=== PATIENT | female | born 1950 | race African-American/Black ===

== ENCOUNTER 2018-07-01 17:34 | Observation (INO) | payer OTHER ==
[2018-07-01 17:51] VITALS: TEMP 99; BMI 32.5
--- NOTE | 2018-07-01 18:13 | PDOC ---
Attending Attestation - HPI HPI: The patient is 68 year old female with a past medical history of GERD, diabetes , hypertension, and hyperlipidemia who presents to the emergency department for evaluation of a 1 day history of nausea, headache, and decreased appetite. The patient reports a 3 day history of intermittent chills and constipation, but notes she is still able to pass flatus. She also reports intermittent episodes of right sided chest pain which is reminiscent to her acid reflux pain which she states has been going on for 10 years. The patient denies dyspnea, diarrhea, and emesis. Documentation prepared by Reggie Long, acting as medical billing manager for Nicolás Pizano MD. - Physicial Exam PE: wnwd 68 y/o female in no acute distress head ncat Heart RRR. No gallops, murmurs, or rubs. lungs clear to auscultation bilaterally abd soft,nontender <Reggie Long - Last Filed: 07/01/18 19:41> - Resident Resident Name: Clinton Alex - ED Attending Attestation I have performed the following: I have examined & evaluated the patient, The case was reviewed & discussed with the resident, I agree w/resident's findings & plan, Exceptions are as noted - Medical Decision Making 07/01/18 19:53 Patient is a 68-year-old female with multiple comorbidities who presents with persistent nausea, generalized weakness and malaise associated with intermittent mild headache and right-sided chest pain. In the ER, patient is afebrile, hypertensive on initial evaluation. Chest x-ray reveals no evidence of infiltrate or effusion. EKG reveals inverted T waves in 1, aVL, V4 through V6 (V4 through V6 T-wave abnormalities are new when compared to an EKG from 2015.) Differential diagnoses includes ACS versus esophagitis versus GERD versus gastritis versus pancreatitis versus viral syndrome. Will administer aspirin, H2 blockers, transdermal nitroglycerin; we'll judiciously hydrate. Will obtain serial EKGs. Will reassess. <Nicolás Pizano - Last Filed: 07/01/18 21:54> Heart Score/ECG Review - ECG Impressions Comment:: EKG was reviewed by Dr. Pizano at 19:32. Impression: Normal sinus rhythm. Possible left atrial enlargement. T wave abnormality, consider lateral ischemia. Abnormal ECG. Vent. rate: [address] interval: 126 ms QRS duration: 86 ms QT/QTc: 414/414 ms PRT axes: 62 37 121 <Reggie Long - Last Filed: 07/01/18 19:41> - History History: Slightly suspicious - Electrocardiogram EKG: Non specific repolarization disturbance - Age Age: >/= 65 - Risk Factors Risk Factors Heart Score: Yes Hx Hypercholesterolemia, Yes Hx Hypertension, Yes Hx Diabetes Based on the list above the patient has:: >/=3 risk factors or Hx atherosclerotic disease - Troponin Troponin: </= normal limit - Score Heart Score - Total: 5 <Nicolás Pizano - Last Filed: 07/01/18 21:54>
[2018-07-01] MEDS ORDERED: ONDANSETRON *ODT* 4 MG TABLET SL ONE (18:17)
--- NOTE | 2018-07-01 18:17 | PDOC ---
History of Present Illness - General Chief Complaint: Nausea Stated Complaint: NAUSEA Time Seen by Provider: 07/01/18 18:07 History Source: Patient Exam Limitations: No Limitations - History of Present Illness Initial Comments: 07/01/18 18:11 68 yo female pmh of HTN, HLD, IDDM, GERD, hysterectomy and cholycystectomy presents to the ED for 1 day of progressive nausea and poor appetite and 3 days of constipation (patient admits to passing gas today) and chills. Pt admits to right sided non exertional CP that feels like past GERD flare ups she has had. Pt denies sick contacts, recent travel or eating new foods. Denies abdominal pain in any quadrant, SOB, changes in urinary habits, back pain. Past History - Past Medical History Allergies/Adverse Reactions: Allergies Allergy/AdvReac Type Severity Reaction Status Date / Time No Known Allergies Allergy Verified 07/01/18 17:51 Home Medications: Ambulatory Orders Losartan Potassium 100 mg PO DAILY 06/13/15 Amlodipine Besylate [Norvasc -] 5 mg PO DAILY 07/01/18 Aspirin [Aspirin EC] 81 mg PO DAILY 07/01/18 Famotidine [Pepcid] 40 mg PO DAILY 07/01/18 Repaglinide [Prandin -] 1 mg PO TID 07/01/18 Simethicone [Gas Relief] 125 mg PO QID 07/01/18 COPD: No Diabetes: Yes HTN: Yes - Surgical History Cholecystectomy: Yes - Immunization History Immunization Up to Date: Yes - Suicide/Smoking/Psychosocial Hx Smoking History: Never smoked Have you smoked in the past 12 months: No Information on smoking cessation initiated: No Hx Alcohol Use: No Drug/Substance Use Hx: No Substance Use Type: None Review of Systems - Review of Systems Constitutional: Yes: Chills. No: Fever Respiratory: No: Shortness of Breath Cardiac (ROS): No: Chest Pain ABD/GI: Yes: Constipated, Nausea. No: Diarrhea, Vomiting : No: Burning, Dysuria, Frequency, Flank Pain Musculoskeletal: No: Back Pain *Physical Exam - Vital Signs Last Vital Signs Temp Pulse Resp BP Pulse Ox 99.0 F 64 16 186/94 H 99 07/01/18 17:48 07/01/18 17:48 07/01/18 17:48 07/01/18 17:48 07/01/18 17:48 - Physical Exam General Appearance: Yes: Nourished, Appropriately Dressed, Apparent Distress ( supine holding abdomen stating she feels as though she will vomit) HEENT: positive: EOMI Respiratory/Chest: positive: Lungs Clear, Normal Breath Sounds Cardiovascular: positive: Regular Rhythm, Regular Rate, S1, S2. negative: Edema , JVD, Murmur Vascular Pulses: Dorsalis-Pedis (R): 4+, Doralis-Pedis (L): 4+ Gastrointestinal/Abdominal: positive: Normal Bowel Sounds, Flat, Soft. negative : Pulsatile Mass, Distended, Guarding, Rebound, Tenderness Musculoskeletal: positive: Normal Inspection. negative: CVA Tenderness Extremity: positive: Normal Capillary Refill Integumentary: positive: Normal Color, Dry, Warm Neurologic: positive: Fully Oriented, Alert, Normal Mood/Affect, Normal Response Moderate Sedation - Procedure Monitoring Vital Signs: Procedure Monitoring Vital Signs Temperature 99.0 F 07/01/18 17:48 Pulse Rate 64 07/01/18 17:48 Respiratory Rate 16 07/01/18 17:48 Blood Pressure 186/94 H 07/01/18 17:48 O2 Sat by Pulse Oximetry (%) 99 07/01/18 17:48 ED Treatment Course - LABORATORY CBC & Chemistry Diagram: 07/01/18 19:25 07/01/18 19:25 - RADIOLOGY Radiology Studies Ordered: Category Date Time Status CHEST X-RAY PORTABLE* [RAD] Stat Radiology 07/01/18 18:08 Ordered Medical Decision Making - Medical Decision Making 07/01/18 20:14 68 yo female pmh IDDM, HTN, HLD and GERD presents to the ED for 1 day of nausea without vomiting and 3 days of constipation and chills. Rectal temp 99.2 BP elevated, pt states she took BP meds today DDX includes but is not limited to: ACS, UTI, kidney stone, diverticulitis, SBO Pt receiving 500ml NS and Pending labs, ekg, imaging sign out to Dr. Marmolejo
[2018-07-01] MEDS ORDERED: ONDANSETRON *ODT* 4 MG TABLET ONE (19:20)
[2018-07-01] MEDS ORDERED: ASPIRIN 325 MG TABLET PO ONE (19:37)
[2018-07-01] MEDS ORDERED: NITROGLYCERIN 2% OINTMENT - 1GM PACKET TD ONE ×2 (19:37→20:11)
--- NOTE | 2018-07-01 19:37 | PDOC ---
*Physical Exam - Vital Signs Last Vital Signs Temp Pulse Resp BP Pulse Ox 99.0 F 64 16 186/94 H 99 07/01/18 17:48 07/01/18 17:48 07/01/18 17:48 07/01/18 17:48 07/01/18 17:48 Heart Score/ECG Review - History History: Slightly suspicious - Electrocardiogram EKG: Non specific repolarization disturbance - Age Age: >/= 65 - Risk Factors Risk Factors Heart Score: Yes Hx Hypercholesterolemia, Yes Hx Hypertension, Yes Hx Diabetes, Yes Positive family hx of cardiac disease Based on the list above the patient has:: >/=3 risk factors or Hx atherosclerotic disease - Troponin Troponin: </= normal limit - Score Heart Score - Total: 5 - ECG Intrepretation Rhythm: Regular Rhythm - [place]: Normal - P and [place] Atrial Enlargement: Left - ST and T Non Specific ST-T Wave changes: Yes Comment:: inverted T waves in 1, AvL, v4-v6 - ECG Impressions Comment:: flipped T waves in multiple leads which were not present in [address] elevation in v1. ED Treatment Course - LABORATORY CBC & Chemistry Diagram: 07/01/18 19:25 07/01/18 19:25 Medical Decision Making - Medical Decision Making Patient received as sign out from the day team. I placed a 22 gauge IV in the left forearm and sent labs. 1st EKG showed flipped T 2waves in1, AvL, v4-v6 which were not present in 2015 EKG Repeat EKG 20 minutes later showed no acute changes. Repeat EKG 30 minutes later shows no acute changes. Given patient has a HEART score of 5 will admit for further cardiac workup. *DC/Admit/Observation/Transfer Diagnosis at time of Disposition: Chest pain, EKG abnormalities - Discharge Dispostion Decision to Admit order: Yes - Referrals - Patient Instructions - Post Discharge Activity Procedures - Additional Procedures Additional Procedures: other (22 Gauge IV placed in left forearm)
[2018-07-01] MEDS ORDERED: FAMOTIDINE 20 MG/50 ML IVPB 20 MG/50 ML MG IVPB ONE ×2 (19:38→20:11)
[2018-07-01 19:39] LABS: BASO % 0.7 % (0-2.0); EOS % 1.3 % (0-4.5); HEMATOCRIT 40.3 % (32.4-45.2); HEMOGLOBIN 13.9 GM/dL (10.7-15.3); LYMPH % 21.4 % (8-40); MCH 28.8 pg (25.7-33.7); MCHC 34.6 g/dl (32.0-36.0); MEAN CELL VOLUME 83.3 fl (80-96); MEAN PLT VOLUME 9.9 fl (7.5-11.1); MONO % 5.7 % (3.8-10.2); NEUT % 70.9 % (42.8-82.8); PLATELET COUNT 232 K/MM3 (134-434); RBC 4.84 M/mm3 (3.60-5.2); RDW 15.9 % (11.6-15.6); WHITE BLOOD COUNT 6.2 K/mm3 (4.0-10.0)
[2018-07-01] MEDS ORDERED: ASPIRIN 81 MG CHEWABLE TABLETS ONE (20:10)
[2018-07-01 20:32] LABS: ALBUMIN 3.7 g/dl (3.4-5.0); ALK PHOS 119 U/L (45-117); ANION GAP 6 MMOL/L (8-16); BILIRUBIN,TOTAL 0.5 mg/dL (0.2-1); BLOOD UREA NITROGEN 15 mg/dL (7-18); CHLORIDE 107 mmol/L (98-107); CO2 27 mmol/L (21-32); CREATININE 1.1 mg/dL (0.55-1.3); GLUCOSE,RANDOM 173 mg/dL (74-106); LIPASE 116 U/L (73-393); POTASSIUM 3.7 mmol/L (3.5-5.1); SGOT/AST 24 U/L (15-37); SGPT/ALT 27 U/L (13-61); SODIUM 140 mmol/L (136-145); TOT PROT 7.9 g/dl (6.4-8.2)
[2018-07-01 20:35] LABS: URINE APPEARANCE CLEAR; URINE BILIRUBIN NEGATIVE (<2.0 mg/dL); URINE COLOR LTYELLOW; URINE GLUCOSE (UA) 1+ (NEGATIVE); URINE KETONE NEGATIVE (NEGATIVE); URINE LEUK ESTERASE NEGATIVE (NEGATIVE); URINE NITRITE NEGATIVE (NEGATIVE); URINE PROTEIN 2+ (NEGATIVE); URINE UROBILINOGEN NEGATIVE mg/dL (0.2-1.0)
[2018-07-01 20:38] LABS: EPI CELLS RARE /HPF (FEW); URINE BACTERIA RARE /hpf (NONE SEEN); URINE HYALINE CAST 1 /lpf; URINE MUCUS RARE
--- NOTE | 2018-07-01 23:11 | PN ---
Teaching Attending Note Name of Resident: Shimon Garcia ATTENDING PHYSICIAN STATEMENT I saw and evaluated the patient. I reviewed the resident's note and discussed the case with the resident. I agree with the resident's findings and plan as documented. CC: R-sided/substernal CP SUBJECTIVE: Seen and examined; please refer to the resident note for further historical information. Briefly, this is a 68 y/o female presenting with CP. She has multiple risk factors and does have a history of CAD though we do not have any prior cath reports, etc. She is hemodynamically stable and afebrile. The pain has been on and off for years. It is R-sided/substernal and sharp in nature; mild association with some foods. She estimated her stents being 7 years ago. She had an initial negative set of enzymes; cardiomegaly noted. EKG shows inverted T-waves in V3,4,5 that were not there on the prior study from 2014. She is hypertensive to the 190s. She is chest pain free at this juncture. Placing on telemetry on observation. PMH: GERD, DM, HTN, HLD, CAD (states she had prior stents, hasn't seen CV in >5 years) PSH reviewed; hysterectomy and cholecystectomy Socially she is nonsmoker, nondrinker FH asked and noncontributory Medication list reviewed OBJECTIVE: VS, labs, imaging reviewed NAD, AAOx3, resting in bed RRR s1/2 no mgr Lungs CTAB w/ sym exp NC AT EOMI PERRLA CN2-12 wnl, no fnd Labs show transaminitis that is stable from earlier this month, troponin negative, CBC unremarkable, BMP unremrkable aside from hyperglycemis to 170s CXR unremarkable but enlarged heart EKG with new T-wave inversions in V4-V6 which were not on old EKG from remote time ago ASSESSMENT AND PLAN: Mrs. Flores presents with Chest Pain found to be hypertensive to 190s. 1) Chest Pain -High risk, especially given the history of CAD even though the presentation could be construed as somewhat atypical. Furthermore, the patient's hypertension could be contributing to the sensation of chest pain. Still, need to r/o ACS. -Tele, trend troponins, stress test in the AM and 2D echo -TSH, Lipid, A1c. -Consider CV consult. Obtain old records. Control HTN as per issue #2 2) Hypertensive Urgency -Continue Losartan 100; increase amlodipine to 10. Though for CAD, adding coreg 3.125 BID which will have some effect on BP. PRN hydralazine. If uncontrolled on this regimine consider addition of a third agent. Monitor on telemetry. No evidence of end organ damage 3) History of CAD -Obtain old records; h/o remote stent -ASA 81 PO QD. Continue ARB. Adding BB. She states she had muscle pain with statins; check lipids and see what old drugs she reacted on. Once her degree of HLD is determined we can consider initiating here vs. OP followup 4) GERD -Given the association of the CP with eating could indicate GERD (she is s/p cholecystectomy) -DC H2 bryanna, start protonix 40 PO QD 5) Cardiomegaly -Echo pending; euvolemic now. Careful fluid management. At the very least is at risk for CHF given prior CAD and hypertension 6) DM -SSI; check A1c and verify home meds 7) HLD -Discussed in #3 Full Code
[2018-07-01] MEDS ORDERED: LABETALOL HCL 100 MG TABLET (FP) PO ONE (23:21)
[2018-07-01] MEDS ORDERED: hydrALAZINE HCL 20 MG/ML VIAL IVPUSH ONE (23:45)
--- NOTE | 2018-07-01 23:46 | HP ---
CHIEF COMPLAINT: R sided chest pain HISTORY OF PRESENT ILLNESS: 68 year old female with a hx of GERD, DM, HTN, HLD, previous stents 7 years ago presents for 1 day of R sided chest pain she states began this morning. Reports the pain on the R side and substernal, rates it at an 8/10 and only radiates to the right. States that milk, spices, and anything else that she eats exacerbates the pain. Does not report any pain on deep inspiration or palpation of the area. States that she has had this pain for 20 years on and off, for which she was diagnosed with GERD in the past and started on famotidine. She has had coronary artery disease (patient is a poor historian on this aspect) and reports she had stents put in 7 years ago but does not remember who the director web is and does not recall any further history about her condition. 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 ER course was notable for: (1) EKG new T wave inversions in leads V4-V6 (2) Trop negative (3) Recent Travel: denies PAST MEDICAL HISTORY: GERD, DM, HTN, HLD PAST SURGICAL HISTORY: stents put in, cholecystectomy, hysterectomy Social History: Smoking: denies Alcohol: denies Drugs: denies Family History: DM and HTN in mother Allergies No Known Allergies Allergy (Verified 07/01/18 17:51) HOME MEDICATIONS: Home Medications Medication Instructions Recorded Losartan Potassium 100 mg PO DAILY 06/13/15 Amlodipine Besylate [Norvasc -] 5 mg PO DAILY 07/01/18 Aspirin [Aspirin EC] 81 mg PO DAILY 07/01/18 Famotidine [Pepcid] 40 mg PO DAILY 07/01/18 Repaglinide [Prandin -] 1 mg PO TID 07/01/18 Simethicone [Gas Relief] 125 mg PO QID 07/01/18 REVIEW OF SYSTEMS CONSTITUTIONAL: Absent: fever, chills, diaphoresis, generalized weakness, malaise, loss of appetite, weight change HEENT: Absent: rhinorrhea, nasal congestion, throat pain, throat swelling, difficulty swallowing, mouth swelling, ear pain, eye pain, visual changes CARDIOVASCULAR: Absent: chest pain, syncope, palpitations, irregular heart rate, lightheadedness , peripheral edema RESPIRATORY: Absent: cough, shortness of breath, dyspnea with exertion, orthopnea, wheezing, stridor, hemoptysis GASTROINTESTINAL: Absent: abdominal pain, abdominal distension, nausea, vomiting, diarrhea, constipation, melena, hematochezia GENITOURINARY: Absent: dysuria, frequency, urgency, hesitancy, hematuria, flank pain, genital pain MUSCULOSKELETAL: Absent: myalgia, arthralgia, joint swelling, back pain, neck pain SKIN: Absent: rash, itching, pallor HEMATOLOGIC/IMMUNOLOGIC: Absent: easy bleeding, easy bruising, lymphadenopathy, frequent infections ENDOCRINE: Absent: unexplained weight gain, unexplained weight loss, heat intolerance, cold intolerance NEUROLOGIC: Absent: headache, focal weakness or paresthesias, dizziness, unsteady gait, seizure, mental status changes, bladder or bowel incontinence PSYCHIATRIC: Absent: anxiety, depression, suicidal or homicidal ideation, hallucinations. PHYSICAL EXAMINATION Vital Signs - 24 hr 07/01/18 17:48 Temperature 99.0 F Pulse Rate 64 Respiratory 16 Rate Blood Pressure 186/94 H O2 Sat by Pulse 99 Oximetry (%) GENERAL: A&Ox3, no acute distress EYES: PERRLA, EOMI ENT: Moist mucus membranes NECK: No JVD LUNGS: CTA, no wheezes HEART: RRR, no murmurs ABDOMEN: Soft, nontender, BS present MUSCULOSKELETAL: No CVA Tenderness EXTREMITIES: 2+ pulses, no edema. NEUROLOGICAL: Cranial nerves II-XII intact. Laboratory Results - last 24 hr 07/01/18 07/01/18 07/01/18 19:25 19:25 20:25 WBC 6.2 RBC 4.84 Hgb 13.9 Hct 40.3 MCV 83.3 MCH 28.8 MCHC 34.6 RDW 15.9 H Plt Count 232 MPV 9.9 Absolute Neuts (auto) 4.4 Neutrophils % 70.9 Lymphocytes % 21.4 Monocytes % 5.7 Eosinophils % 1.3 Basophils % 0.7 Nucleated RBC % 0 Sodium 140 Potassium 3.7 Chloride 107 Carbon Dioxide 27 Anion Gap 6 L BUN 15 Creatinine 1.1 Creat Clearance w eGFR 49.10 Random Glucose 173 H Calcium 9.0 Total Bilirubin 0.5 AST 24 ALT 27 Alkaline Phosphatase 119 H Creatine Kinase 336 H Creatine Kinase Index 0.9 CK-MB (CK-2) 3.2 Troponin I < 0.02 Total Protein 7.9 Albumin 3.7 Lipase 116 Urine Color Ltyellow Urine Appearance Clear Urine pH 7.0 Ur Specific [place] 1.013 Urine Protein 2+ H Urine Glucose (UA) 1+ H Urine Ketones Negative Urine Blood Negative Urine Nitrite Negative Urine Bilirubin Negative Urine Urobilinogen Negative Ur Leukocyte Esterase Negative Urine WBC (Auto) 1 Urine RBC (Auto) 1 Ur Epithelial Cells Rare Urine Bacteria Rare Hyaline Casts 1 Urine Mucus Rare ASSESSMENT/PLAN: 68 year old female with a hx of GERD, DM, HTN, HLD, previous stents 7 years ago presents for 1 day of R sided chest pain #R sided chest pain: likely 2/2 GERD due to exacerbation with food, but with EKG changes and HEART score ~6, will admit to r/o cardiac pathology -obs telemetry -troponins were negative initially, will repeat now -EKG showed new T-wave inversions in leads V4-V6 -ordered echocardiogram -ordered lexiscan stress for the AM, NPO after midnight for stress test -cardiac monitoring -ASA 325 given in ED -continue home ASA 81 -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, will hold now -pt hypertensive - will treat -likely GERD related, will switch famotidine to protonix 40mg -consider cardiology consultation in AM #Hypertensive Urgency: BP was 191/116 in ED -increase amlodipine to 10mg in the AM -continue losartan 100mg daily -hydralazine 10mg once now, repeat BP in 1 hour #Diabetes Mellitus: BG was 173 on BMP -continue prandin -BGM ACHS -sliding scale as ordered -A1C in AM #FEN -fluids with LR at 83cc/hr overnight while NPO for stress -NPO for stress -replete lytes as necessary in AM #Prophylaxis -lovenox prophylaxis #Disposition -admit tele obs Visit type - Emergency Visit Emergency Visit: Yes Care time: The patient presented to the Emergency Department on the above date and was hospitalized for further evaluation of their emergent condition. - New Patient This patient is new to me today: Yes Date on this admission: 07/02/18 - Critical Care Critical Care patient: No
[2018-07-02] MEDS ORDERED: LACTATED RINGERS SOLUTION 1,000 ML/1,000 ML INFUS.BAG IV SCH (00:15)
[2018-07-02] MEDS ORDERED: hydrALAZINE HCL 20 MG/ML VIAL ONE (00:27)
[2018-07-02 05:52] LABS: HEMATOCRIT 39.9 % (32.4-45.2); HEMOGLOBIN 12.9 GM/dL (10.7-15.3); MCH 27.1 pg (25.7-33.7); MCHC 32.4 g/dl (32.0-36.0); MEAN CELL VOLUME 83.6 fl (80-96); MEAN PLT VOLUME 9.8 fl (7.5-11.1); PLATELET COUNT 213 K/MM3 (134-434); RBC 4.77 M/mm3 (3.60-5.2); RDW 15.8 % (11.6-15.6); WHITE BLOOD COUNT 5.5 K/mm3 (4.0-10.0)
[2018-07-02 06:36] LABS: ANION GAP 9 MMOL/L (8-16); BLOOD UREA NITROGEN 15 mg/dL (7-18); CALCIUM 8.9 mg/dL (8.5-10.1); CHLORIDE 105 mmol/L (98-107); CO2 25 mmol/L (21-32); CREATININE 1.2 mg/dL (0.55-1.3); GLUCOSE,RANDOM 145 mg/dL (74-106); MAGNESIUM 1.9 mg/dL (1.8-2.4); PHOSPHOROUS 2.6 mg/dL (2.5-4.9); POTASSIUM 3.5 mmol/L (3.5-5.1); SODIUM 139 mmol/L (136-145)
[2018-07-02] MEDS ORDERED: INSULIN SLIDING SCALE (NOVOLOG) 1 VIAL SQ SCH (07:00)
[2018-07-02] MEDS ORDERED: amLODIPine BESYLATE 5 MG TABLET (FP) ONE (07:49)
[2018-07-02] MEDS ORDERED: REPAGLINIDE 1 MG TABLET PO SCH (08:00)
[2018-07-02] MEDS ORDERED: INSULIN (NOVOLOG) ASPART 100 UNITS/ML 10ML VIAL ONE (08:18)
[2018-07-02] MEDS ORDERED: amLODIPine BESYLATE 10 MG TABLET (FP) PO SCH (10:00)
[2018-07-02] MEDS ORDERED: amLODIPine BESYLATE 5 MG TABLET (FP) PO SCH (10:00)
[2018-07-02] MEDS ORDERED: ENOXAPARIN NA (PORCINE) 40 MG/0.4 ML DISP.SYRIN SQ SCH (10:00)
[2018-07-02] MEDS ORDERED: PATIENT'S OWN MEDICATION (NON-FORMULARY) (Losartan Potassium [Losartan Potassium] 100 MG) PO SCH (10:00)
[2018-07-02] MEDS ORDERED: CARVEDILOL 3.125 MG TABLET (FP) PO SCH (10:00)
[2018-07-02] MEDS ORDERED: PANTOPRAZOLE 40 MG TABLET (FP) PO SCH (10:00)
[2018-07-02] MEDS ORDERED: LOSARTAN POTASSIUM 50 MG TABLET (FP) PO SCH (10:00)
[2018-07-02] MEDS ORDERED: RANITIDINE HCL 150 MG TABLET (FP) PO SCH (10:00)
[2018-07-02] MEDS ORDERED: ASPIRIN COATED 81 MG TABLET.EC PO SCH (10:00)
[2018-07-02] MEDS ORDERED: REGADENOSON 0.4 MG/5 ML PRE-FILLED SYRINGE IVPUSH ONE ×2 (11:00→12:00)
[2018-07-02] MEDS ORDERED: MAGNESIUM SULF 50% (8.12 MEQ/2 ML-1 GM VIAL) IVPB ONE (11:15)
--- NOTE | 2018-07-02 12:23 | ECHO ---
Version: 1 Name: SHEA MARCUM Exam: Adult Echocardiogram Study Date: 07/02/2018, 9:20 AM Age: 68 Years MMode/2D Measurements & Calculations IVSd: 1.46 cm LVIDs: 1.72 cm LVIDd: 2.9 cm LVPWd: 1.14 cm Ao root diam: 2.7 cm LA dimension: 3.4 cm Doppler Measurements & Calculations MV E max loy: 65.5 cm/sec Med E/e': 15.4 MV A max loy: 112.5 cm/sec Med Peak E' Loy: 4.2 cm/sec MV E/A: 0.58 Lat E/e': 15.1 Lat Peak E' Loy: 4.4 cm/sec Procedure A two-dimensional transthoracic echocardiogram with color flow and Doppler was performed. The study was technically difficult with many images being suboptimal in quality. Left Ventricle There is moderate concentric left ventricular hypertrophy. The left ventricle is not well visualized . The left ventricular ejection fraction is normal. E/A reversal consistent with but not diagnostic of poo r LV compliance. Regional wall motion abnormalities cannot be excluded due to limited visualization. Right Ventricle The right ventricle is not well visualized. Atria Normal left and right atrial size and function. Mitral Valve There is mild mitral valve thickening. There is no mitral valve stenosis. There is trace to mild christopher ral regurgitation. Tricuspid Valve The tricuspid valve is not well visualized. There is no tricuspid stenosis. There was insufficient T R detected to calculate RV systolic pressure. Aortic Valve The aortic valve is not well visualized. There is moderate aortic valve thickening. No hemodynamical ly significant valvular aortic stenosis. No aortic regurgitation is present. Pulmonic Valve The pulmonic valve is not well visualized. Great Vessels The aortic root is normal size. Pericardium/Pleura There is no pericardial effusion. Summary Statements There is moderate concentric left ventricular hypertrophy. The left ventricular ejection fraction is normal. The study was technically difficult with many images being suboptimal in quality. The left ventricle is not well visualized. Regional wall motion abnormalities cannot be excluded due to limited visualization. The aortic valve is not well visualized. There is moderate aortic valve thickening. E/A reversal consistent with but not diagnostic of poor LV compliance There is trace to mild mitral regurgitation. There was insufficient TR detected to calculate RV systolic pressure. MD Bill Dozier 07/02/2018, 12:22 PM Ordering Physician: Shimon Garcia Referring Physician: Nicolás Pizano Performed By: Hafsa Keyes
[2018-07-02] MEDS ORDERED: AMINOPHYLLINE 250 MG/10 ML VIAL ONE ×2 (12:35→12:36)
[2018-07-02] MEDS ORDERED: AMINOPHYLLINE 250 MG/10 ML VIAL IVPUSH ONE (13:00)
--- NOTE | 2018-07-02 14:29 | CON.CARD ---
Consult Consult Specialty:: Cardiology Referred by:: Hospitalist Reason for Consultation:: chest pain - History of Present Illness Chief Complaint: chest pain History of Present Illness: 68 year old woman pmh HTN, HLD, DMII, CAD prior stents unknown details, GERD, admitted with R sided chest pain. Pt seen and examined in er in nad. s/p echo and nuclear stress test. states she is feeling better since admission. states she has not had routine fup as outpatient, was previously seeing Dr. Jaylen Jo but he is no longer in practice. she has had a visiting MD for the past 3 years at home. states her pain feels like her GERD. denies sob, palpitations, pnd, orthopnea, LE edema. - History Source History Provided By: Patient, Medical Record Limitations to Obtaining History: No Limitations - Past Medical History Cardio/Vascular: Yes: CAD, HTN, Hyperlipdemia Gastrointestinal: Yes: GERD - Alcohol/Substance Use Hx Alcohol Use: No - Smoking History Smoking history: Never smoked Have you smoked in the past 12 months: No - Social History Usual Living Arrangement: With Child ADL: Family Assistance History of Recent Travel: No Home Medications - Allergies Allergies/Adverse Reactions: Allergies Allergy/AdvReac Type Severity Reaction Status Date / Time No Known Allergies Allergy Verified 07/01/18 17:51 - Home Medications Home Medications: Ambulatory Orders Losartan Potassium 100 mg PO DAILY 06/13/15 Amlodipine Besylate [Norvasc -] 5 mg PO DAILY 07/01/18 Aspirin [Aspirin EC] 81 mg PO DAILY 07/01/18 Famotidine [Pepcid] 40 mg PO DAILY 07/01/18 Repaglinide [Prandin -] 1 mg PO TID 07/01/18 Simethicone [Gas Relief] 125 mg PO QID 07/01/18 Family Disease History - Family Disease History Family History: Denies Review of Systems - Review of Systems Constitutional: denies: No Symptoms, Chills, Diaphoresis, Fever, Lethargy, Loss of Appetite, Malaise, Night Sweats, Unintentional Wgt. Loss, Weakness, Other Eyes: denies: No Symptoms, Blind Spots, Blurred Vision, Double Vision, Eye Pain , Floaters, Photophobia, Recent Change in Vision, Other HENT: denies: No Symptoms, Difficult Swallowing, Ear Discharge, Ear Pain, Epistaxis, Gingival Bleeding, Hearing Loss, Mouth Swelling, Nasal Congestion, Ocular Prosthesis, Throat Pain, Toothache, Ringing in Ears, Other Neck: denies: No Symptoms, Decreased ROM, Lumps, Pain on Movement, Stiffness, Swollen Glands, Tenderness, Other Cardiovascular: reports: Chest Pain. denies: No Symptoms, Edema, Palpitations, Shortness of Breath, Other Respiratory: denies: No Symptoms, Cough, Exercise Intolerance, Hemoptysis, Orthopnea, PND, Snoring, SOB, SOB on Exertion, Wheezing, Other Gastrointestinal: reports: Dysphagia. denies: No Symptoms, Abdominal Pain, Bloating, Constipation, Diarrhea, Indigestion, Melena, Nausea, Rectal Bleeding, Vomiting, Vomiting Blood, Other Genitourinary: denies: No Symptoms, Burning, Discharge, Dysuria, Flank Pain, Frequency, Hematuria, Incontinence, Lesions, Menses, Pain, Testicular Mass, Testicular Pain, Testicular Swelling, Urgency, Vaginal Bleeding, Other Breasts: denies: No Symptoms Reported, See HPI, Breast Implants, Discharge from Nipple, Lumps, Pain, Skin Changes, Other Musculoskeletal: denies: No Symptoms, Back Pain, Crepitus, Decreased ROM, Extremity Pain, Joint Pain, Joint Swelling, Muscle Pain, Muscle Cramps, Muscle Weakness, Other Integumentary: denies: No Symptoms, Blister, Bruising, Change in Color, Eczema, Erythema, Incision, Lesions, Lump, Pallor, Pruritis, Rash, Wound, Other Neurological: denies: No Symptoms, Change in LOC, Change in Speech, Confusion, Dizziness, Headache, Incoordination, Numbness, Parasthesia, Pre-Existing Deficit , Seizure, Syncope, Tremors, Unsteady Gait, Weakness, Other Hematology/Lymphatic: denies: No Symptoms, Easily Bruised, Excessive Bleeding, Swollen Glands, Other Psychiatric: denies: No Symptoms, Altered Sleep Pattern, Anxiety, Depression, Hallucinations, Panic, Paranoia, Suicidal, Other - Risk Factors Known Risk Factors: Yes: Hypercholesterolemia, Hypertension Vital Signs: Vital Signs Temperature 99.0 F 07/01/18 17:48 Pulse Rate 101 H 07/02/18 07:21 Respiratory Rate 18 07/02/18 07:21 Blood Pressure 137/80 07/02/18 07:21 O2 Sat by Pulse Oximetry (%) 96 07/02/18 07:21 Constitutional: Yes: No Distress, Calm Eyes: Yes: Conjunctiva Clear, EOM Intact, PERRL HENT: Yes: Atraumatic, Normocephalic Neck: Yes: Supple, Trachea Midline Respiratory: Yes: Regular, CTA Bilaterally. No: Rales, Rhonchi, Wheezes Gastrointestinal: Yes: Normal Bowel Sounds, Soft. No: Distention, Tenderness Cardiovascular: Yes: Regular Rate and Rhythm. No: Bradycardia, Tachycardia, Pulse Irregular, Gallop, Rub, Varicosities JVD: No Carotid Bruit: No PMI: Non-Displaced Heart Sounds: Yes: S1, S2. No: Split S2, S3, S4, Clicks, Gallop, Rub, Bruit Murmur: No: Systolic Murmur, Diastolic Murmur Musculoskeletal: Yes: WNL Extremities: Yes: WNL Edema: No Peripheral Pulses WNL: Yes Peripheral Pulses: 2+ Left Doralis Pedis, 2+ Right Dorsalis Pedis Integumentary: Yes: WNL Neurological: Yes: Alert, Oriented Psychiatric: Yes: Alert, Oriented - Other Data Labs, Other Data: CBC, BMP 07/02/18 05:25 07/02/18 05:25 Troponin, BNP 07/01/18 07/02/18 07/02/18 19:25 05:25 05:25 Troponin I < 0.02 < 0.02 Cancelled Troponin, BNP 07/01/18 07/02/18 07/02/18 19:25 05:25 05:25 Troponin I < 0.02 < 0.02 Cancelled T inversion Echo: Report Reviewed Imaging - Results Chest X-ray: Report Reviewed, Image Reviewed EKG: Report Reviewed, Image Reviewed Other: Report Reviewed, Image Reviewed Assessment/Plan 68 year old woman pmh HTN, HLD, DMII, CAD prior stents unknown details, GERD, admitted with R sided chest pain. Pt seen and examined in er in nad. s/p echo and nuclear stress test. states she is feeling better since admission. states she has not had routine fup as outpatient, was previously seeing Dr. Jaylen Jo but he is no longer in practice. she has had a visiting MD for the past 3 years at home. states her pain feels like her GERD. denies sob, palpitations, pnd, orthopnea, LE edema. chest pain-atypical, unlikely ACS -pain unlikely cardiac in origin -troponin wnl -echo today 07/02/18 showed normal LVEF, mod lVH, mild valvular abnl -nuclear stress test pending from today -if no sig ischemia on nuclear stress test pt would be acceptable for discharge from cardiac standpoint with outpatient fup HTN-severely uncontrolled on admission -now adequately controlled -cont home meds and adjust as needed.
--- NOTE | 2018-07-02 16:48 | EKG ---
Test Reason : Blood Pressure : / mmHG Vent. Rate : 080 BPM Atrial Rate : 080 BPM P-R Int : 120 ms QRS Dur : 084 ms QT Int : 386 ms P-R-T Axes : 071 041 123 degrees QTc Int : 445 ms POOR DATA QUALITY, INTERPRETATION MAY BE ADVERSELY AFFECTED NORMAL SINUS RHYTHM POSSIBLE LEFT ATRIAL ENLARGEMENT T WAVE ABNORMALITY, CONSIDER LATERAL ISCHEMIA ABNORMAL ECG WHEN COMPARED WITH ECG OF 01-JUL-2018 20:37, NONSPECIFIC T WAVE ABNORMALITY, WORSE IN INFERIOR LEADS Confirmed by ANJALI PAULSON MD ([id number]) on 07/02/2018 4:47:21 PM Referred By: Confirmed By:ANJALI PAULSON MD
--- NOTE | 2018-07-02 16:52 | EKG ---
Test Reason : Blood Pressure : / mmHG Vent. Rate : 061 BPM Atrial Rate : 061 BPM P-R Int : 126 ms QRS Dur : 084 ms QT Int : 418 ms P-R-T Axes : 061 033 127 degrees QTc Int : 420 ms NORMAL SINUS RHYTHM T WAVE ABNORMALITY, CONSIDER LATERAL ISCHEMIA ABNORMAL ECG WHEN COMPARED WITH ECG OF 01-JUL-2018 19:29, NO SIGNIFICANT CHANGE WAS FOUND Confirmed by ANJALI PAULSON MD ([id number]) on 07/02/2018 4:51:43 PM Referred By: Confirmed By:ANJALI PAULSON MD
--- NOTE | 2018-07-02 16:52 | EKG ---
Test Reason : Blood Pressure : / mmHG Vent. Rate : 060 BPM Atrial Rate : 060 BPM P-R Int : 126 ms QRS Dur : 086 ms QT Int : 414 ms P-R-T Axes : 062 037 121 degrees QTc Int : 414 ms NORMAL SINUS RHYTHM POSSIBLE LEFT ATRIAL ENLARGEMENT T WAVE ABNORMALITY, CONSIDER LATERAL ISCHEMIA ABNORMAL ECG WHEN COMPARED WITH ECG OF 13-JUN-2015 20:41, T WAVE INVERSION MORE EVIDENT IN LATERAL LEADS Confirmed by LORENE HOLBROOK, ANJALI ([id number]) on 07/02/2018 4:51:58 PM Referred By: Confirmed By:ANJALI PAULSON MD
--- NOTE | 2018-07-02 17:16 | DS ---
Physical Exam: SUBJECTIVE: Patient seen and examined at bedside this morning. Patient reports improvement of chest pain. She denies headache, dizziness, fever, chills, nausea , vomiting, SOB, palpitations, abdominal pain, diarrhea, constipation, urinary symptoms. OBJECTIVE: Vital Signs Period Temp Pulse Resp BP Sys/Gómez Pulse Ox Last 24 Hr 99.0 F 64-101 16-18 137-186/80-94 96-99 PHYSICAL EXAM GENERAL: The patient is awake, alert, and fully oriented, in no acute distress. HEAD: Normal with no signs of trauma. EYES: PERRLA, EOMI, sclera anicteric, conjunctiva clear. ENT: Ears normal, nares patent, oropharynx clear without exudates, moist mucous membranes. NECK: Trachea midline, full range of motion, supple. LUNGS: Breath sounds equal, clear to auscultation bilaterally. HEART: Regular rate and rhythm, S1, S2 without murmur, rub or gallop. ABDOMEN: Soft, nontender, nondistended, normoactive bowel sounds. EXTREMITIES: 2+ pulses, warm, well-perfused, no edema. NEUROLOGICAL: Cranial nerves II through XII grossly intact. Normal speech, gait not observed. PSYCH: Normal mood, normal affect. SKIN: Warm, dry, normal turgor, no rashes or lesions noted. LABS Laboratory Results - last 24 hr 07/01/18 07/01/18 07/01/18 19:25 19:25 20:25 WBC 6.2 RBC 4.84 Hgb 13.9 Hct 40.3 MCV 83.3 MCH 28.8 MCHC 34.6 RDW 15.9 H Plt Count 232 MPV 9.9 Absolute Neuts (auto) 4.4 Neutrophils % 70.9 Lymphocytes % 21.4 Monocytes % 5.7 Eosinophils % 1.3 Basophils % 0.7 Nucleated RBC % 0 Sodium 140 Potassium 3.7 Chloride 107 Carbon Dioxide 27 Anion Gap 6 L BUN 15 Creatinine 1.1 Creat Clearance w eGFR 49.10 POC Glucometer Random Glucose 173 H Hemoglobin A1c % Calcium 9.0 Phosphorus Magnesium Total Bilirubin 0.5 AST 24 ALT 27 Alkaline Phosphatase 119 H Creatine Kinase 336 H Creatine Kinase Index 0.9 CK-MB (CK-2) 3.2 Troponin I < 0.02 Total Protein 7.9 Albumin 3.7 Lipase 116 TSH Urine Color Ltyellow Urine Appearance Clear Urine pH 7.0 Ur Specific [place] 1.013 Urine Protein 2+ H Urine Glucose (UA) 1+ H Urine Ketones Negative Urine Blood Negative Urine Nitrite Negative Urine Bilirubin Negative Urine Urobilinogen Negative Ur Leukocyte Esterase Negative Urine WBC (Auto) 1 Urine RBC (Auto) 1 Ur Epithelial Cells Rare Urine Bacteria Rare Hyaline Casts 1 Urine Mucus Rare 07/02/18 07/02/18 07/02/18 05:25 05:25 05:25 WBC 5.5 RBC 4.77 Hgb 12.9 Hct 39.9 MCV 83.6 MCH 27.1 MCHC 32.4 RDW 15.8 H Plt Count 213 MPV 9.8 Absolute Neuts (auto) Neutrophils % Lymphocytes % Monocytes % Eosinophils % Basophils % Nucleated RBC % Sodium 139 Potassium 3.5 Chloride 105 Carbon Dioxide 25 Anion Gap 9 BUN 15 Creatinine 1.2 Creat Clearance w eGFR 44.41 POC Glucometer Random Glucose 145 H Hemoglobin A1c % 8.4 H Calcium 8.9 Phosphorus 2.6 Magnesium 1.9 Total Bilirubin AST ALT Alkaline Phosphatase Creatine Kinase 290 H Creatine Kinase Index 1.0 CK-MB (CK-2) 3.0 Troponin I < 0.02 Total Protein Albumin Lipase TSH 0.64 Urine Color Urine Appearance Urine pH Ur Specific [place] Urine Protein Urine Glucose (UA) Urine Ketones Urine Blood Urine Nitrite Urine Bilirubin Urine Urobilinogen Ur Leukocyte Esterase Urine WBC (Auto) Urine RBC (Auto) Ur Epithelial Cells Urine Bacteria Hyaline Casts Urine Mucus 07/02/18 07/02/18 05:25 06:56 WBC RBC Hgb Hct MCV MCH MCHC RDW Plt Count MPV Absolute Neuts (auto) Neutrophils % Lymphocytes % Monocytes % Eosinophils % Basophils % Nucleated RBC % Sodium Potassium Chloride Carbon Dioxide Anion Gap BUN Creatinine Creat Clearance w eGFR POC Glucometer [phone] Random Glucose Hemoglobin A1c % Calcium Phosphorus Magnesium Total Bilirubin AST ALT Alkaline Phosphatase Creatine Kinase Cancelled Creatine Kinase Index CK-MB (CK-2) Troponin I Cancelled Total Protein Albumin Lipase TSH Urine Color Urine Appearance Urine pH Ur Specific [place] Urine Protein Urine Glucose (UA) Urine Ketones Urine Blood Urine Nitrite Urine Bilirubin Urine Urobilinogen Ur Leukocyte Esterase Urine WBC (Auto) Urine RBC (Auto) Ur Epithelial Cells Urine Bacteria Hyaline Casts Urine Mucus HOSPITAL COURSE: Date of Admission:07/01/18 Date of Discharge: 07/02/18 Patient is a 68 year old female with a hx of GERD, DM, HTN, HLD, previous stents 7 years ago presents for 1 day of R sided chest pain. Patient was noted to have T wave inversion on her EKG, new as compared to her EKG done in 2015. Troponins were negative twice. Patient was given Pepcid and ASA 325mg at the ED. Patient was also noted to have elevated blood pressure of 191/116. Amlodipine was increased to 10 mg and patient was given hydralazine 10mg once. BP since then remain controlled and patient was started on her home medications. Echo and Stress test were also done which were negative of any urgent concerns. Cardiology consulted and cleared patient for discharge with instructions to follow-up with them. Minutes to complete discharge: 40 Discharge Summary Reason For Visit: ABNORMAL ELECTROCARDIOGRAPHY,CHEST PAIN Current Active Problems Chest pain (Acute) EKG abnormalities (Acute) Condition: Improved - Instructions Diet, Activity, Other Instructions: You were admitted because you had chest pain. Ultrasound of the heart and stress test were done and were negative for any concerns. You were started on 2 new medications for your blood pressure. Please take them as prescribed. 1. Amlodipine 10mg daily. 2. Coreg 3.125mg twice a day. Please continue taking your other home medications as prescribed. Follow-up with the engineering illustrator (Dr. Mariscal) within 1 week. Call the office to schedule an appointment. Please follow-up with your primary care doctor within 1 week. If you do not have one, please call the medical clinic at [facility] to schedule an appointment with Dr. Trinidad. (Saturday 8am-12pm) Call 911 or go to the ED if with any worsening chest pain, shortness of breath, palpitations, fever, chills, nausea, vomiting, abdominal pain or any new concerns noted. Referrals: Adarsh Mariscal MD [Staff Physician] - 1 Week Disposition: HOME - Home Medications Comprehensive Discharge Medication List: Ambulatory Orders Losartan Potassium 100 mg PO DAILY 06/13/15 Aspirin [Aspirin EC] 81 mg PO DAILY 07/01/18 Famotidine [Pepcid] 40 mg PO DAILY 07/01/18 Repaglinide [Prandin -] 1 mg PO TID 07/01/18 Simethicone [Gas Relief] 125 mg PO QID 07/01/18 Amlodipine Besylate [Norvasc -] 10 mg PO DAILY #30 tablet 07/02/18 Carvedilol [Coreg -] 3.125 mg PO BID #60 tablet 07/02/18 This patient is new to me today: Yes Date on this admission: 07/02/18 Emergency Visit: Yes ED Registration Date: 07/01/18 Care time: The patient presented to the Emergency Department on the above date and was hospitalized for further evaluation of their emergent condition. Critical Care patient: No - Discharge Referral Referred to [facility] Med P.C.: No
[2018-07-02 18:05] VITALS: BP 152/84
[2018-07-02 18:57] VITALS: PULSE 98
--- NOTE | 2018-07-02 19:04 | PN ---
Teaching Attending Note Name of Resident: Arabella Belcher ATTENDING PHYSICIAN STATEMENT I saw and evaluated the patient. I reviewed the resident's note and discussed the case with the resident. I agree with the resident's findings and plan as documented. SUBJECTIVE: Patient is feeling better with no acute distress. OBJECTIVE: Vital Signs Temperature 99.0 F 07/01/18 17:48 Pulse Rate 98 H 07/02/18 18:40 Respiratory Rate 18 07/02/18 18:40 Blood Pressure 152/84 07/02/18 18:04 O2 Sat by Pulse Oximetry (%) 99 07/02/18 18:04 GENERAL: The patient is awake, alert, and fully oriented, in no acute distress. HEAD: Normal with no signs of trauma. EYES: PERRLA, EOMI, sclera anicteric, conjunctiva clear. ENT: Ears normal, nares patent, oropharynx clear without exudates, moist mucous membranes. NECK: Trachea midline, full range of motion, supple. LUNGS: Breath sounds equal, clear to auscultation bilaterally. HEART: Regular rate and rhythm, S1, S2 without murmur, rub or gallop. ABDOMEN: Soft, nontender, nondistended, normoactive bowel sounds. EXTREMITIES: 2+ pulses, warm, well-perfused, no edema. NEUROLOGICAL: Cranial nerves II through XII grossly intact. Normal speech, gait not observed. PSYCH: Normal mood, normal affect. SKIN: Warm, dry, normal turgor, no rashes or lesions noted. CBCD WBC 5.5 K/mm3 (4.0-10.0) 07/02/18 05:25 RBC 4.77 M/mm3 (3.60-5.2) 07/02/18 05:25 Hgb 12.9 GM/dL (10.7-15.3) 07/02/18 05:25 Hct 39.9 % (32.4-45.2) 07/02/18 05:25 MCV 83.6 fl (80-96) 07/02/18 05:25 MCHC 32.4 g/dl (32.0-36.0) 07/02/18 05:25 RDW 15.8 % (11.6-15.6) H 07/02/18 05:25 Plt Count 213 K/MM3 (134-434) 07/02/18 05:25 MPV 9.8 fl (7.5-11.1) 07/02/18 05:25 CMP Sodium 139 mmol/L (136-145) 07/02/18 05:25 Potassium 3.5 mmol/L (3.5-5.1) 07/02/18 05:25 Chloride 105 mmol/L (98-107) 07/02/18 05:25 Carbon Dioxide 25 mmol/L (21-32) 07/02/18 05:25 Anion Gap 9 MMOL/L (8-16) 07/02/18 05:25 BUN 15 mg/dL (7-18) 07/02/18 05:25 Creatinine 1.2 mg/dL (0.55-1.3) 07/02/18 05:25 Creat Clearance w eGFR 44.41 (>60) 07/02/18 05:25 Random Glucose 145 mg/dL (74-106) H 07/02/18 05:25 Calcium 8.9 mg/dL (8.5-10.1) 07/02/18 05:25 Total Bilirubin 0.5 mg/dL (0.2-1) 07/01/18 19:25 AST 24 U/L (15-37) 07/01/18 19:25 ALT 27 U/L (13-61) 07/01/18 19:25 Alkaline Phosphatase 119 U/L (45-117) H 07/01/18 19:25 Total Protein 7.9 g/dl (6.4-8.2) 07/01/18 19:25 Albumin 3.7 g/dl (3.4-5.0) 07/01/18 19:25 CARDIAC ENZYMES Creatine Kinase 290 IU/L (26-192) H 07/02/18 05:25 Troponin I < 0.02 ng/ml (0.00-0.05) 07/02/18 05:25 Current Medications Generic Name Dose Route Start Last Admin Trade Name Freq PRN Reason Stop Dose Admin Amlodipine Besylate 10 mg 07/02/18 10:00 07/02/18 09:00 Norvasc - PO 10 mg DAILY XI Administration Aspirin 81 mg 07/02/18 10:00 07/02/18 17:45 Ecotrin - PO 81 mg DAILY XI Administration Carvedilol 3.125 mg 07/02/18 10:00 07/02/18 17:45 Coreg - PO 3.125 mg BID XI Administration Enoxaparin Sodium 40 mg 07/02/18 10:00 Lovenox - SQ DAILY COUNT INCLUDES THE [facility] Insulin Aspart 1 vial 07/02/18 07:00 07/02/18 06:58 Novolog Vial Sliding Scale - SQ Not Given ACHS COUNT INCLUDES THE [facility] Protocol Losartan Potassium 100 mg 07/02/18 10:00 07/02/18 09:00 Cozaar - PO 100 mg DAILY COUNT INCLUDES THE [facility] Administration Pantoprazole Sodium 40 mg 07/02/18 10:00 07/02/18 09:00 Protonix - PO 40 mg DAILY COUNT INCLUDES THE [facility] Administration Repaglinide 1 mg 07/02/18 08:00 Prandin - PO TIDCM COUNT INCLUDES THE [facility] Home Medications Medication Instructions Recorded Losartan Potassium 100 mg PO DAILY 06/13/15 Aspirin [Aspirin EC] 81 mg PO DAILY 07/01/18 Famotidine [Pepcid] 40 mg PO DAILY 07/01/18 Repaglinide [Prandin -] 1 mg PO TID 07/01/18 Simethicone [Gas Relief] 125 mg PO QID 07/01/18 Amlodipine Besylate [Norvasc -] 10 mg PO DAILY #30 tablet 07/02/18 Carvedilol [Coreg -] 3.125 mg PO BID #60 tablet 07/02/18 Chest X-ray: Report Reviewed, Image Reviewed EKG: Report Reviewed, Image Reviewed Other: Report Reviewed, Image Reviewed ASSESSMENT AND PLAN: Patient is a 68 year old woman pmh HTN, HLD, DMII, CAD prior stents unknown details, GERD, admitted with R sided chest pain. # Acute chest pain-troponin is within nl, echo today 07/02/18 showed normal LVEF , mod lVH, mild valvular abnl -nuclear stress test: evidence of small area of mildly intense myocardial ischemia of the inferior lateral wall on stress nuclear images. EJF 61% with moderate LVH, and mild hypokinesis of small area of the inferior lateral wall. # HTN -severely uncontrolled on admission, will discharge the patient on Coreg and Norvasc and follow with cardio within a week for follow up and further care. discharge patient home. with follow up with cardio and PMD. Daughter who is a nurse at bedside. 35min
== END 2018-07-02 18:56 | disposition home or self-care (01) ==
LOC: JER 17:34 → JERBED 22:21
PROVIDERS: ADMIT Internal Medicine; ATTEND Internal Medicine
PROC: 3E033GC Introduction of Other Therapeutic Substance into Peripheral Vein, Percutaneous Approach (ICD-10-PCS; principal; 2018-07-01)
DX: R07.89 Other chest pain (principal); R94.31 Abnormal electrocardiogram [ECG] [EKG]; I16.0 Hypertensive urgency; I25.10 Atherosclerotic heart disease of native coronary artery without angina pectoris; I51.7 Cardiomegaly; E78.5 Hyperlipidemia, unspecified; E11.9 Type 2 diabetes mellitus without complications; K21.9 Gastro-esophageal reflux disease without esophagitis; Z95.5 Presence of coronary angioplasty implant and graft; Z79.82 Long term (current) use of aspirin; Z90.710 Acquired absence of both cervix and uterus; Z90.49 Acquired absence of other specified parts of digestive tract
CPT/HCPCS: 36415; 71045-TC-FY; 78452-TC; 80048; 80053; 81003; 81015; 82550; 82553; 82962; 83036; 83690; 83735; 84100; 84443; 84484; 85025; 85027; 87086; 93005; 93010; 93017; 93306-TC; 96365; 96375; 99285-25; A9502; G0378; J2785; Q0162

== ENCOUNTER 2018-08-14 19:36 | Observation (INO) | payer OTHER ==
--- NOTE | 2018-08-14 19:47 | PDOC ---
History of Present Illness <TammyLindy phan - Last Filed: 08/15/18 01:59> - History of Present Illness Initial Comments: The pt is a 68F w/ a history of HTN, HLD, T2DM, GERD, hysterectomy and cholecystectomy who presents for evaluation of generalized weakness and lightheadedness while visiting her at [facility], [place]. She was worried that she was either hypotensive or hypoglycemic but her sugar earlier was 160s and her BP from [facility] was 100s/60s. She also describes a generalized, gradual onset HOUGH since her episode of lightheadedness, that is not the worst of her life. She denies recent fevers, illness, chest pain, trouble breathing, abdominal pain , N/V/C/D, or changes in sensation/strength 08/14/18 19:46 <Lance Schroeder - Last Filed: 08/15/18 06:13> - General Stated Complaint: WEAKNESS AND DIZZINESS NIH Stroke Scale - Last Known Well Date/Time & Onset Date Last Known Well: 08/14/18 Time Last Known Well: 18:30 - Initial Evaluation Level of consciousness: Alert Ask patient the month and their age: Answers both correctly Ask patient to open & close eyes; make fist and let go: Obeys both correctly Best gaze (horizontal eye movement): Normal Visual field testing: No visual field loss Facial paresis (Show teeth/raise eyebrows/close eyes tight): Normal symmetrical movement Motor Function: Left Arm: Normal Motor Function: Right Arm: Normal (extends arm 90 (or 45) degrees for 10 seconds without drift Motor Function: Left Leg: Normal (extends leg 30 degrees for 5 seconds without drift) Motor Function: Right Leg: Normal (extends leg 30 degrees for 5 seconds without drift) Limb Ataxia: No ataxia Sensory(Use pinprick test arms,legs,trunk,face/side to side): Normal Best language (Describe picture, name items, read sentences): No Aphasia Dysarthria (read several words): Normal articulation Extinction and Inattention: No abnormality - Total Score NIH Stroke Scale Score: 0 <Lance Schroeder - Last Filed: 08/15/18 06:13> tPA Exclusion checklist 3-4.5h - Time Elapsed Date last known well: 08/14/18 Time last known well: 18:30 Elaspsed time: Day(s) and 11 Hour(s) and 36 Minutes - Thrombolytic Therapy Candidate Is patient eligible for thrombolytic therapy: No - Exclusion Criteria 3-4.5 hr SBP greater than 185 or DBP greater than 110mmHg despite tx: No Recent IC/spinal surgery,head trauma or stroke<3mos.: No Hx IC hemorrhage, IC neoplasm, AV malformation or aneurysm: No Active internal bleeding: No Blding diathesis(low plt ct, inc PTT,INR>1.7 or use of NOAC): No Symptoms suggest subarachnoid hemorrhage: No CT demonstrates multilobar infarct(>1/3 cerebral hemiphere): No Arterial puncture at noncompressible site in previous 7 days: No Blood glucose concentration less than 50mg/dL (2.7mmol/L): No - Relative Exclusion Criteria 3-4.5 hr Life expectancy <1 yr or severe co-morbid illness: No : No Patient/family refused: No Rapid improvement: No Stroke severity too mild: No Recent acute SD (w/in previous 3 months): No Seizure at onset with postictal residual neuro impairments: No Major surgery or serious trauma w/in previous 14 days: No Recent GI or hemorrhage (w/in previous 21 days): No - Add'l Relative Exclusion 3-4.5 hr Age > 80: No Hx of both diabetes AND prior ischemic stroke: No Taking an oral anticoagulant regardless of INR: No NIHSS >25: No - Ineligibility reason(s) Reasons No tPA given: See reason(s) noted above (No focal deficits; Neuro intact ) <Lance Schroeder - Last Filed: 08/15/18 06:13> Past History <Lindy Hauser - Last Filed: 08/15/18 01:59> - Past Medical History COPD: No Diabetes: Yes HTN: Yes Hypercholesterolemia: Yes - Surgical History Cholecystectomy: Yes - Immunization History Immunization Up to Date: Yes - Suicide/Smoking/Psychosocial Hx Smoking History: Never smoked Have you smoked in the past 12 months: No Hx Alcohol Use: No Drug/Substance Use Hx: No Substance Use Type: None <Lance Schroeder - Last Filed: 08/15/18 06:13> - Past Medical History Allergies/Adverse Reactions: Allergies Allergy/AdvReac Type Severity Reaction Status Date / Time No Known Allergies Allergy Verified 08/14/18 19:58 Home Medications: Ambulatory Orders Losartan Potassium 100 mg PO DAILY 06/13/15 Aspirin [Aspirin EC] 81 mg PO DAILY 07/01/18 Famotidine [Pepcid] 40 mg PO DAILY 07/01/18 Repaglinide [Prandin -] 1 mg PO TID 07/01/18 Simethicone [Gas Relief] 125 mg PO QID 07/01/18 Amlodipine Besylate [Norvasc -] 10 mg PO DAILY #30 tablet 07/02/18 Carvedilol [Coreg -] 3.125 mg PO BID #60 tablet 07/02/18 Chlorthalidone 25 mg PO QID 08/15/18 Metoprolol Tartrate 08/15/18 Metoprolol Tartrate 25 mg PO QID 08/15/18 Nortriptyline HCl [Pamelor -] 10 mg PO BID 08/15/18 Oxybutynin Chloride 5 mg PO BID 08/15/18 Pantoprazole Sodium [Protonix] 40 mg PO QID 08/15/18 Pregabalin [Lyrica -] 50 mg PO TID 08/15/18 Review of Systems - Review of Systems Able to Perform ROS?: Yes Comments:: GENERAL/CONSTITUTIONAL: No fever or chills HEAD, EYES, EARS, NOSE AND THROAT: No change in vision. No ear pain or discharge. No sore throat CARDIOVASCULAR: No chest pain or shortness of breath RESPIRATORY: Denies cough, hemoptysis GASTROINTESTINAL: No nausea, vomiting, diarrhea or constipation GENITOURINARY: No dysuria, frequency, or change in urination MUSCULOSKELETAL: No joint or muscle swelling or pain. No neck or back pain SKIN: No rash NEUROLOGIC: No vertigo, loss of consciousness, or change in strength/sensation ENDOCRINE: No increased thirst. No abnormal weight change HEMATOLOGIC/LYMPHATIC: No anemia, easy bleeding, or history of blood clots ALLERGIC/IMMUNOLOGIC: No hives or skin allergy 08/14/18 19:46 Is the patient limited Icelandic proficient: No <Lance Schroeder - Last Filed: 08/15/18 06:13> *Physical Exam - Vital Signs Last Vital Signs Temp Pulse Resp BP Pulse Ox 97.0 F L 67 18 132/72 97 08/14/18 19:58 08/14/18 19:58 08/14/18 19:58 08/14/18 22:18 08/14/18 19:58 <Lindy Hauser - Last Filed: 08/15/18 01:59> - Vital Signs Vital Signs Temp Pulse Resp BP Pulse Ox 97.0 F L 67 18 153/77 97 08/14/18 19:58 08/14/18 19:58 08/14/18 19:58 08/14/18 19:58 08/14/18 19:58 08/14/18 20:03 - Physical Exam Comments: GENERAL: Awake, alert, and fully oriented, in no acute distress HEAD: No signs of trauma, normocephalic, atraumatic EYES: PERRLA, EOMI, sclera anicteric, conjunctiva clear ENT: Hearing grossly normal, nares patent, oropharynx clear without exudates. Moist mucosa LUNGS: No distress, speaks full sentences, clear to auscultation bilaterally HEART: Regular rate and rhythm, normal S1 and S2, no murmurs appreciated, peripheral pulses normal and equal bilaterally ABDOMEN: Soft, nontender, normoactive bowel sounds. No guarding, no rebound EXTREMITIES : Normal inspection, Normal range of motion, no edema. No clubbing or cyanosis NEUROLOGICAL: Cranial nerves II through XII grossly intact. Normal speech, no focal sensorimotor deficits SKIN: Warm, Dry 08/14/18 19:46 <Lance Schroeder - Last Filed: 08/15/18 06:13> Moderate Sedation - Procedure Monitoring Vital Signs: Procedure Monitoring Vital Signs Temperature 97.0 F L 08/14/18 19:58 Pulse Rate 67 08/14/18 19:58 Respiratory Rate 18 08/14/18 19:58 Blood Pressure 132/72 08/14/18 22:18 O2 Sat by Pulse Oximetry (%) 97 08/14/18 19:58 <Lindy Hauser - Last Filed: 08/15/18 01:59> ED Treatment Course - LABORATORY CBC & Chemistry Diagram: 08/14/18 20:40 08/14/18 20:40 - ADDITIONAL ORDERS Additional order review: Laboratory Results 08/14/18 08/14/18 20:40 16:40 Sodium 138 Potassium 4.3 Chloride 105 Carbon Dioxide 29 Anion Gap 4 L BUN 36 H Creatinine 1.8 H Creat Clearance w eGFR 27.82 Random Glucose 221 H Calcium 9.0 Total Bilirubin 0.2 AST 25 ALT 27 Alkaline Phosphatase 123 H Creatine Kinase 272 H Creatine Kinase Index 0.7 CK-MB (CK-2) 2.0 Troponin I < 0.02 Total Protein 7.3 Albumin 3.4 Urine Color Straw Urine Appearance Clear Urine pH 8.0 Ur Specific [place] 1.010 Urine Protein Negative Urine Glucose (UA) 1+ H Urine Ketones Negative Urine Blood Negative Urine Nitrite Negative Urine Bilirubin Negative Urine Urobilinogen Negative Ur Leukocyte Esterase Negative 08/14/18 20:40 RBC 4.33 MCV 85.2 MCHC 34.9 RDW 16.1 H MPV 9.7 - Medications Given in the ED: ED Medications Discontinued Medications Generic Name Dose Route Start Last Admin Trade Name Freq PRN Reason Stop Dose Admin Acetaminophen 975 mg 08/14/18 20:05 08/14/18 20:38 Tylenol - PO 08/14/18 20:06 975 mg ONCE ONE Administration Sodium Chloride 1,000 ml 08/14/18 22:18 08/14/18 22:19 Normal Saline - IV 08/14/18 22:19 1,000 ml ONCE ONE Administration <Lindy Hauser - Last Filed: 08/15/18 01:59> - LABORATORY CBC & Chemistry Diagram: 08/14/18 20:40 08/14/18 20:40 <Lance Schroeder - Last Filed: 08/15/18 06:13> Medical Decision Making - Medical Decision Making The pt is a 68F w/ a history of HTN, T2DM, HLD, cholecystectomy, and RILEY who presents for evaluation of generalized weakness/lightheadedness ED Course CMP, CBC, Cardiac enzymes, UA CXR ECG 08/14/18 20:04 The patient reports that her symptoms are improving. She does not feel lightheaded at this time. 08/14/18 20:21 No leukocytosis No anemia 08/14/18 21:00 Lytes wnl MATTHEW: Cr 1.8, baseline 1.2 LFTs wnl CXR w/o acute pathology 08/14/18 21:29 Patient now endorsing vision black out earlier but continues to deny fall or LOC. Patient initially denied vision changes or blurry vision. -Head CT ordered 08/14/18 23:33 CT Head w/o acute pathology Patient admitted to [facility] obs <Lance Schroeder - Last Filed: 08/15/18 06:13> *DC/Admit/Observation/Transfer - Discharge Dispostion Decision to Admit order: Yes <Lindy Hauser - Last Filed: 08/15/18 01:59> - Discharge Dispostion Decision to Admit order: Yes <Lance Schroeder - Last Filed: 08/15/18 06:13> Diagnosis at time of Disposition: Lightheaded, MATTHEW (acute kidney injury), Orthostatic hypotension - Discharge Dispostion Condition at time of disposition: Fair
--- NOTE | 2018-08-14 19:52 | PDOC ---
Attending Attestation - HPI HPI: 08/14/18 20:24 The patient is a 68 year old female with a PMH of HTN, HLD, T2DM, GERD, hysterectomy, and cholecystectomy who presents to the ER complaining of lightheadedness today. Patient states she was visiting her at [facility] when she began to experience the lightheadedness. Patient states her blood glucose was in the 160s and her blood pressure was 100s/60s in [facility]. She was recently prescribed hydrochlorothiazide. Patient is also complaining of a diffuse headache here in the ED. Patient's blood pressure in the ER is 153/77. Patient denies palpitations, chest pain, shortness of breath, fever, chills, nausea, vomiting, diaphoresis, urinary symptoms, diarrhea, or constipation. Allergies: NKA Past surgical history: hysterectomy, cholecystectomy. Social history: No reported alcohol, drug or cigarette use. - Physicial Exam PE: 08/14/18 21:22 ADULT PHYSICAL EXAM Constitutional: Awake, alert, oriented. No acute distress. Cardiovascular: Regular rate. Regular rhythm. S1, S2 regular. Distal pulses are 2+ and symmetric. Pulmonary/Chest: No evidence of respiratory distress. Clear to auscultation bilaterally No wheezing, rales or rhonchi. Abdominal: Soft and non-distended. There is no tenderness. No rebound, guarding or rigidity. No organomegaly. No palpable masses. Good bowel sounds. Musculoskeletal: No edema. No cyanosis. No clubbing. Full range of motion in all extremities. No calf tenderness. Radial/pedal pulses are intact and 2+ bilaterally Skin: Skin is warm and dry. No petechiae. No purpura. Neurological: Alert and oriented to person, place, and time. Cranial nerves II -XII are grossly intact. Normal speech. Strength is grossly symmetric. No sensory deficits. Psychiatric: Good eye contact. Normal interaction, affect and behavior. - Medical Decision Making 08/15/18 01:47 Imaging: Head CT Findings: 1. Minimal atrophy with small vessel periventricular ischemic changes. 2. Negative for intracranial bleed, mass or mass effect. Reported by: Dr. Navarro <Kimberli Nunez - Last Filed: 08/15/18 01:47> - Resident Resident Name: Lance Schroeder - ED Attending Attestation I have performed the following: I have examined & evaluated the patient, The case was reviewed & discussed with the resident, I agree w/resident's findings & plan, Exceptions are as noted - Medical Decision Making 08/14/18 19:52 I, Dr. Lindy Hauser, DO, attest that this document has been prepared under my direction and personally reviewed by me in its entirety. I further attest, that it accurately reflects all work, treatment, procedures and medical decision -making performed by me. 08/14/18 22:15 a/p: 68yo female with an episode of weakness and lightheaded earlier today -bp was 100 systolic during the episode -recently started on HCTZ -will send labs, ekg, cxr -will monior and ivf hydrate -will check orthostatics -states feeling better upon arrival in ED 08/14/18 22:18 pt orthostatic on exam mildly elevated bun/cr - will hydrate, repeat orthostatics and chem -will continue to monitor and reassess 08/14/18 23:37 daughter calls and said her mother lost vision for a few seconds at [place] -pt initially denied this complaint to us upon initial evaluation denied blurred vision or change in vision or loss of vision will obtain head ct neuro intact no focal findings upon arrival of on re-eval 08/15/18 01:[address] Anna who accepts pt to service <Lindy Hauser - Last Filed: 08/15/18 01:59> Heart Score/ECG Review - ECG Intrepretation Comment:: 08/14/18 22:16 sinus gunnar at 52, nl axis, nl interval, t wave inversions v5-6, I/avl - unchanged from prior <Lindy Hauser - Last Filed: 08/15/18 01:59>
[2018-08-14] MEDS ORDERED: ACETAMINOPHEN 325 MG TABLET (FP) PO ONE (20:05)
[2018-08-14 20:28] VITALS: BMI 27.4
[2018-08-14] MEDS ORDERED: ACETAMINOPHEN 325 MG TABLET (FP) ONE (20:43)
[2018-08-14 20:58] LABS: HEMATOCRIT 36.9 % (32.4-45.2); HEMOGLOBIN 12.9 GM/dL (10.7-15.3); MCH 29.7 pg (25.7-33.7); MCHC 34.9 g/dl (32.0-36.0); MEAN CELL VOLUME 85.2 fl (80-96); MEAN PLT VOLUME 9.7 fl (7.5-11.1); PLATELET COUNT 210 K/MM3 (134-434); RBC 4.33 M/mm3 (3.60-5.2); RDW 16.1 % (11.6-15.6); WHITE BLOOD COUNT 5.6 K/mm3 (4.0-10.0)
[2018-08-14 21:25] LABS: ALBUMIN 3.4 g/dl (3.4-5.0); ALK PHOS 123 U/L (45-117); ANION GAP 4 MMOL/L (8-16); BILIRUBIN,TOTAL 0.2 mg/dL (0.2-1); BLOOD UREA NITROGEN 36 mg/dL (7-18); CHLORIDE 105 mmol/L (98-107); CO2 29 mmol/L (21-32); CREATININE 1.8 mg/dL (0.55-1.3); GLUCOSE,RANDOM 221 mg/dL (74-106); POTASSIUM 4.3 mmol/L (3.5-5.1); SGOT/AST 25 U/L (15-37); SGPT/ALT 27 U/L (13-61); SODIUM 138 mmol/L (136-145); TOT PROT 7.3 g/dl (6.4-8.2)
[2018-08-14] MEDS ORDERED: SODIUM CHLORIDE 0.9% 500 ML INFUS.BAG IV ONE (22:18)
[2018-08-14 22:26] LABS: URINE APPEARANCE CLEAR; URINE BILIRUBIN NEGATIVE (<2.0 mg/dL); URINE COLOR STRAW; URINE GLUCOSE (UA) 1+ (NEGATIVE); URINE KETONE NEGATIVE (NEGATIVE); URINE LEUK ESTERASE NEGATIVE (NEGATIVE); URINE NITRITE NEGATIVE (NEGATIVE); URINE PROTEIN NEGATIVE (NEGATIVE); URINE UROBILINOGEN NEGATIVE mg/dL (0.2-1.0)
[2018-08-15] MEDS: SODIUM CHLORIDE 1,000 ML IV SCH (03:33)
--- NOTE | 2018-08-15 03:33 | HP ---
CHIEF COMPLAINT: weakness/hypotension PCP: HISTORY OF PRESENT ILLNESS: 68 y/o female with PMH of HTN, CAD, DM, GERD, who was sent in from [facility] , while she was seeing her when she had an episode of dizziness and her vision went black for about 10 minutes. She states that she was feeding her lunch when she all of the sudden had to sit down, felt dizzy and then her vision went black for about 10 minutes. This has never happened to her- she thought her blood sugar might have been low. She had her husbands nurse take her BP and it was 100/43 which is very low for her- she usually runs quite high. She felt that she thought she would have passed out if she wasn't sitting down. Of note, she was started on Chlorthalidone last weekend by Dr. Mariscal. She denies any recent travel or illnesses; no chest pain or trouble breathing. ER course was notable for: (1) BP on arrival was 153/77; negative orthostatics (2)Cr 1.8; elevated from baseline (3)head CT negative Recent Travel: denies PAST MEDICAL HISTORY: see above PAST SURGICAL HISTORY: hysterectomy; cholecystectomy Social History: Smoking:denies Alcohol:denies Drugs: denies Family History: Allergies No Known Allergies Allergy (Verified 08/14/18 19:58) HOME MEDICATIONS: Home Medications Medication Instructions Recorded Losartan Potassium 100 mg PO DAILY 06/13/15 Aspirin [Aspirin EC] 81 mg PO DAILY 07/01/18 Famotidine [Pepcid] 40 mg PO DAILY 07/01/18 Repaglinide [Prandin -] 1 mg PO TID 07/01/18 Simethicone [Gas Relief] 125 mg PO QID 07/01/18 Amlodipine Besylate [Norvasc -] 10 mg PO DAILY #30 tablet 07/02/18 Carvedilol [Coreg -] 3.125 mg PO BID #60 tablet 07/02/18 REVIEW OF SYSTEMS CONSTITUTIONAL: Absent: fever, chills, diaphoresis, generalized weakness, malaise, loss of appetite, weight change HEENT: Absent: rhinorrhea, nasal congestion, throat pain, throat swelling, difficulty swallowing, mouth swelling, ear pain, eye pain, visual changes CARDIOVASCULAR: Absent: chest pain, syncope, palpitations, irregular heart rate, lightheadedness , peripheral edema RESPIRATORY: Absent: cough, shortness of breath, dyspnea with exertion, orthopnea, wheezing, stridor, hemoptysis GASTROINTESTINAL: Absent: abdominal pain, abdominal distension, nausea, vomiting, diarrhea, constipation, melena, hematochezia GENITOURINARY: Absent: dysuria, frequency, urgency, hesitancy, hematuria, flank pain, genital pain MUSCULOSKELETAL: Absent: myalgia, arthralgia, joint swelling, back pain, neck pain SKIN: Absent: rash, itching, pallor HEMATOLOGIC/IMMUNOLOGIC: Absent: easy bleeding, easy bruising, lymphadenopathy, frequent infections ENDOCRINE: Absent: unexplained weight gain, unexplained weight loss, heat intolerance, cold intolerance NEUROLOGIC: Present: dizziness Absent: headache, focal weakness or paresthesias, unsteady gait, seizure, mental status changes, bladder or bowel incontinence PSYCHIATRIC: Absent: anxiety, depression, suicidal or homicidal ideation, hallucinations. PHYSICAL EXAMINATION Vital Signs - 24 hr 08/14/18 08/14/18 08/14/18 19:36 19:58 22:18 Temperature 97.0 F L Pulse Rate 67 67 Respiratory 18 18 Rate Blood Pressure 153/77 Blood Pressure 106/58 L [Left side Standing] Blood Pressure 132/72 [Left side Supine] O2 Sat by Pulse 97 97 Oximetry (%) GENERAL: Awake, alert, and fully oriented, in no acute distress. EYES: EOMI; PEERLA; no scleral icterus NECK: no JVD; no lymphadenopathy LUNGS: CTA B/L; no rales, rhonchi or wheezing HEART: Regular rate and rhythm, normal S1 and S2 without murmur, rub or gallop. ABDOMEN: Soft, nontender, not distended, normoactive bowel sounds, no guarding, no rebound, no masses. No hepatomegaly or splenomegaly. MUSCULOSKELETAL: Normal range of motion at all joints. No bony deformities or tenderness. No CVA tenderness. EXTREMITIES: warm; well-perfused; no clubbing./cyanosis or edema NEUROLOGICAL: Cranial nerves II-XII intact. Normal speech. Normal gait. strength 5/5 B/L in upper and lower extremities; sensation/temperature intact B/ L PSYCHIATRIC: Cooperative. Good eye contact. Appropriate mood and affect. SKIN: Warm, dry, normal turgor, no rashes or lesions noted, normal capillary refill. Laboratory Results - last 24 hr 08/14/18 08/14/18 08/14/18 16:40 20:40 20:40 WBC 5.6 RBC 4.33 Hgb 12.9 Hct 36.9 MCV 85.2 MCH 29.7 MCHC 34.9 RDW 16.1 H Plt Count 210 MPV 9.7 Sodium 138 Potassium 4.3 Chloride 105 Carbon Dioxide 29 Anion Gap 4 L BUN 36 H Creatinine 1.8 H Creat Clearance w eGFR 27.82 Random Glucose 221 H Calcium 9.0 Total Bilirubin 0.2 AST 25 ALT 27 Alkaline Phosphatase 123 H Creatine Kinase 272 H Creatine Kinase Index 0.7 CK-MB (CK-2) 2.0 Troponin I < 0.02 Total Protein 7.3 Albumin 3.4 Urine Color Straw Urine Appearance Clear Urine pH 8.0 Ur Specific [place] 1.010 Urine Protein Negative Urine Glucose (UA) 1+ H Urine Ketones Negative Urine Blood Negative Urine Nitrite Negative Urine Bilirubin Negative Urine Urobilinogen Negative Ur Leukocyte Esterase Negative ASSESSMENT/PLAN: 68 y/o female with PMH of HTN, GERD, DM who presents after having a near- syncopal episode while visiting her at his [facility], found to have a BP of 100/43. 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 mariscal in AM #DM -ISS -BGMS ACHS F/E/N NS @75mls/hr monitor electrolytes diabetic diet Visit type - Emergency Visit Emergency Visit: Yes ED Registration Date: 08/15/18 Care time: The patient presented to the Emergency Department on the above date and was hospitalized for further evaluation of their emergent condition. - New Patient This patient is new to me today: Yes Date on this admission: 08/15/18 - Critical Care Critical Care patient: No
--- NOTE | 2018-08-15 04:41 | PN ---
Teaching Attending Note Name of Resident: Tami Rudolph ATTENDING PHYSICIAN STATEMENT I saw and evaluated the patient. I reviewed the resident's note and discussed the case with the resident. I agree with the resident's findings and plan as documented. SUBJECTIVE: Seen and examined; please see resident note for further historical details. Briefly, this is a 68 y/o female with a PMH as documented who presents to the ER with a CC of syncope. She had an episode when visiting her at his facility that consisted of dizziness and a "blackout" for several minutes. Unclear LOC. Her fsg was wnl and her BP was slightly lower than it normally is (100s, she states she normally runs higher). She was recently started on chlorthalidone. She follows with Dr. Mariscal. Negative OS VS in the ER per our assessment but am told was positive on presentation (she got 1L fluid in between). MATTHEW seen in the ER with Cr 1.8. 10 sys ROS done and negative aside from HPI PMH reviewed; PSH reviewed; Social hx and family hx reviewed Medication reconciliation pending OBJECTIVE: VS, labs, and imaging available NAD, AAO, resting comfortably in bed. RRR s1/2 no mgr Lungs CTAB, w/ sym exp NT ND +BS CN2-12 wnl, no fnd Normal mood, blunted affect EKG reviewed Images reviewed; awaiting final read Prior echo reviewed from 06/2018 Stress test 06/2018 reviewed ASSESSMENT AND PLAN: Patient presents with syncope and is found to have an MATTHEW; recently started chlorthaladone 1) Syncope -Etiology likely 2/2 orthostatic hypotension. -Recheck OS VS in the AM; holding BP meds for now as they were both nephrotoxic. Consulting her CV for med adjustments as she was just started on the chlorthaladone. Reviewed old echo. Further testing per cardiology. Appreciate expert opinion. 2) MATTHEW -Likely due to diuretic use; history endorses prerenal. Hydrating overnight. Monitor BMP and UOP. -Hydrating empirically and holding nephrotoxic meds. If worsens obtain further urine studies, JENNIFER, and consult nephrology 3) HTN -Holding meds; restart when clinically appropriate. 4) DM -SSI; hold PO meds 5) GERD -Continue home medications
[2018-08-15] MEDS: HEPARIN NA (PORCINE) 5,000 UNITS/ML 1ML VIAL SQ SCH ×3 (06:09→22:29)
[2018-08-15 07:01] LABS: BASO % 0.4 % (0-2.0); EOS % 3.4 % (0-4.5); HEMATOCRIT 35.4 % (32.4-45.2); HEMOGLOBIN 12.2 GM/dL (10.7-15.3); LYMPH % 33.6 % (8-40); MCH 28.9 pg (25.7-33.7); MCHC 34.3 g/dl (32.0-36.0); MEAN CELL VOLUME 84.3 fl (80-96); MEAN PLT VOLUME 9.9 fl (7.5-11.1); MONO % 7.2 % (3.8-10.2); NEUT % 55.4 % (42.8-82.8); PLATELET COUNT 195 K/MM3 (134-434); RDW 16.2 % (11.6-15.6); WHITE BLOOD COUNT 4.9 K/mm3 (4.0-10.0)
[2018-08-15 07:41] LABS: ALK PHOS 112 U/L (45-117); ANION GAP 5 MMOL/L (8-16); BILIRUBIN,TOTAL 0.4 mg/dL (0.2-1); BLOOD UREA NITROGEN 27 mg/dL (7-18); CHLORIDE 108 mmol/L (98-107); CO2 27 mmol/L (21-32); CREATININE 1.4 mg/dL (0.55-1.3); GLUCOSE,RANDOM 153 mg/dL (74-106); MAGNESIUM 2.8 mg/dL (1.8-2.4); PHOSPHOROUS 2.6 mg/dL (2.5-4.9); POTASSIUM 3.8 mmol/L (3.5-5.1); SGOT/AST 22 U/L (15-37); SGPT/ALT 25 U/L (13-61); SODIUM 140 mmol/L (136-145); TOT PROT 6.7 g/dl (6.4-8.2)
[2018-08-15] MEDS: INSULIN SLIDING SCALE (NOVOLOG) 1 VIAL SQ SCH ×4 (07:47→22:30)
[2018-08-15] MEDS ORDERED: ASPIRIN COATED 81 MG TABLET.EC PO SCH (10:00)
[2018-08-15] MEDS ORDERED: METOPROLOL TARTRATE 25 MG TABLET (FP) PO SCH (10:00)
[2018-08-15] MEDS ORDERED: PT OWN MED DRAWER 7, Y5N ONE (10:28)
[2018-08-15] MEDS: amLODIPine BESYLATE 10 MG TABLET (FP) PO SCH (10:29)
[2018-08-15] MEDS: metoPROLOL SUCCINATE 25 MG TAB.SR.24H (FP) PO SCH (10:29)
[2018-08-15] MEDS: OXYBUTYNIN CHLORIDE 5 MG TABLET PO SCH ×2 (10:30→22:29)
[2018-08-15] MEDS: PANTOPRAZOLE 40 MG TABLET (FP) PO SCH (10:31)
--- NOTE | 2018-08-15 13:06 | PN ---
Teaching Attending Note Name of Resident: Shimon Garcia ATTENDING PHYSICIAN STATEMENT I saw and evaluated the patient. I reviewed the resident's note and discussed the case with the resident. I agree with the resident's findings and plan as documented. SUBJECTIVE: seen at 10 am in ER No fever or chills . No abd pain,No HOUGH , or PC . No SOB . She reports no LOC but felt as if everything was becoming black after she stood x 15 min feeding her . BP at time of event was 93/50 and sugar 222. she denies any sx at this time. She reports starting chlorothalidone a week ago and frequent urination. she reports no other change in meds. OBJECTIVE: NAD. Dry MM. No JVD. round equal pupils, reactive to light. No JVD. no facial droop CV: RRR, 2/6 SM at R upper sternal boarder with not radiation to carotids. Lungs: CTAB Abd: soft, NT, Nd , NL BS Ext : no edema , no erythema. ASSESSMENT AND PLAN: 68 y/o lady with h/o HTN, DM, GERD, CAD, s/p stenting who presented with near syncopal episode. 1- Near syncope: likely due to orthostatic hypotension in setting of MATTHEW, recent diuretic use, dry MM and skin. vasovagal is less likely. No suspicion for stroke, or hypoglycemia, ACS, or other etiologies. - IVF - hold chlorthalidone - tele 2- HTN: cont BB , CCB, and norvasc. hol dlosartan for MATTHEW and chlorthalidone. probably will not resume diuretics at dc 3- MATTHEW: due to volume depletion - IVF - hold losartan 4- dispo: possibly dc tomorrow depending on condition and labs
[2018-08-15] MEDS ORDERED: INSULIN (NOVOLOG) ASPART 100 UNITS/ML 10ML VIAL ONE (13:10)
--- NOTE | 2018-08-15 13:21 | EKG ---
Test Reason : Blood Pressure : / mmHG Vent. Rate : 052 BPM Atrial Rate : 052 BPM P-R Int : 134 ms QRS Dur : 092 ms QT Int : 450 ms P-R-T Axes : 066 025 110 degrees QTc Int : 418 ms SINUS BRADYCARDIA ABNORMAL ECG WHEN COMPARED WITH ECG OF 02-JUL-2018 08:09, VENT. RATE HAS DECREASED BY 28 BPM NONSPECIFIC T WAVE ABNORMALITY, IMPROVED IN INFERIOR LEADS Confirmed by DENISE HOLBROOK, IVELISSE ([id number]) on 08/15/2018 1:20:32 PM Referred By: Confirmed By:IVELISSE WALKER MD
--- NOTE | 2018-08-15 13:33 | CON.CARD ---
Consult Consult Specialty:: cardiology Referred by:: Shoshana Reason for Consultation:: Near syncope - History of Present Illness Chief Complaint: Dizziness History of Present Illness: The patient is a 68-year-old female, we've a history of diabetes, hypertension, hyperlipidemia, coronary artery disease, status post multiple prior stents, chronic kidney disease, normal left ventricular ejection fraction 06/24, now presenting with near syncope. The patient was found to be dehydrated and orthostatic. She improved with intravenous fluids. Renal function improved. She is currently comfortable and symptom free. The x-ray showed mild pulmonary congestion. The patient is breathing normally. Denies chest pains. No palpitations. - History Source History Provided By: Patient, Family Member, Medical Record Limitations to Obtaining History: Language Barrier - Past Medical History Cardio/Vascular: Yes: CAD, HTN, Hyperlipdemia Gastrointestinal: Yes: GERD - Alcohol/Substance Use Hx Alcohol Use: No - Smoking History Smoking history: Never smoked Have you smoked in the past 12 months: No - Social History Usual Living Arrangement: With Child ADL: Family Assistance History of Recent Travel: No Home Medications - Allergies Allergies/Adverse Reactions: Allergies Allergy/AdvReac Type Severity Reaction Status Date / Time No Known Allergies Allergy Verified 08/14/18 19:58 - Home Medications Home Medications: Ambulatory Orders Losartan Potassium 100 mg PO DAILY 06/13/15 Simethicone [Gas Relief] 125 mg PO QID 07/01/18 Amlodipine Besylate [Norvasc -] 10 mg PO DAILY #30 tablet 07/02/18 Carvedilol [Coreg -] 3.125 mg PO BID #60 tablet 07/02/18 Aspirin [Aspirin EC] 81 mg PO DAILY 08/15/18 Chlorthalidone 25 mg PO DAILY 08/15/18 Insulin NPH Human Isophane [Humulin N] 21 units SQ DAILY 08/15/18 Metoprolol Succinate 25 mg PO DAILY 08/15/18 Oxybutynin Chloride 5 mg PO BID 08/15/18 Pantoprazole Sodium [Protonix] 40 mg PO DAILY 08/15/18 Pregabalin [Lyrica -] 50 mg PO TID 08/15/18 Review of Systems - Review of Systems Constitutional: reports: No Symptoms Eyes: reports: No Symptoms HENT: reports: No Symptoms Neck: reports: No Symptoms Cardiovascular: reports: No Symptoms Respiratory: reports: No Symptoms Gastrointestinal: reports: No Symptoms Genitourinary: reports: No Symptoms Breasts: reports: No Symptoms Reported Musculoskeletal: reports: No Symptoms Integumentary: reports: No Symptoms Neurological: reports: No Symptoms Endocrine: reports: No Symptoms Hematology/Lymphatic: reports: No Symptoms Psychiatric: reports: No Symptoms Vital Signs: Vital Signs Temperature 97.5 F L 08/15/18 11:36 Pulse Rate 61 08/15/18 12:13 Respiratory Rate 17 08/15/18 12:13 Blood Pressure 159/79 08/15/18 12:13 O2 Sat by Pulse Oximetry (%) 99 08/15/18 12:13 Constitutional: Yes: Well Nourished, No Distress, Calm Eyes: Yes: WNL, Conjunctiva Clear, EOM Intact HENT: Yes: WNL, Atraumatic, Normocephalic Neck: Yes: WNL, Supple, Trachea Midline Respiratory: Yes: WNL, Regular, CTA Bilaterally Gastrointestinal: Yes: WNL, Normal Bowel Sounds, Soft Renal/: Yes: WNL, Anuria, Bladder Distention Cardiovascular: Yes: WNL, Regular Rate and Rhythm JVD: No Carotid Bruit: No PMI: Non-Displaced Heart Sounds: Yes: S1, S2 Murmur: Yes: Systolic Murmur, Grade 2 Musculoskeletal: Yes: WNL Extremities: Yes: WNL Edema: No Peripheral Pulses WNL: Yes Integumentary: Yes: WNL Neurological: Yes: WNL, Alert, Oriented ...Motor Strength: WNL - Other Data Labs, Other Data: CBC, BMP 08/15/18 05:30 08/15/18 05:30 Troponin, BNP 08/14/18 08/15/18 20:40 05:30 Troponin I < 0.02 < 0.02 Troponin, BNP 08/14/18 08/15/18 20:40 05:30 Troponin I < 0.02 < 0.02 Assessment/Plan The patient is a 68-year-old female, we've a history of diabetes, hypertension, hyperlipidemia, coronary artery disease, status post multiple prior stents, chronic kidney disease, normal left ventricular ejection fraction 06/24, now presenting with near syncope. The patient was found to be dehydrated and orthostatic. She improved with intravenous fluids. Renal function improved. She is currently comfortable and symptom free. The x-ray showed mild pulmonary congestion. The patient is breathing normally. Denies chest pains. No palpitations. There is no evidence of ischemia nor acute coronary syndrome. There is mild pulmonary congestion. The patient is breathing comfortably and reports no chest pains. The ECG showed sinus rhythm, left ventricular hypertrophy with repolarization of the mattress. There is no need for further cardiac workup at this point. Please arrange for an outpatient follow-up with . Please do not hesitate to call us PRN.
--- NOTE | 2018-08-15 14:03 | PN ---
Physical Exam: SUBJECTIVE: Patient seen and examined at bedside this morning. Patient is a 68 year old female with past medical history of HTN, CAD, DM, GERD , presented with dizziness, with her vision suddenly going black for a few minutes. She was at [facility] visiting her when she suddenly felt dizzy and blacked out. Her BP was taken by the nurse which was noted to be 100/43. Of note, patient was started on Chlorthalidone a week ago. This morning, patient is lying down comfortably. Denies any fever, chills, headache, dizziness, changes in vision, nausea, vomiting, chest pain, SOB, abdominal pain, diarrhea, urinary symptoms. OBJECTIVE: Vital Signs Period Temp Pulse Resp BP Sys/Gómez Pulse Ox Last 24 Hr 97.0 F-98.2 F 61-80 16-18 106-179/58-79 97-99 GENERAL: The patient is awake, alert, and fully oriented, in no acute distress. EYES: PERRLA, EOMI, sclera anicteric, conjunctiva clear. ENT: Ears normal, oropharynx clear without exudates, dry mucous membranes. NECK: Trachea midline, full range of motion, supple. LUNGS: Breath sounds equal, clear to auscultation bilaterally. HEART: Regular rate and rhythm, S1, S2 without murmur, rub or gallop. ABDOMEN: Soft, nontender, nondistended, normoactive bowel sounds. EXTREMITIES: 2+ pulses, warm, well-perfused, no edema. NEUROLOGICAL: AAOx3, Cranial nerves II through XII grossly intact. Motor strength 5/5, sensation intact. Normal speech, gait not observed. PSYCH: Normal mood, normal affect. SKIN: Warm, dry, normal turgor, no rashes or lesions noted Laboratory Results - last 24 hr 08/14/18 08/14/18 08/14/18 16:40 20:40 20:40 WBC 5.6 RBC 4.33 Hgb 12.9 Hct 36.9 MCV 85.2 MCH 29.7 MCHC 34.9 RDW 16.1 H Plt Count 210 MPV 9.7 Absolute Neuts (auto) Neutrophils % Lymphocytes % Monocytes % Eosinophils % Basophils % Nucleated RBC % Sodium 138 Potassium 4.3 Chloride 105 Carbon Dioxide 29 Anion Gap 4 L BUN 36 H Creatinine 1.8 H Creat Clearance w eGFR 27.82 POC Glucometer Random Glucose 221 H Calcium 9.0 Phosphorus Magnesium Total Bilirubin 0.2 AST 25 ALT 27 Alkaline Phosphatase 123 H Creatine Kinase 272 H Creatine Kinase Index 0.7 CK-MB (CK-2) 2.0 Troponin I < 0.02 Total Protein 7.3 Albumin 3.4 Urine Color Straw Urine Appearance Clear Urine pH 8.0 Ur Specific [place] 1.010 Urine Protein Negative Urine Glucose (UA) 1+ H Urine Ketones Negative Urine Blood Negative Urine Nitrite Negative Urine Bilirubin Negative Urine Urobilinogen Negative Ur Leukocyte Esterase Negative 08/15/18 08/15/18 08/15/18 05:30 05:30 07:34 WBC 4.9 RBC 4.20 Hgb 12.2 Hct 35.4 MCV 84.3 MCH 28.9 MCHC 34.3 RDW 16.2 H Plt Count 195 MPV 9.9 Absolute Neuts (auto) 2.7 Neutrophils % 55.4 D Lymphocytes % 33.6 D Monocytes % 7.2 Eosinophils % 3.4 D Basophils % 0.4 Nucleated RBC % 0 Sodium 140 Potassium 3.8 Chloride 108 H Carbon Dioxide 27 Anion Gap 5 L BUN 27 H Creatinine 1.4 H Creat Clearance w eGFR 37.18 POC Glucometer 157 Random Glucose 153 H Calcium 9.0 Phosphorus 2.6 Magnesium 2.8 H Total Bilirubin 0.4 AST 22 ALT 25 Alkaline Phosphatase 112 Creatine Kinase 215 H Creatine Kinase Index 0.7 CK-MB (CK-2) 1.6 Troponin I < 0.02 Total Protein 6.7 Albumin 3.0 L Urine Color Urine Appearance Urine pH Ur Specific [place] Urine Protein Urine Glucose (UA) Urine Ketones Urine Blood Urine Nitrite Urine Bilirubin Urine Urobilinogen Ur Leukocyte Esterase 08/15/18 11:23 WBC RBC Hgb Hct MCV MCH MCHC RDW Plt Count MPV Absolute Neuts (auto) Neutrophils % Lymphocytes % Monocytes % Eosinophils % Basophils % Nucleated RBC % Sodium Potassium Chloride Carbon Dioxide Anion Gap BUN Creatinine Creat Clearance w eGFR POC Glucometer 253 Random Glucose Calcium Phosphorus Magnesium Total Bilirubin AST ALT Alkaline Phosphatase Creatine Kinase Creatine Kinase Index CK-MB (CK-2) Troponin I Total Protein Albumin Urine Color Urine Appearance Urine pH Ur Specific [place] Urine Protein Urine Glucose (UA) Urine Ketones Urine Blood Urine Nitrite Urine Bilirubin Urine Urobilinogen Ur Leukocyte Esterase Active Medications Generic Name Dose Route Start Last Admin Trade Name Freq PRN Reason Stop Dose Admin Amlodipine Besylate 10 mg 08/15/18 10:00 08/15/18 10:29 Norvasc - PO 10 mg DAILY XI Administration Aspirin 81 mg 08/16/18 10:00 Ecotrin - PO DAILY XI Heparin Sodium (Porcine) 5,000 unit 08/15/18 06:00 08/15/18 06:09 Heparin - SQ 5,000 unit TID XI Administration Sodium Chloride 1,000 mls @ 75 mls/hr 08/15/18 03:30 08/15/18 03:33 Normal Saline - IV 75 mls/hr ASDIR XI Administration Insulin Aspart 1 vial 08/15/18 07:00 08/15/18 11:27 Novolog Vial Sliding Scale - SQ 6 unit ACHS XI Administration Protocol Metoprolol Succinate 25 mg 08/15/18 10:00 08/15/18 10:29 Toprol Xl - PO 25 mg DAILY XI Administration Oxybutynin Chloride 5 mg 08/15/18 10:00 08/15/18 10:30 Ditropan - PO 5 mg BID XI Administration Pantoprazole Sodium 40 mg 08/15/18 10:00 08/15/18 10:31 Protonix - PO 40 mg DAILY XI Administration Pregabalin 50 mg 08/15/18 14:00 Lyrica - PO TID XI Ranitidine HCl 300 mg 08/15/18 22:00 Zantac - PO HS [facility] ASSESSMENT/PLAN: Patient is a 68 year old female with past medical history of HTN, CAD, DM, GERD , presented with dizziness, with her vision suddenly going black for a few minutes. #Near Syncope likely 2/2 dehydration, recent diuretic use -Head CT - no acute intracranial pathology -Echo (07/02/18) - small area of mildly intense myocardial ischemia of the inferior lateral wall on stress nuclear image. -Hold chlorthalidone -Tele monitoring -Cardiology (Dr. Dela Cruz) consulted. Recommendations appreciated. -No need for further cardiac work-up -Follow up with Dr. Mariscal as outpatient. #MATTHEW -likely pre-renal 2/2 dehydration, diuretic use -Hold Losartan and Chlorthalidone -IV hydration #Hypertension -Continue Metoprolol 25mg daily -Amlodipine 10mg daily -Hold Losartan and chlorthalidone #DM -Insulin sliding scale -BGM ACHS #FEN -Iv NS @75cc/hr -Electrolytes wnl, routine bmp monitoring -Diabetic diet #Prophylaxis -Heparin 5000 units tid #Disposition -full code -tele obs Visit type - Emergency Visit Emergency Visit: Yes ED Registration Date: 08/15/18 Care time: The patient presented to the Emergency Department on the above date and was hospitalized for further evaluation of their emergent condition. - New Patient This patient is new to me today: No - Critical Care Critical Care patient: No
[2018-08-15] MEDS ORDERED: PREGABALIN 50 MG CAPSULE ONE (14:08)
[2018-08-15] MEDS ORDERED: HEPARIN NA (PORCINE) 5,000 UNITS/ML 1ML VIAL ONE (14:09)
[2018-08-15] MEDS: PREGABALIN 50 MG CAPSULE PO SCH ×2 (14:09→22:30)
[2018-08-15] MEDS ORDERED: RANITIDINE HCL 150 MG TABLET (FP) PO SCH (22:00)
[2018-08-16] MEDS: SODIUM CHLORIDE 1,000 ML IV SCH (04:08)
--- NOTE | 2018-08-16 04:18 | PN ---
Physical Exam: SUBJECTIVE: Patient seen and examined OBJECTIVE: Vital Signs Period Temp Pulse Resp BP Sys/Gómez Pulse Ox Last 24 Hr 97.5 F-98.2 F 55-80 16-20 127-179/60-79 95-99 GENERAL: The patient is awake, alert, and fully oriented, in no acute distress. EYES: PERRLA, EOMI, sclera anicteric, conjunctiva clear. ENT: Ears normal, oropharynx clear without exudates, dry mucous membranes. NECK: Trachea midline, full range of motion, supple. LUNGS: Breath sounds equal, clear to auscultation bilaterally. HEART: Regular rate and rhythm, S1, S2 without murmur, rub or gallop. ABDOMEN: Soft, nontender, nondistended, normoactive bowel sounds. EXTREMITIES: 2+ pulses, warm, well-perfused, no edema. NEUROLOGICAL: AAOx3, Cranial nerves II through XII grossly intact. Motor strength 5/5, sensation intact. Normal speech, gait not observed. PSYCH: Normal mood, normal affect. SKIN: Warm, dry, normal turgor, no rashes or lesions noted Laboratory Results - last 24 hr 08/15/18 08/15/18 08/15/18 05:30 05:30 07:34 WBC 4.9 RBC 4.20 Hgb 12.2 Hct 35.4 MCV 84.3 MCH 28.9 MCHC 34.3 RDW 16.2 H Plt Count 195 MPV 9.9 Absolute Neuts (auto) 2.7 Neutrophils % 55.4 D Lymphocytes % 33.6 D Monocytes % 7.2 Eosinophils % 3.4 D Basophils % 0.4 Nucleated RBC % 0 Sodium 140 Potassium 3.8 Chloride 108 H Carbon Dioxide 27 Anion Gap 5 L BUN 27 H Creatinine 1.4 H Creat Clearance w eGFR 37.18 POC Glucometer 157 Random Glucose 153 H Calcium 9.0 Phosphorus 2.6 Magnesium 2.8 H Total Bilirubin 0.4 AST 22 ALT 25 Alkaline Phosphatase 112 Creatine Kinase 215 H Creatine Kinase Index 0.7 CK-MB (CK-2) 1.6 Troponin I < 0.02 Total Protein 6.7 Albumin 3.0 L 08/15/18 08/15/18 08/15/18 11:23 16:12 22:28 WBC RBC Hgb Hct MCV MCH MCHC RDW Plt Count MPV Absolute Neuts (auto) Neutrophils % Lymphocytes % Monocytes % Eosinophils % Basophils % Nucleated RBC % Sodium Potassium Chloride Carbon Dioxide Anion Gap BUN Creatinine Creat Clearance w eGFR POC Glucometer 253 166 183 Random Glucose Calcium Phosphorus Magnesium Total Bilirubin AST ALT Alkaline Phosphatase Creatine Kinase Creatine Kinase Index CK-MB (CK-2) Troponin I Total Protein Albumin Active Medications Generic Name Dose Route Start Last Admin Trade Name Rohanq PRN Reason Stop Dose Admin Amlodipine Besylate 10 mg 08/15/18 10:00 08/15/18 10:29 Norvasc - PO 10 mg DAILY XI Administration Aspirin 81 mg 08/16/18 10:00 Ecotrin - PO DAILY XI Heparin Sodium (Porcine) 5,000 unit 08/15/18 06:00 08/15/18 22:29 Heparin - SQ 5,000 unit TID XI Administration Sodium Chloride 1,000 mls @ 75 mls/hr 08/15/18 03:30 08/16/18 04:08 Normal Saline - IV Not Given ASDIR XI Insulin Aspart 1 vial 08/15/18 07:00 08/15/18 22:30 Novolog Vial Sliding Scale - SQ 2 unit ACHS XI Administration Protocol Metoprolol Succinate 25 mg 08/15/18 10:00 08/15/18 10:29 Toprol Xl - PO 25 mg DAILY XI Administration Oxybutynin Chloride 5 mg 08/15/18 10:00 08/15/18 22:29 Ditropan - PO 5 mg BID XI Administration Pantoprazole Sodium 40 mg 08/15/18 10:00 08/15/18 10:31 Protonix - PO 40 mg DAILY XI Administration Pregabalin 50 mg 08/15/18 14:00 08/15/18 22:30 Lyrica - PO 50 mg TID XI Administration Ranitidine HCl 300 mg 08/15/18 22:00 08/15/18 22:29 Zantac - PO 300 mg HS XI Administration ASSESSMENT/PLAN: Patient is a 68 year old female with past medical history of HTN, CAD, DM, GERD , presented with dizziness, with her vision suddenly going black for a few minutes. #Near Syncope likely 2/2 dehydration, recent diuretic use -Head CT - no acute intracranial pathology -Echo (07/02/18) - small area of mildly intense myocardial ischemia of the inferior lateral wall on stress nuclear image. -Hold chlorthalidone -Tele monitoring -Cardiology (Dr. Dela Cruz) consulted. Recommendations appreciated. -No need for further cardiac work-up -Follow up with Dr. Mariscal as outpatient. #MATTHEW -likely pre-renal 2/2 dehydration, diuretic use -Hold Losartan and Chlorthalidone -IV hydration #Hypertension -Continue Metoprolol 25mg daily -Amlodipine 10mg daily -Hold Losartan and chlorthalidone #DM -Insulin sliding scale -BGM ACHS #FEN -Iv NS @75cc/hr -Electrolytes wnl, routine bmp monitoring -Diabetic diet #Prophylaxis -Heparin 5000 units tid #Disposition -full code -tele obs
[2018-08-16] MEDS: PREGABALIN 50 MG CAPSULE PO SCH ×2 (05:54→14:02)
[2018-08-16] MEDS: HEPARIN NA (PORCINE) 5,000 UNITS/ML 1ML VIAL SQ SCH ×2 (05:54→14:02)
[2018-08-16] MEDS: INSULIN SLIDING SCALE (NOVOLOG) 1 VIAL SQ SCH ×2 (06:18→12:24)
[2018-08-16] MEDS ORDERED: DOCUSATE SODIUM 100 MG CAPSULE (FP) PO ONE (08:32)
[2018-08-16 09:04] LABS: ANION GAP 8 MMOL/L (8-16); BLOOD UREA NITROGEN 18 mg/dL (7-18); CALCIUM 9.3 mg/dL (8.5-10.1); CHLORIDE 108 mmol/L (98-107); CO2 25 mmol/L (21-32); CREATININE 1.2 mg/dL (0.55-1.3); GLUCOSE,RANDOM 155 mg/dL (74-106); MAGNESIUM 2.1 mg/dL (1.8-2.4); PHOSPHOROUS 2.7 mg/dL (2.5-4.9); POTASSIUM 3.9 mmol/L (3.5-5.1); SODIUM 141 mmol/L (136-145)
[2018-08-16] MEDS: metoPROLOL SUCCINATE 25 MG TAB.SR.24H (FP) PO SCH (09:29)
[2018-08-16] MEDS: amLODIPine BESYLATE 10 MG TABLET (FP) PO SCH (09:29)
[2018-08-16] MEDS: PANTOPRAZOLE 40 MG TABLET (FP) PO SCH (09:30)
[2018-08-16] MEDS: OXYBUTYNIN CHLORIDE 5 MG TABLET PO SCH (09:30)
[2018-08-16] MEDS ORDERED: ACETAMINOPHEN 325 MG TABLET (FP) PO PRN (09:32)
[2018-08-16] MEDS ORDERED: POLYETHYLENE GLYCOL 3350 119 GM BTL PO SCH (10:00)
[2018-08-16] MEDS ORDERED: ASPIRIN COATED 81 MG TABLET.EC PO SCH (10:00)
--- NOTE | 2018-08-16 11:21 | PN ---
Teaching Attending Note Name of Resident: David Bhardwaj ATTENDING PHYSICIAN STATEMENT I saw and evaluated the patient. I reviewed the resident's note and discussed the case with the resident. I agree with the resident's findings and plan as documented. SUBJECTIVE: No fever or chills. No abd pain. No HOUGH , no light headedness. OBJECTIVE: NAD. MMM CV: RRR, 2/6 SM at R upper sternal boarder with not radiation to carotids. Lungs: CTAB Abd: soft, NT, Nd , NL BS Ext : no edema , no erythema. ASSESSMENT AND PLAN: 68 y/o lady with h/o HTN, DM, GERD, CAD, s/p stenting who presented with near syncopal episode. 1- Near syncope: likely due to orthostatic hypotension. did not recur after hydration will dc IVF will not resume chlorthalidone at dc 2- HTN: cont BB, CCB, and norvasc. resume losartan not diuretics 3- MATTHEW: due to volume depletion resolved 4- dispo: DC home today. did well with PT. has 2 aids at home. she declined VNS.
--- NOTE | 2018-08-16 11:55 | DS ---
Physical Exam: SUBJECTIVE: Patient seen and examined at bed side, no acute events over night , was siting in the bed this AM having breakfast , deneis any dizziness, lightheadedness, N/V/D?/C , walk well with PT will be Dc home . pt reports that she is having aid at home and no need for visiting nurse. OBJECTIVE: Vital Signs Period Temp Pulse Resp BP Sys/Gómez Pulse Ox Last 24 Hr 97.5 F-98.2 F 55-80 17-20 127-159/60-79 95-99 PHYSICAL EXAM GENERAL: AAOx3 in AND HEAD: NC/AT EYES: PERRL, extraocular movements intact, ENT: Ears normal, nares patent, oropharynx clear without exudates, moist mucous membranes. NECK: Trachea midline, full range of motion, supple. LUNGS: Breath sounds equal, clear to auscultation bilaterally, no wheezes, no crackles, no accessory muscle use. HEART: Regular rate and rhythm, S1, S2 2/6 systolic murmur RUSB ,no rub or gallop. ABDOMEN: Soft, nontender, nondistended, normoactive bowel sounds, no guarding, no rebound, vertical surgical scar in mid lower abdomen NEUROLOGICAL: Cranial nerves II through XII grossly intact.normal gait PSYCH: Normal mood, normal affect. SKIN: Warm, dry, normal turgor, LABS Laboratory Results - last 24 hr 08/15/18 08/15/18 08/16/18 16:12 22:28 05:53 Sodium Potassium Chloride Carbon Dioxide Anion Gap BUN Creatinine Creat Clearance w eGFR POC Glucometer 166 183 149 Random Glucose Calcium Phosphorus Magnesium 08/16/18 06:45 Sodium 141 Potassium 3.9 Chloride 108 H Carbon Dioxide 25 Anion Gap 8 BUN 18 Creatinine 1.2 Creat Clearance w eGFR 44.41 POC Glucometer Random Glucose 155 H Calcium 9.3 Phosphorus 2.7 Magnesium 2.1 CBC, BMP 08/15/18 05:30 08/16/18 06:45 HOSPITAL COURSE: Date of Admission:08/15/18 Date of Discharge: 08/16/18 is a 68 y/o lady with h/o HTN, DM, GERD, CAD, s/p stenting who presented with near syncopal episode. likely due to orthostatic hypotension. treated with IV fluids and we dc chlorthalidone , pt improved and he did not have any other episode after hydration.Head Ct scan negative for acute pathology. for HTN she can resume cont metoprolol succinate 25 mg po daily , CCB, and norvasc 10 mg po daily. resume losartan and dc diuretics. pt has mild MATTHEW likely due to volum depletion as improved with hydration pt will be discharged home with miralx and senna as well as needed for constipation. she can resume al other home meds. Minutes to complete discharge: 45 Discharge Summary Reason For Visit: ACUTE KIDNEY INJURY LIGHTHEADEDNESS ORTHOSTATIC HY Current Active Problems Coronary artery disease (Chronic) HTN (hypertension) (Chronic) IDDM (insulin dependent diabetes mellitus) (Chronic) Condition: Improved - Instructions Diet, Activity, Other Instructions: Your visit You were admitted to the hospital because you got weak and almost passed out. Your blood pressure was noted to be low before you came to the ED. CAT scan of the head was negative of any concerns. Medications Here is a list of your blood pressure medications. Please take them as prescribed: 1. Amlodipine 10mg daily 2. Metoprolol ER 25 mg daily. 3. Losartan 100mg daily. 4- coreg 3.25 twice a day Please STOP taking the following medications. 1. Chlorthalidone 25mg daily. Continue your other home medications. Please keep your self hydrated and avoid any diuretic medicine Please take your time when you get out of bed to avoid any dizziness or light headedness. Please use senna or miralax as need to help you have daily bowel movement. increase vegetable portion and walk 30 min daily to help moving your bowel. Follow-up -Please follow-up with the railroad signal technician (Dr. Mariscal) within 1 week. -Follow-up with your primary care doctor within 1 week. Please call the chief medical technologist clinic at [phone] at [facility] to schedule an appointment with Dr. Samra Stein. Additional info -Call 911 or go to the ED if with any worsening fever,chills, chest pain, shortness of breath, headache, dizziness, light headedness, nausea, vomiting, abdominal pain, diarrhea or any new concerns noted. Referrals: [facility] [Provider Group] - 1 Week Adarsh Mariscal MD [Staff Physician] - 1 Week Disposition: HOME - Home Medications Comprehensive Discharge Medication List: Ambulatory Orders Losartan Potassium 100 mg PO DAILY 06/13/15 Simethicone [Gas Relief] 125 mg PO QID 07/01/18 Amlodipine Besylate [Norvasc -] 10 mg PO DAILY #30 tablet 07/02/18 Carvedilol [Coreg -] 3.125 mg PO BID #60 tablet 07/02/18 Aspirin [Aspirin EC] 81 mg PO DAILY 08/15/18 Insulin NPH Human Isophane [Humulin N] 21 units SQ DAILY 08/15/18 Metoprolol Succinate 25 mg PO DAILY 08/15/18 Oxybutynin Chloride 5 mg PO BID 08/15/18 Pantoprazole Sodium [Protonix] 40 mg PO DAILY 08/15/18 Pregabalin [Lyrica -] 50 mg PO TID 08/15/18 Acetaminophen [Tylenol .Regular Strength -] 325 mg PO Q6H PRN tablet 08/16/18 Polyethylene Glycol 3350 [Miralax (For Daily Use) -] 17 gm PO DAILY PRN #1 bottle 08/16/18 Sennosides/Docusate Sodium [Pericolace -] 2 tablet PO HS #30 tablet 08/16/18 This patient is new to me today: Yes Date on this admission: 08/16/18 Emergency Visit: Yes ED Registration Date: 08/15/18 Care time: The patient presented to the Emergency Department on the above date and was hospitalized for further evaluation of their emergent condition. Critical Care patient: No - Discharge Referral Referred to [facility] No
[2018-08-16] MEDS ORDERED: PT OWN MED DRAWER 7, Y5N ONE (12:01)
[2018-08-16 15:00] VITALS: BP 148/69; PULSE 65; TEMP 97.4
[2018-08-16] MEDS ORDERED: SENNOSIDES/DOCUSATE COMBO (SENNA PLUS) TABLET (UD) PO SCH (22:00)
== END 2018-08-16 15:20 | disposition home health service (06) ==
LOC: JER 19:36 → JERBED 08-15 02:00 → J4S 08-15 15:27
PROVIDERS: ADMIT Internal Medicine; ATTEND Internal Medicine
PROC: 3E0337Z Introduction of Electrolytic and Water Balance Substance into Peripheral Vein, Percutaneous Approach (ICD-10-PCS; principal; 2018-08-15)
PROC: 3E013VG Introduction of Insulin into Subcutaneous Tissue, Percutaneous Approach (ICD-10-PCS; 2018-08-15)
PROC: 3E013GC Introduction of Other Therapeutic Substance into Subcutaneous Tissue, Percutaneous Approach (ICD-10-PCS; 2018-08-15)
DX: R55 Syncope and collapse (principal); R42 Dizziness and giddiness; E11.22 Type 2 diabetes mellitus with diabetic chronic kidney disease; I12.9 Hypertensive chronic kidney disease with stage 1 through stage 4 chronic kidney disease, or unspecified chronic kidney disease; N18.9 Chronic kidney disease, unspecified; N17.9 Acute kidney failure, unspecified; I95.1 Orthostatic hypotension; E11.9 Type 2 diabetes mellitus without complications; E78.5 Hyperlipidemia, unspecified; K21.9 Gastro-esophageal reflux disease without esophagitis; I25.10 Atherosclerotic heart disease of native coronary artery without angina pectoris; E86.0 Dehydration; Z79.4 Long term (current) use of insulin; Z95.5 Presence of coronary angioplasty implant and graft; Z79.82 Long term (current) use of aspirin; Z90.49 Acquired absence of other specified parts of digestive tract; Z90.710 Acquired absence of both cervix and uterus
CPT/HCPCS: 36415; 70450-TC; 71045-TC-FY; 80048; 80053; 81003; 82550; 82553; 82962; 83735; 84100; 84484; 85025; 85027; 93005; 93010; 93880-TC; 96372; 97116-GP; 97161-GP; 99285-25; G0378; J1644; J7030

== ENCOUNTER 2019-02-26 20:12 | Inpatient (IN) | payer OTHER ==
--- NOTE | 2019-02-26 20:24 | PDOC ---
Rapid Medical Evaluation Chief Complaint: Lightheaded Time Seen by Provider: 02/26/19 20:18 Medical Evaluation: Allergies Allergy/AdvReac Type Severity Reaction Status Date / Time No Known Allergies Allergy Verified 08/14/18 19:58 02/26/19 20:23 Pt c/o: dizziness with n/v since this afternoon, no head injury, hx htn and diabetes, denies change in meds Pt on brief exam: bp 190/100, actively heaving in triage pt ordered for: labs, iv zofran, head ct, ekg, urine Pt to proceed to the ED Discharge Disposition - Diagnosis Dizziness - Referrals - Patient Instructions - Post Discharge Activity
[2019-02-26] MEDS ORDERED: ONDANSETRON 4 MG/2 ML VIAL IVPUSH ONE (20:26)
--- NOTE | 2019-02-26 20:58 | PDOC ---
History of Present Illness - General Chief Complaint: Lightheaded Stated Complaint: DIZZINESS/NAUSEA Time Seen by Provider: 02/26/19 20:18 - History of Present Illness Initial Comments: The pt is a 69F w/ a history of HTN, DM, GERD, CAD, s/p stenting who presents for evaluation of 3 hours of burning epigastric pain, NBNB vomiting x2, and generalized weakness. She states that her epigastric pain is the same as he typical GERD pain. She denies new foods/exposures. Denies fevers/chills, vision changes, trouble breathing, diarrhea, blood in her stool, changes in sensation, falls, or dizziness. She reports going to an urgent care yesterday and has been taking Macrobid for 1 day. Reports taking her morning insulin but not her PM dose today. 02/26/19 20:59 Past History - Past Medical History Allergies/Adverse Reactions: Allergies Allergy/AdvReac Type Severity Reaction Status Date / Time No Known Allergies Allergy Verified 02/26/19 20:23 Home Medications: Ambulatory Orders Losartan Potassium 100 mg PO DAILY 06/13/15 Simethicone [Gas Relief] 125 mg PO QID 07/01/18 Amlodipine Besylate [Norvasc -] 10 mg PO DAILY #30 tablet 07/02/18 Carvedilol [Coreg -] 3.125 mg PO BID #60 tablet 07/02/18 Aspirin [Aspirin EC] 81 mg PO DAILY 08/15/18 Insulin NPH Human Isophane [Humulin N] 21 units SQ DAILY 08/15/18 Metoprolol Succinate 25 mg PO DAILY 08/15/18 Oxybutynin Chloride 5 mg PO BID 08/15/18 Pantoprazole Sodium [Protonix] 40 mg PO DAILY 08/15/18 Pregabalin [Lyrica -] 50 mg PO TID 08/15/18 Acetaminophen [Tylenol .Regular Strength -] 325 mg PO Q6H PRN tablet 08/16/18 Polyethylene Glycol 3350 [Miralax (For Daily Use) -] 17 gm PO DAILY PRN #1 bottle 08/16/18 Sennosides/Docusate Sodium [Pericolace -] 2 tablet PO HS #30 tablet 08/16/18 Anemia: No Cardiac Disorders: Yes (CAD) COPD: No CHF: No Diabetes: Yes GI Disorders: Yes (reflux) HTN: Yes Hypercholesterolemia: Yes - Surgical History Cholecystectomy: Yes - Immunization History Td Vaccination: No TDAP Vaccination: No Immunization Up to Date: No - Suicide/Smoking/Psychosocial Hx Smoking History: Never smoked Have you smoked in the past 12 months: No Information on smoking cessation initiated: No Hx Alcohol Use: No Drug/Substance Use Hx: No Substance Use Type: None Hx Substance Use Treatment: No Review of Systems - Review of Systems Able to Perform ROS?: Yes Comments:: GENERAL/CONSTITUTIONAL: +generalized weakness; No fever or chills HEAD, EYES, EARS, NOSE AND THROAT: No change in vision. No change in hearing. No sore throat CARDIOVASCULAR: No chest pain or shortness of breath RESPIRATORY: Denies cough, hemoptysis GASTROINTESTINAL: +N and NBNB vomiting, No diarrhea or constipation GENITOURINARY: +frequency, urgency MUSCULOSKELETAL: No joint or muscle swelling or pain. No neck or back pain SKIN: No rash NEUROLOGIC: No headache, vertigo, loss of consciousness, or change in strength/ sensation ENDOCRINE: No increased thirst. No abnormal weight change HEMATOLOGIC/LYMPHATIC: No anemia, easy bleeding, or history of blood clots ALLERGIC/IMMUNOLOGIC: No hives or skin allergy 02/26/19 20:58 Is the patient limited Citizen Of [place] proficient: No *Physical Exam - Vital Signs Last Vital Signs Temp Pulse Resp BP Pulse Ox 97.5 F L 73 18 149/100 100 02/26/19 20:20 02/26/19 20:20 02/26/19 20:20 02/26/19 20:20 02/26/19 20:20 - Physical Exam Comments: GENERAL: Awake, alert, and oriented to person/place/time, in no acute distress HEAD: No signs of trauma, normocephalic, atraumatic EYES: PERRLA, EOMI, sclera anicteric, conjunctiva clear ENT: Hearing grossly normal, nares patent, oropharynx clear without exudates. Moist mucosa LUNGS: No distress, speaks in full sentences, clear to auscultation bilaterally HEART: Regular rate and rhythm, normal S1 and S2, no murmurs appreciated, peripheral pulses normal and equal bilaterally ABDOMEN: Soft, mild epigastric TTP w/o rebound or guarding, normoactive bowel sounds EXTREMITIES: Normal inspection, Normal range of motion, no edema. No clubbing or cyanosis NEUROLOGICAL: Cranial nerves II through XII grossly intact. Normal speech, normal gait, no focal sensorimotor deficits SKIN: Warm, Dry 02/26/19 20:58 ED Treatment Course - LABORATORY CBC & Chemistry Diagram: 02/26/19 20:48 02/26/19 20:48 Medical Decision Making - Medical Decision Making The pt is a 69F w/ a history of HTN, DM, CAD s/p stent, GERD who presents for evaluation of epigastric abd pain w/ associated nausea and NBNB emesis x2. On day 2 of Macrobid for UTI Ddx: GERD, gastritis, consider ACS, med intolerance, metabolic dysfunction, UTI , not likely but consider pancreatitis ED Course Labs sent from triage ECG IVF Zofran, Pepcid, Maalox, Viscous lidocaine, ofirmev 02/26/19 21:27 No leukocytosis No anemia Lytes unremarkable Cr 1.4, at baseline Trop I neg CK 252, at baseline, receiving 02/26/19 21:56 ECG w/ NSR; HR 65; QTc 413; Non specific T-wave changes, no evidence of STEMI 02/26/19 22:04 Pt reports nausea and dizziness improved. HOUGH improved but not resolved, continuing to receive ofirmev and IVF Will add lipase 02/26/19 22:08 Orthostatics, unable to tolerate standing to complete exam as she felt as though she would pass out Layin/90 HR 80s Sittin/80 HR 80s Will give additional liter of IVF, pt admitted for similar symptoms before Plan for tele obs for near syncope and evaluation by cardiology CT head pending 02/26/19 23:41 CT head pending 02/27/19 00:47 CT head w/o acute pathology 02/27/19 02:01 *DC/Admit/Observation/Transfer Diagnosis at time of Disposition: Epigastric pain, Orthostatic dizziness Nausea and vomiting Qualifiers: Vomiting type: unspecified Vomiting Intractability: non-intractable Qualified Code(s): R11.2 - Nausea with vomiting, unspecified HTN (hypertension) Qualifiers: Hypertension type: unspecified Qualified Code(s): I10 - Essential (primary) hypertension - Discharge Dispostion Condition at time of disposition: Good Decision to Admit order: Yes - Referrals - Patient Instructions - Post Discharge Activity
[2019-02-26] MEDS ORDERED: SODIUM CHLORIDE 0.9% 500 ML INFUS.BAG IV ONE ×2 (21:11→23:48)
[2019-02-26] MEDS ORDERED: MAG HYDROX/AL HYDROX/SIMETH 30 ML UNIT-DOSE CUP PO ONE (21:11)
[2019-02-26] MEDS ORDERED: FAMOTIDINE 20 MG/50 ML IVPB 20 MG/50 ML MG IVPB ONE ×2 (21:11→21:17)
[2019-02-26] MEDS ORDERED: LIDOCAINE VISCOUS 2% ORAL/TOP 20 ML UNIT-DOSE CUP MM ONE (21:11)
[2019-02-26 21:17] LABS: BASO % 0.5 % (0-2.0); HEMATOCRIT 38.7 % (32.4-45.2); LYMPH % 45.6 % (8-40); MCH 28.2 pg (25.7-33.7); MCHC 33.6 g/dl (32.0-36.0); MEAN CELL VOLUME 83.9 fl (80-96); MEAN PLT VOLUME 10.2 fl (7.5-11.1); NEUT % 41.9 % (42.8-82.8); PLATELET COUNT 212 K/MM3 (134-434); RBC 4.61 M/mm3 (3.60-5.2); RDW 15.7 % (11.6-15.6); WHITE BLOOD COUNT 4.3 K/mm3 (4.0-10.0)
[2019-02-26] MEDS ORDERED: LIDOCAINE VISCOUS 2% ORAL/TOP 20 ML UNIT-DOSE CUP ONE (21:17)
[2019-02-26] MEDS ORDERED: ONDANSETRON 4 MG/2 ML VIAL ONE (21:17)
[2019-02-26] MEDS ORDERED: MAG HYDROX/AL HYDROX/SIMETH 30 ML UNIT-DOSE CUP ONE (21:17)
[2019-02-26 21:26] LABS: EPI CELLS 2.9 /HPF (0-5/HPF); HYALINE CASTS 0 /lpf (0-8); PH,URINE >= 9.0 (5.0-8.0); URINE APPEARANCE CLEAR; URINE BACTERIA 82.6 /hpf (NEGATIVE); URINE BILIRUBIN NEGATIVE (NEGATIVE); URINE COLOR YELLOW; URINE GLUCOSE (UA) NEGATIVE (NEGATIVE); URINE KETONE NEGATIVE (NEGATIVE); URINE LEUK ESTERASE NEGATIVE (NEGATIVE); URINE NITRITE NEGATIVE (NEGATIVE); URINE PROTEIN 1+ (NEGATIVE); URINE RBC 1 /hpf (0-4); URINE UROBILINOGEN 0.2 mg/dL (0.2-1.0); URINE WBC 0 /hpf (0-5)
[2019-02-26] MEDS ORDERED: ACETAMINOPHEN 1000 MG/100 ML VIAL (NON FORMULARY) IVPB ONE (21:28)
[2019-02-26] MEDS ORDERED: ACETAMINOPHEN INJECTION 100 ML IVPB ONE (21:33)
[2019-02-26 21:40] LABS: ALBUMIN 3.5 g/dl (3.4-5.0); ALK PHOS 108 U/L (45-117); ANION GAP 9 MMOL/L (8-16); BILIRUBIN,TOTAL 0.4 mg/dL (0.2-1); BLOOD UREA NITROGEN 24.5 mg/dL (7-18); CALCIUM 9.9 mg/dL (8.5-10.1); CHLORIDE 108 mmol/L (98-107); CO2 25 mmol/L (21-32); CREATININE 1.4 mg/dL (0.55-1.3); GLUCOSE,RANDOM 99 mg/dL (74-106); MAGNESIUM 2.3 mg/dL (1.8-2.4); POTASSIUM 3.7 mmol/L (3.5-5.1); SGOT/AST 22 U/L (15-37); SGPT/ALT 27 U/L (13-61); SODIUM 142 mmol/L (136-145); TOT PROT 7.8 g/dl (6.4-8.2)
--- NOTE | 2019-02-26 21:47 | PDOC ---
Documentation entered by Lola Zuluaga SCRIBE, acting as scribe for Davidson Benz MD. Davidson Benz MD: This documentation has been prepared by the Margareth barnes Xhesika, SCRIBE, under my direction and personally reviewed by me in its entirety. I confirm that the documentation accurately reflects all work, treatment, procedures, and medical decision making performed by me. Attending Attestation - Resident Resident Name: Lance Schroeder - HPI HPI: 02/26/19 21:15 The patient is a 69 year old female with a PMH of HTN, HLD, T2DM, GERD, and CAD s/p 1 stent who presents to the ED with 3hrs of epigastric pain associated with 2 episodes of nbnb vomiting, weakness and lightheadedness. Patient states she was seen at Urgent Care yesterday for frequency and dysuria and was given Macrobid (took first dose today). Patient states this feels like her previous symptoms when she has elevated blood sugar or GERD. Patient states she did not take her insulin today because she did not have dinner and wasn't hungry. The patient denies chest pain, shortness of breath, headache. Denies fever, chills, cough, nausea,, diarrhea and constipation. Denies dysuria, frequency, urgency and hematuria. Allergies: NKDA Past surgical history: hysterectomy, cholecystectomy. Social history: No reported alcohol, drug or cigarette use. - Physicial Exam PE: 02/27/19 05:50 Agree with exam as documented by resident - Medical Decision Making 02/27/19 05:50 Epigastric px a/w n/v lightheadedness, consider gastritis, less likely acs f/u labs, ekg, cxr symptomatic tx dispo per clinical course Pt no longer nauseous, pain resolved Still endorsing lightheadedness Asked for bedpan because she became too lightheaded to walk when she tried to go to bathroom Not-room spinning or associated with sharp movements or position f/u ct brain ct no acute pathology admit
[2019-02-26 22:31] LABS: LIPASE 142 U/L (73-393)
[2019-02-27] MEDS ORDERED: SODIUM CHLORIDE 1,000 ML IV STA ×2 (00:50→01:36)
--- NOTE | 2019-02-27 00:58 | HP ---
CHIEF COMPLAINT: dizziness PCP: HISTORY OF PRESENT ILLNESS: Patient is a 69 year old female with PMH of HTN, IDDM, CAD (s/p stenting), Gerd who presents with 1 day of dizziness. Pt also complains of associated nausea, chills, and 2 episodes of nbnb vomiting. She denies any abd pain, constipation, diarrhea, or fevers. Her dizziness is intermittent and exacerbated with standing. Pt denies episodes of dizziness in the past, however, she was seen in the ED 6 months ago for similar symptoms and was found to be orthostatic. She denies any recurrent vertigo, lightheadedness, headaches, syncope/frequent falls. Pt had abd pain and dysuria 2 days ago and went to urgent care where she was diagnosed with UTI and started on macrobid. Those symptoms have since resolved. She denies a hx of neurologic/balance issues or any arrhythmias. ER course was notable for: (1) Positive orthostatics, pt was dizzy, lightheaded, and nauseous upon standing (2) CT head: no acute intracranial pathology (3) Recent Travel: denies PAST MEDICAL HISTORY: HTN IDDM CAD (s/p stenting) Gerd PAST SURGICAL HISTORY: Cholecystectomy Hysterectomy Stent Social History: Smoking: denies Alcohol: denies Drugs: denies Family History: Allergies No Known Allergies Allergy (Verified 02/26/19 20:23) HOME MEDICATIONS: Home Medications Medication Instructions Recorded Losartan Potassium 100 mg PO DAILY 06/13/15 Simethicone [Gas Relief] 125 mg PO QID 07/01/18 Amlodipine Besylate [Norvasc -] 10 mg PO DAILY #30 tablet 07/02/18 Carvedilol [Coreg -] 3.125 mg PO BID #60 tablet 07/02/18 Aspirin [Aspirin EC] 81 mg PO DAILY 08/15/18 Insulin NPH Human Isophane 21 units SQ DAILY 08/15/18 [Humulin N] Metoprolol Succinate 25 mg PO DAILY 08/15/18 Oxybutynin Chloride 5 mg PO BID 08/15/18 Pantoprazole Sodium [Protonix] 40 mg PO DAILY 08/15/18 Pregabalin [Lyrica -] 50 mg PO TID 08/15/18 Acetaminophen [Tylenol .Regular 325 mg PO Q6H PRN tablet 08/16/18 Strength -] Polyethylene Glycol 3350 [Miralax 17 gm PO DAILY PRN #1 bottle 08/16/18 (For Daily Use) -] Sennosides/Docusate Sodium 2 tablet PO HS #30 tablet 08/16/18 [Pericolace -] REVIEW OF SYSTEMS CONSTITUTIONAL: generalized weakness Absent: fever, chills, diaphoresis, malaise, loss of appetite, weight change HEENT: Absent: rhinorrhea, nasal congestion, throat pain, throat swelling, difficulty swallowing, mouth swelling, ear pain, eye pain, visual changes CARDIOVASCULAR: Absent: chest pain, syncope, palpitations, irregular heart rate, lightheadedness , peripheral edema RESPIRATORY: Absent: cough, shortness of breath, dyspnea with exertion, orthopnea, wheezing, stridor, hemoptysis GASTROINTESTINAL: nausea, vomiting Absent: abdominal pain, abdominal distension, diarrhea, constipation, melena, hematochezia GENITOURINARY: Absent: dysuria, frequency, urgency, hesitancy, hematuria, flank pain, genital pain MUSCULOSKELETAL: Absent: myalgia, arthralgia, joint swelling, back pain, neck pain SKIN: Absent: rash, itching, pallor HEMATOLOGIC/IMMUNOLOGIC: Absent: easy bleeding, easy bruising, lymphadenopathy, frequent infections ENDOCRINE: Absent: unexplained weight gain, unexplained weight loss, heat intolerance, cold intolerance NEUROLOGIC: dizziness Absent: headache, focal weakness or paresthesias, unsteady gait, seizure, mental status changes, bladder or bowel incontinence PSYCHIATRIC: Absent: anxiety, depression, suicidal or homicidal ideation, hallucinations. PHYSICAL EXAMINATION Vital Signs - 24 hr 02/26/19 20:20 Temperature 97.5 F L Pulse Rate 73 Respiratory 18 Rate Blood Pressure 149/100 O2 Sat by Pulse 100 Oximetry (%) GENERAL: Awake, alert, and fully oriented, in no acute distress. HEAD: Normal with no signs of trauma. EYES: Pupils equal, round and reactive to light, extraocular movements intact, sclera anicteric, conjunctiva clear. No lid lag. EARS, NOSE, THROAT: Ears normal, nares patent, oropharynx clear without exudates. Moist mucous membranes. NECK: Normal range of motion, supple without lymphadenopathy, JVD, or masses. LUNGS: Breath sounds equal, clear to auscultation bilaterally. No wheezes, and no crackles. No accessory muscle use. HEART: Regular rate and rhythm, normal S1 and S2 without murmur, rub or gallop. ABDOMEN: Soft, nontender, not distended, normoactive bowel sounds, no guarding, no rebound, no masses. No hepatomegaly or splenomegaly. MUSCULOSKELETAL: Normal range of motion at all joints. No bony deformities or tenderness. No CVA tenderness. UPPER EXTREMITIES: 2+ pulses, warm, well-perfused. No cyanosis. No clubbing. No peripheral edema. LOWER EXTREMITIES: 2+ pulses, warm, well-perfused. No calf tenderness. No peripheral edema. NEUROLOGICAL: Cranial nerves II-XII intact. Normal speech. Normal gait. PSYCHIATRIC: Cooperative. Good eye contact. Appropriate mood and affect. SKIN: Warm, dry, normal turgor, no rashes or lesions noted, normal capillary refill. Laboratory Results - last 24 hr CBC, BMP 02/26/19 20:48 02/26/19 20:48 Urine Test Results Urine Color Yellow Urine Appearance Clear Urine pH >= 9.0 (5.0-8.0) H Ur Specific Talent 1.009 (1.010-1.035) L Urine Protein 1+ (NEGATIVE) H Urine Glucose (UA) Negative (NEGATIVE) Urine Ketones Negative (NEGATIVE) Urine Blood Negative (NEGATIVE) Urine Nitrite Negative (NEGATIVE) Urine Bilirubin Negative (NEGATIVE) Ur Leukocyte Esterase Negative (NEGATIVE) ASSESSMENT/PLAN: Patient is a 69 year old female with PMH of HTN, IDDM, CAD (s/p stenting), Gerd who presents with 1 day of dizziness. #Dizziness 2/2 orthostatic hypotension. Positive orthostatics as pt is dizzines, nauseous, lightheaded on standing R/o cardiogenic etiology EKG: NSR, no ischemic changes. Will monitor on tele Echo (07/02/18): mod concentriv LVH, EF: 65% Carotid US (08/15/18): no hemodynamically significant stenosis IV NS bolus x2 given Cont to monitor BP #HTN Held BP meds overnight due to pt's orthostasis and closely monitored BP Pt's BP increased by am, so restarting home medications: norvasc 10mg, losartan 100mg, carvedilol 3.125mg #UTI with MATTHEW Pt recently diagnosed with UTI as outpt and put on macrobid Due to pt's MATTHEW, will switch to Keflex 500mg BID #IDDM Pt takes insulin 21 units SQ at home Starting on SSI during admission FSG monitoring #FEN IV NS bolus x2 given Diabetic/sodium-controlled diet #DVT Heparin SQ #Dispo Monitor on tele Visit type - Emergency Visit Emergency Visit: Yes ED Registration Date: 02/26/19 Care time: The patient presented to the Emergency Department on the above date and was hospitalized for further evaluation of their emergent condition. - New Patient This patient is new to me today: Yes Date on this admission: 02/27/19 - Critical Care Critical Care patient: No ATTENDING PHYSICIAN STATEMENT I saw and evaluated the patient. I reviewed the resident's note and discussed the case with the resident. I agree with the resident's findings and plan as documented. SUBJECTIVE: OBJECTIVE: ASSESSMENT AND PLAN:
[2019-02-27] MEDS ORDERED: HEPARIN NA (PORCINE) 5,000 UNITS/ML 1ML VIAL SQ SCH (02:00)
--- NOTE | 2019-02-27 02:57 | PN ---
Teaching Attending Note Name of Resident: Naomi Pederson ATTENDING PHYSICIAN STATEMENT I saw and evaluated the patient. I reviewed the resident's note and discussed the case with the resident. I agree with the resident's findings and plan as documented. Seen and examined; please refer to resident note for further historical information. Briefly this is a 69 y/o female presenting to the ER with a CC of VS, labs, imaging reviewed NAD, AAO, restign comfortably in bed RRR s1/2 NT ND +BS CN2-12 wnl, no fnd Normal mood, appropriate behavior EKG reviewed Telemetry ordered ASSESSMENT AND PLAN: Patient presents with near syncope, dizziness.
[2019-02-27] MEDS ORDERED: LOSARTAN POTASSIUM 50 MG TABLET (FP) PO SCH (06:26)
[2019-02-27] MEDS: HEPARIN NA (PORCINE) 5,000 UNITS/ML 1ML VIAL SQ SCH ×3 (06:30→21:24)
[2019-02-27] MEDS ORDERED: HEPARIN NA (PORCINE) 5,000 UNITS/ML 1ML VIAL ONE ×2 (06:31→14:06)
[2019-02-27] MEDS: INSULIN SLIDING SCALE (NOVOLOG) 1 VIAL SQ SCH ×2 (06:44→11:17)
[2019-02-27 07:58] LABS: BASO % 0.4 % (0-2.0); EOS % 2.2 % (0-4.5); HEMATOCRIT 34.9 % (32.4-45.2); HEMOGLOBIN 11.7 GM/dL (10.7-15.3); LYMPH % 29.4 % (8-40); MCH 28.3 pg (25.7-33.7); MCHC 33.6 g/dl (32.0-36.0); MEAN CELL VOLUME 84.2 fl (80-96); MEAN PLT VOLUME 10.4 fl (7.5-11.1); MONO % 6.1 % (3.8-10.2); NEUT % 61.9 % (42.8-82.8); PLATELET COUNT 180 K/MM3 (134-434); RBC 4.15 M/mm3 (3.60-5.2); RDW 15.9 % (11.6-15.6); WHITE BLOOD COUNT 4.7 K/mm3 (4.0-10.0)
[2019-02-27 09:04] LABS: ALBUMIN 3.1 g/dl (3.4-5.0); BILIRUBIN,TOTAL 0.4 mg/dL (0.2-1); BLOOD UREA NITROGEN 14.4 mg/dL (7-18); CALCIUM 8.7 mg/dL (8.5-10.1); CREATININE 1.2 mg/dL (0.55-1.3); POTASSIUM 3.9 mmol/L (3.5-5.1); TOT PROT 6.8 g/dl (6.4-8.2)
[2019-02-27] MEDS ORDERED: PATIENT'S OWN MEDICATION (NON-FORMULARY) (Losartan Potassium [Losartan Potassium] 100 MG) PO SCH (10:00)
[2019-02-27] MEDS ORDERED: CARVEDILOL 3.125 MG TABLET (FP) PO SCH (10:00)
[2019-02-27] MEDS ORDERED: CEPHALEXIN MONOHYDRATE 500 MG CAPSULE (UD) PO SCH (10:00)
[2019-02-27] MEDS ORDERED: amLODIPine BESYLATE 10 MG TABLET (FP) PO SCH (10:00)
[2019-02-27] MEDS: ASPIRIN COATED 81 MG TABLET.EC PO SCH (10:32)
[2019-02-27] MEDS: LOSARTAN POTASSIUM 50 MG TABLET (FP) PO SCH ×2 (11:17→21:23)
[2019-02-27] MEDS ORDERED: INSULIN (NOVOLOG) ASPART 100 UNITS/ML 10ML VIAL ONE (11:19)
--- NOTE | 2019-02-27 11:45 | EKG ---
Test Reason : Blood Pressure : / mmHG Vent. Rate : 065 BPM Atrial Rate : 065 BPM P-R Int : 130 ms QRS Dur : 084 ms QT Int : 398 ms P-R-T Axes : 062 042 075 degrees QTc Int : 413 ms NORMAL SINUS RHYTHM POSSIBLE LEFT ATRIAL ENLARGEMENT NONSPECIFIC T WAVE ABNORMALITY ABNORMAL ECG WHEN COMPARED WITH ECG OF 14-AUG-2018 22:05, NO SIGNIFICANT CHANGE WAS FOUND Confirmed by NABOR HOLBROOK, LONNIE ([id number]) on 02/27/2019 11:45:18 AM Referred By: Confirmed By:LONNIE TOMLIN MD
--- NOTE | 2019-02-27 13:27 | PN ---
Teaching Attending Note Name of Resident: Raul Earl ATTENDING PHYSICIAN STATEMENT I saw and evaluated the patient. I reviewed the resident's note and discussed the case with the resident. I agree with the resident's findings and plan as documented. SUBJECTIVE: seen at around 9:30 felt better at that time. denied any HOUGH , SOB , visual changes or CP . she felt a little light headed with changing position from flat to sitting, but sx were better than before. She reports being started on doxazosin for HTN by card as out pt ( 5 days ago) OBJECTIVE: NAD , awake , alert, cooperative MMM, no facial droop, EOMI, round equal pupils, reactive to light. . CV: RRR, no MRG , No JVD Lungs: CATB Abd: soft, ND, NT. Ext : no edema or erythema ASSESSMENT AND PLAN: 69 y/o lady with h/o HTN, HLP, DM , CAD, s/p stents, GERD, and h/o syncope due to orthostatic hypotension who presented with a syncopal episode. 1- Syncope: due to orthostatic hypotension. Over night HR did nto increase with the positional drop in BP , indicating some degree of autonomic dysfunction in addition to the volume depletion and the addition of new BP medication - BP at time of evaluation 194/94. - resume her antihypertensive meds( resume Losartan and Hydralazin, and hold doxazosin ) - repeat orthostatic VS, if still positive, will cont IVF - monitor closely. 2- HTN urgency: as above. elevated BP but + orthostatics. - resume losartan and hydralazine - hold doxazosin 3- MATTHEW : due to volume depletion. - cr is back to NL after IVF - resume losartan and monitor closely 5- DM : takes Humulin N in am and PM . - will use HS levemir while here. - SSI 6- Recent diagnosis of UTI as outpt : due to Cr Cl of 48ml/min, Macrobid was changed to kefflex. - will obtain urine cx results from urgent care, to confirm sensitivity DVT PX Possible dc in am
[2019-02-27] MEDS ORDERED: hydrALAZINE HCL 25 MG TABLET (FP) ONE (14:06)
[2019-02-27] MEDS: hydrALAZINE HCL 25 MG TABLET (FP) PO SCH ×2 (14:17→21:23)
--- NOTE | 2019-02-27 16:43 | PN ---
Physical Exam: SUBJECTIVE: Patient seen and examined by the bedside, AOx3, no acute complaints. OBJECTIVE: Vital Signs Period Temp Pulse Resp BP Sys/Gómez Pulse Ox Last 24 Hr 97.5 F-98.1 F 73-83 16-18 149-187/77-100 95-100 GENERAL: The patient is awake, alert, and fully oriented, in no acute distress. HEAD: Normal with no signs of trauma. EYES: PERRL, extraocular movements intact, sclera anicteric, conjunctiva clear. No ptosis. ENT: Ears normal, nares patent, oropharynx clear without exudates, moist mucous membranes. NECK: Trachea midline, full range of motion, supple. LUNGS: Breath sounds equal, clear to auscultation bilaterally, no wheezes, no crackles, no accessory muscle use. HEART: Regular rate and rhythm, S1, S2 without murmur, rub or gallop. ABDOMEN: Soft, nontender, nondistended, normoactive bowel sounds, no guarding, no rebound, no hepatosplenomegaly, no masses. EXTREMITIES: 2+ pulses, warm, well-perfused, no edema. NEUROLOGICAL: Cranial nerves II through XII grossly intact. Normal speech, gait not observed, power 5/5 B/L in both extremities PSYCH: Normal mood, normal affect. SKIN: Warm, dry, normal turgor, no rashes or lesions noted Laboratory Results - last 24 hr 02/26/19 02/26/19 02/26/19 20:48 20:48 20:48 WBC 4.3 RBC 4.61 Hgb 13.0 Hct 38.7 MCV 83.9 MCH 28.2 MCHC 33.6 RDW 15.7 H Plt Count 212 MPV 10.2 Absolute Neuts (auto) 1.8 Neutrophils % 41.9 L D Lymphocytes % 45.6 H D Monocytes % 8.0 Eosinophils % 4.0 Basophils % 0.5 Nucleated RBC % 0 ESR Sodium 142 Potassium 3.7 Chloride 108 H Carbon Dioxide 25 Anion Gap 9 BUN 24.5 H Creatinine 1.4 H Est GFR (CKD-EPI)AfAm 43.70 Est GFR (CKD-EPI)NonAf 37.71 POC Glucometer Random Glucose 99 Calcium 9.9 Magnesium 2.3 Total Bilirubin 0.4 AST 22 ALT 27 Alkaline Phosphatase 108 Creatine Kinase 252 H Creatine Kinase Index 0.9 CK-MB (CK-2) 2.4 Troponin I < 0.02 C-Reactive Protein Total Protein 7.8 Albumin 3.5 Lipase 142 Vitamin B12 TSH Urine Color Urine Appearance Urine pH Ur Specific Belle Urine Protein Urine Glucose (UA) Urine Ketones Urine Blood Urine Nitrite Urine Bilirubin Urine Urobilinogen Ur Leukocyte Esterase Urine WBC (Auto) Urine RBC (Auto) Urine Casts (Auto) U Epithel Cells (Auto) Urine Bacteria (Auto) RPR Titer Blood Type O POSITIVE Antibody Screen Negative 02/26/19 02/27/19 02/27/19 20:53 01:40 06:41 WBC RBC Hgb Hct MCV MCH MCHC RDW Plt Count MPV Absolute Neuts (auto) Neutrophils % Lymphocytes % Monocytes % Eosinophils % Basophils % Nucleated RBC % ESR Sodium Potassium Chloride Carbon Dioxide Anion Gap BUN Creatinine Est GFR (CKD-EPI)AfAm Est GFR (CKD-EPI)NonAf POC Glucometer 146 Random Glucose Calcium Magnesium Total Bilirubin AST ALT Alkaline Phosphatase Creatine Kinase Creatine Kinase Index CK-MB (CK-2) Troponin I < 0.02 C-Reactive Protein Total Protein Albumin Lipase Vitamin B12 TSH Urine Color Yellow Urine Appearance Clear Urine pH >= 9.0 H Ur Specific Belle 1.009 L Urine Protein 1+ H Urine Glucose (UA) Negative Urine Ketones Negative Urine Blood Negative Urine Nitrite Negative Urine Bilirubin Negative Urine Urobilinogen 0.2 Ur Leukocyte Esterase Negative Urine WBC (Auto) 0 Urine RBC (Auto) 1 Urine Casts (Auto) 0 U Epithel Cells (Auto) 2.9 Urine Bacteria (Auto) 82.6 RPR Titer Blood Type Antibody Screen 02/27/19 02/27/19 02/27/19 07:09 07:09 07:09 WBC 4.7 RBC 4.15 Hgb 11.7 Hct 34.9 MCV 84.2 MCH 28.3 MCHC 33.6 RDW 15.9 H Plt Count 180 MPV 10.4 Absolute Neuts (auto) 2.9 Neutrophils % 61.9 D Lymphocytes % 29.4 D Monocytes % 6.1 Eosinophils % 2.2 Basophils % 0.4 Nucleated RBC % 0 ESR Sodium 142 Potassium 3.9 Chloride 111 H Carbon Dioxide 25 Anion Gap 6 L BUN 14.4 Creatinine 1.2 Est GFR (CKD-EPI)AfAm 52.66 Est GFR (CKD-EPI)NonAf 45.43 POC Glucometer Random Glucose 165 H Calcium 8.7 Magnesium Total Bilirubin 0.4 AST 21 ALT 24 Alkaline Phosphatase 98 Creatine Kinase Creatine Kinase Index CK-MB (CK-2) Troponin I C-Reactive Protein Total Protein 6.8 Albumin 3.1 L Lipase 87 Vitamin B12 2137 H TSH 0.84 Urine Color Urine Appearance Urine pH Ur Specific Belle Urine Protein Urine Glucose (UA) Urine Ketones Urine Blood Urine Nitrite Urine Bilirubin Urine Urobilinogen Ur Leukocyte Esterase Urine WBC (Auto) Urine RBC (Auto) Urine Casts (Auto) U Epithel Cells (Auto) Urine Bacteria (Auto) RPR Titer Blood Type O POSITIVE Antibody Screen 02/27/19 02/27/19 02/27/19 07:09 07:09 07:09 WBC RBC Hgb Hct MCV MCH MCHC RDW Plt Count MPV Absolute Neuts (auto) Neutrophils % Lymphocytes % Monocytes % Eosinophils % Basophils % Nucleated RBC % ESR 25 Sodium Potassium Chloride Carbon Dioxide Anion Gap BUN Creatinine Est GFR (CKD-EPI)AfAm Est GFR (CKD-EPI)NonAf POC Glucometer Random Glucose Calcium Magnesium Total Bilirubin AST ALT Alkaline Phosphatase Creatine Kinase Creatine Kinase Index CK-MB (CK-2) Troponin I C-Reactive Protein Total Protein Albumin Lipase Vitamin B12 Cancelled TSH Urine Color Urine Appearance Urine pH Ur Specific Belle Urine Protein Urine Glucose (UA) Urine Ketones Urine Blood Urine Nitrite Urine Bilirubin Urine Urobilinogen Ur Leukocyte Esterase Urine WBC (Auto) Urine RBC (Auto) Urine Casts (Auto) U Epithel Cells (Auto) Urine Bacteria (Auto) RPR Titer Nonreactive Blood Type Antibody Screen 02/27/19 02/27/19 07:09 11:14 WBC RBC Hgb Hct MCV MCH MCHC RDW Plt Count MPV Absolute Neuts (auto) Neutrophils % Lymphocytes % Monocytes % Eosinophils % Basophils % Nucleated RBC % ESR Sodium Potassium Chloride Carbon Dioxide Anion Gap BUN Creatinine Est GFR (CKD-EPI)AfAm Est GFR (CKD-EPI)NonAf POC Glucometer 202 Random Glucose Calcium Magnesium Total Bilirubin AST ALT Alkaline Phosphatase Creatine Kinase Creatine Kinase Index CK-MB (CK-2) Troponin I C-Reactive Protein 0.5 H Total Protein Albumin Lipase Vitamin B12 TSH Urine Color Urine Appearance Urine pH Ur Specific Belle Urine Protein Urine Glucose (UA) Urine Ketones Urine Blood Urine Nitrite Urine Bilirubin Urine Urobilinogen Ur Leukocyte Esterase Urine WBC (Auto) Urine RBC (Auto) Urine Casts (Auto) U Epithel Cells (Auto) Urine Bacteria (Auto) RPR Titer Blood Type Antibody Screen Active Medications Generic Name Dose Route Start Last Admin Trade Name Janeth PRN Reason Stop Dose Admin Aspirin 81 mg 02/27/19 10:00 02/27/19 10:32 Ecotrin - PO 81 mg DAILY XI Administration Cephalexin HCl 500 mg 02/27/19 10:00 02/27/19 10:32 Keflex - PO 500 mg BID XI Administration Gabapentin 100 mg 02/27/19 22:00 Neurontin - PO BID XI Heparin Sodium (Porcine) 5,000 unit 02/27/19 04:44 02/27/19 14:17 Heparin - SQ 5,000 unit TID XI Administration Hydralazine HCl 25 mg 02/27/19 14:00 02/27/19 14:17 Apresoline - PO 25 mg TID XI Administration Insulin Aspart 1 vial 02/27/19 07:00 02/27/19 11:17 Novolog Vial Sliding Scale - SQ 4 units TIDAC XI Administration Protocol Insulin Detemir 15 units 02/27/19 22:00 Levemir Vial SQ HS XI Lactic Acid 1 applic 02/27/19 22:00 Lac-Hydrin 12 TP BID XI Latanoprost 1 drop 02/27/19 22:00 Xalatan 0.005% Eye Drops - OD HS XI Losartan Potassium 50 mg 02/27/19 10:45 02/27/19 11:17 Cozaar - PO 50 mg BID XI Administration Ranitidine HCl 300 mg 02/27/19 22:00 Zantac - PO HS XI Tolterodine Tartrate 4 mg 02/28/19 10:00 Detrol La - PO DAILY [facility] ASSESSMENT/PLAN: Patient is a 69 year old female with PMH of HTN, IDDM, CAD (s/p stenting), Gerd who presents with 1 day of dizziness. #Dizziness 2/2 Orthostatic hypotension - Positive orthostatics on admission, negative after 3x N/S - EKG: NSR, no ischemic changes. Will monitor on tele - Echo (07/02/18): mod concentriv LVH, EF: 65% - Carotid US (08/15/18): no HD stenosis #HTN - Cont. home meds Losartan 50mg BD, Hydralazine 25mg TID, Hold Doxazosin #Inconctinence - Cont home med Detrol 4mg PO #UTI with MATTHEW - No Ucx found from previous emergency care visit 2 days ago - Keflex D/John, patient asymptomatic with normal UA #IDDM - Pt takes insulin 21 units SQ at home - Levemir, Novolog SSI started - BGM Monitoring #FEN - IV NS 3x given - Diabetic/sodium-controlled diet #DVT - Heparin SQ #Dispo - Monitor on tele - Spoke with daughter on the phone, updated her about patient's progress Visit type - Emergency Visit Emergency Visit: Yes ED Registration Date: 02/26/19 Care time: The patient presented to the Emergency Department on the above date and was hospitalized for further evaluation of their emergent condition. - New Patient This patient is new to me today: Yes Date on this admission: 02/27/19 - Critical Care Critical Care patient: No - Discharge Referral Referred to [facility] Med P.C.: No ATTENDING PHYSICIAN STATEMENT I saw and evaluated the patient. I reviewed the resident's note and discussed the case with the resident. I agree with the resident's findings and plan as documented. SUBJECTIVE: OBJECTIVE: ASSESSMENT AND PLAN:
[2019-02-27 18:01] VITALS: BMI 28.5
[2019-02-27] MEDS: RANITIDINE HCL 150 MG TABLET (FP) PO SCH (21:23)
[2019-02-27] MEDS: GABAPENTIN 100 MG CAPSULE (FP) PO SCH (21:24)
[2019-02-27] MEDS: INSULIN (LEVEMIR) 100 UNITS/ML UNITS SQ SCH (21:24)
[2019-02-27] MEDS: LATANOPROST 0.005% OPHTH SOLN 2.5ML BOTTLE OD SCH (22:50)
[2019-02-27] MEDS: AMMONIUM LACTATE 12% LOTION 225 GM BOTTLE TP SCH (22:53)
[2019-02-28] MEDS: hydrALAZINE HCL 25 MG TABLET (FP) PO SCH ×3 (05:53→21:47)
[2019-02-28] MEDS: HEPARIN NA (PORCINE) 5,000 UNITS/ML 1ML VIAL SQ SCH ×3 (05:54→21:55)
[2019-02-28 07:02] LABS: BLOOD UREA NITROGEN 28.3 mg/dL (7-18); CREATININE 1.6 mg/dL (0.55-1.3); POTASSIUM 4.2 mmol/L (3.5-5.1)
[2019-02-28 07:22] LABS: HEMATOCRIT 35.8 % (32.4-45.2); HEMOGLOBIN 12.1 GM/dL (10.7-15.3); MCH 28.8 pg (25.7-33.7); MCHC 33.8 g/dl (32.0-36.0); MEAN CELL VOLUME 85.3 fl (80-96); MEAN PLT VOLUME 10.9 fl (7.5-11.1); PLATELET COUNT 186 K/MM3 (134-434); RDW 15.8 % (11.6-15.6); WHITE BLOOD COUNT 5.1 K/mm3 (4.0-10.0)
[2019-02-28] MEDS ORDERED: PATIENT'S OWN MEDICATION (NON-FORMULARY) (Losartan Potassium [Losartan Potassium] 100 MG) PO SCH (10:00)
[2019-02-28] MEDS ORDERED: SODIUM CHLORIDE 1,000 ML IV SCH (10:15)
--- NOTE | 2019-02-28 10:18 | PN ---
Teaching Attending Note Name of Resident: Chris Tubbs ATTENDING PHYSICIAN STATEMENT I saw and evaluated the patient. I reviewed the resident's note and discussed the case with the resident. I agree with the resident's findings and plan as documented. SUBJECTIVE: No fever ro chills. No HOUGH , no Cp or SOB . no dizziness las night or this am, feels better , but still feels her gait is unsteady OBJECTIVE: NAD , awake , alert, cooperative MMM, no facial droop, EOMI, round equal pupils, reactive to light. CV: RRR, no MRG , No JVD Lungs: CATB Ext : no edema or erythema neuro : EOMI, no facial droop. tongue at mid line, strength 5/5 in Upper and lower extremities proximally and distally. 2+ knee jerk reflexes, and 1+ biceps reflexes bilaterally ASSESSMENT AND PLAN: 69 y/o lady with h/o HTN, HLP, DM , CAD, s/p stents, GERD, and h/o syncope due to orthostatic hypotension who presented with a syncopal episode. 1- Syncope: due to orthostatic hypotension. - due to continued signs of volume depletion , will resume IVF - monitor BP carefully - tele wit hno events 2- HTN urgency: BP improved - hold valsartan due to MATTHEW - confirmed with her she is on coreg that was increased in a prior visit frm 3.125 to 6.25 BID. - cont hydralazine - contt o hold doxazosin 3- MATTHEW : due to volume depletion and being on ARB - hold losartan - resume IVF 5- DM : takes Humulin N in am and PM . - Cont HS levemir while here. - SSI 6- Recent diagnosis of UTI as outpt : UA form urologist office was oabtained which did not show any signs of UTI. no U cx was done. - Monitor off Abx DVT PX Possible dc in am
[2019-02-28] MEDS ORDERED: PT OWN MED DRAWER 7, Y5N ONE ×2 (10:35→14:25)
--- NOTE | 2019-02-28 10:48 | PN ---
Physical Exam: SUBJECTIVE: Patient seen and examined by the bedside, AOx3, no acute events overnight. OBJECTIVE: Vital Signs Period Temp Pulse Resp BP Sys/Gómez Pulse Ox Last 24 Hr 97.9 F-98.0 F 77-93 16-20 142-177/77-91 95-98 GENERAL: The patient is awake, alert, and fully oriented, in no acute distress. HEAD: Normal with no signs of trauma. EYES: PERRL, extraocular movements intact, sclera anicteric, conjunctiva clear. No ptosis. ENT: Ears normal, nares patent, oropharynx clear without exudates, moist mucous membranes. NECK: Trachea midline, full range of motion, supple. LUNGS: Breath sounds equal, clear to auscultation bilaterally, no wheezes, no crackles, no accessory muscle use. HEART: Regular rate and rhythm, S1, S2 without murmur, rub or gallop. ABDOMEN: Soft, nontender, nondistended, normoactive bowel sounds, no guarding, no rebound, no hepatosplenomegaly, no masses. EXTREMITIES: 2+ pulses, warm, well-perfused, no edema. NEUROLOGICAL: Cranial nerves II through XII grossly intact. Normal speech, gait not observed, power 5/5 B/L in both extremities, JOCE, F2N, Heel Spence, and Romberg's negative PSYCH: Normal mood, normal affect. SKIN: Warm, dry, normal turgor, no rashes or lesions noted Laboratory Results - last 24 hr 02/27/19 02/27/19 02/28/19 11:14 20:59 05:10 WBC RBC Hgb Hct MCV MCH MCHC RDW Plt Count MPV Sodium 142 Potassium 4.2 Chloride 111 H Carbon Dioxide 25 Anion Gap 7 L BUN 28.3 H Creatinine 1.6 H Est GFR (CKD-EPI)AfAm 37.19 Est GFR (CKD-EPI)NonAf 32.09 POC Glucometer 202 206 Random Glucose 116 H Calcium 9.0 02/28/19 02/28/19 05:21 05:30 WBC 5.1 RBC 4.20 Hgb 12.1 Hct 35.8 MCV 85.3 MCH 28.8 MCHC 33.8 RDW 15.8 H Plt Count 186 MPV 10.9 Sodium Potassium Chloride Carbon Dioxide Anion Gap BUN Creatinine Est GFR (CKD-EPI)AfAm Est GFR (CKD-EPI)NonAf POC Glucometer 120 Random Glucose Calcium Active Medications Generic Name Dose Route Start Last Admin Trade Name Janeth PRN Reason Stop Dose Admin Aspirin 81 mg 02/27/19 10:00 02/27/19 10:32 Ecotrin - PO 81 mg DAILY XI Administration Carvedilol 6.25 mg 02/28/19 10:00 Coreg - PO BID XI Gabapentin 100 mg 02/27/19 22:00 02/27/19 21:24 Neurontin - PO 100 mg BID XI Administration Heparin Sodium (Porcine) 5,000 unit 02/27/19 04:44 02/28/19 05:54 Heparin - SQ 5,000 unit TID XI Administration Hydralazine HCl 25 mg 02/27/19 14:00 02/28/19 05:53 Apresoline - PO 25 mg TID XI Administration Sodium Chloride 1,000 mls @ 75 mls/hr 02/28/19 10:15 Normal Saline - IV ASDIR XI Insulin Aspart 1 vial 02/27/19 07:00 02/27/19 11:17 Novolog Vial Sliding Scale - SQ 4 units TIDAC [facility] Administration Protocol Insulin Detemir 15 units 02/27/19 22:00 02/27/19 21:24 Levemir Vial SQ 15 units HS XI Administration Lactic Acid 1 applic 02/27/19 22:00 02/27/19 22:53 Lac-Hydrin 12 TP Not Given BID [facility] Latanoprost 1 drop 02/27/19 22:00 02/27/19 22:50 Xalatan 0.005% Eye Drops - OD 1 drop HS XI Administration Ranitidine HCl 300 mg 02/27/19 22:00 02/27/19 21:23 Zantac - PO 300 mg HS XI Administration Tolterodine Tartrate 4 mg 02/28/19 10:00 Detrol La - PO DAILY [facility] ASSESSMENT/PLAN: 69 year old female with PMH of HTN, DM, CAD (s/p stenting), GERD who presented with 1 day of dizziness. Admitted for Orthostatic Hypotension #Dizziness 2/2 Orthostatic hypotension - PT ordered - Positive orthostatics on admission, negative after 3x N/S - EKG: NSR, no ischemic changes, ECHO mod concentriv LVH, EF: 65%, Carotid USG in Aug showed Carotid no HD stenosis #HTN - Continue Hydralazine 25mg TID and Coreg 6.25mg BID, Hold Hold Losartan 50mg BD and Doxazosin #Inconctinence - Cont home med Detrol 4mg PO #UTI with MATTHEW - N/S @75 #IDDM - Pt takes insulin 21 units SQ at home - Levemir 15 HS (9PM yest) , Novolog SSI (4 units 11AM yest) - BGM #FEN - N/S @75 - Diabetic/sodium-controlled diet #DVT - Heparin SQ #Dispo - Monitor on tele Visit type - Emergency Visit Emergency Visit: Yes ED Registration Date: 02/26/19 Care time: The patient presented to the Emergency Department on the above date and was hospitalized for further evaluation of their emergent condition. - New Patient This patient is new to me today: No - Critical Care Critical Care patient: No - Discharge Referral Referred to [facility] Med P.C.: No ATTENDING PHYSICIAN STATEMENT I saw and evaluated the patient. I reviewed the resident's note and discussed the case with the resident. I agree with the resident's findings and plan as documented. SUBJECTIVE: OBJECTIVE: ASSESSMENT AND PLAN:
[2019-02-28] MEDS: CARVEDILOL 6.25 MG TABLET (FP) PO SCH ×2 (11:26→21:47)
[2019-02-28] MEDS: GABAPENTIN 100 MG CAPSULE (FP) PO SCH ×2 (11:26→21:47)
[2019-02-28] MEDS: ASPIRIN COATED 81 MG TABLET.EC PO SCH (11:27)
[2019-02-28] MEDS: AMMONIUM LACTATE 12% LOTION 225 GM BOTTLE TP SCH ×2 (11:30→21:45)
[2019-02-28] MEDS: INSULIN SLIDING SCALE (NOVOLOG) 1 VIAL SQ SCH ×2 (12:42→18:52)
[2019-02-28] MEDS: TOLTERODINE TARTRATE LA 4 MG CAP.SR.24H (FP) PO SCH (15:18)
[2019-02-28] MEDS: LATANOPROST 0.005% OPHTH SOLN 2.5ML BOTTLE OD SCH (21:46)
[2019-02-28] MEDS: RANITIDINE HCL 150 MG TABLET (FP) PO SCH (21:47)
[2019-02-28] MEDS: INSULIN (LEVEMIR) 100 UNITS/ML UNITS SQ SCH (21:55)
[2019-03-01] MEDS: hydrALAZINE HCL 25 MG TABLET (FP) PO SCH (05:48)
[2019-03-01] MEDS: HEPARIN NA (PORCINE) 5,000 UNITS/ML 1ML VIAL SQ SCH (05:49)
[2019-03-01 06:28] VITALS: PULSE 76; TEMP 98
[2019-03-01] MEDS: INSULIN SLIDING SCALE (NOVOLOG) 1 VIAL SQ SCH (07:13)
[2019-03-01] MEDS: TOLTERODINE TARTRATE LA 4 MG CAP.SR.24H (FP) PO SCH ×2 (07:15→11:05)
[2019-03-01 09:08] LABS: BLOOD UREA NITROGEN 25.5 mg/dL (7-18); CALCIUM 9.1 mg/dL (8.5-10.1); CREATININE 1.2 mg/dL (0.55-1.3)
[2019-03-01 10:43] VITALS: BP 179/81
[2019-03-01] MEDS ORDERED: LOSARTAN POTASSIUM 50 MG TABLET (FP) PO SCH (11:00)
[2019-03-01] MEDS: AMMONIUM LACTATE 12% LOTION 225 GM BOTTLE TP SCH (11:05)
[2019-03-01] MEDS: ASPIRIN COATED 81 MG TABLET.EC PO SCH (11:05)
[2019-03-01] MEDS: CARVEDILOL 6.25 MG TABLET (FP) PO SCH (11:05)
[2019-03-01] MEDS: GABAPENTIN 100 MG CAPSULE (FP) PO SCH (11:05)
--- NOTE | 2019-03-01 12:35 | DS ---
Physical Examination Vital Signs: Vital Signs Temperature 98 F 03/01/19 06:00 Pulse Rate 76 03/01/19 06:00 Respiratory Rate 17 03/01/19 06:00 Blood Pressure 179/81 H 03/01/19 10:34 O2 Sat by Pulse Oximetry (%) 99 02/28/19 21:00 Findings/Remarks: Denies any light headedness or fever . has no CP . feels better NAD , awake , alert, cooperative MMM, no facial droop, EOMI, round equal pupils, reactive to light. CV: RRR, no MRG , No JVD Lungs: CATB Ext : no edema or erythema Labs: CBC, BMP 02/28/19 05:30 03/01/19 08:15 Discharge Summary Reason For Visit: PRE-SYNCOPE,POSTURAL LIGHTHEDEDNESS,NAUSEA Current Active Problems Orthostatic dizziness (Acute) Hospital Course: 69 y/o lady with h/o HTN, HLP, DM , CAD, s/p stents, GERD, and h/o syncope due to orthostatic hypotension who presented with a syncopal episode. the patient's syncope was attributed to orthostatic hypotension as her vitals reflected that. she had signs of volume depletion including MATTHEW. so her doxazosin ( recently started ) and her losartan were held and she was given IVF. her sx improved and her cr normalized again. at dc she was started on her home BP regimen to follow up with her stock roller. as out pt she was prescribed macrobid for UTI but after obtaining UA results ( no cx ) her Abx were dc due to no evidence of UTI and due to chronic urgency and no other sx. dc home today time spent 30 min Condition: Improved - Instructions Diet, Activity, Other Instructions: - you were admitted for dizziness and was found to drop your blood pressure as you were dehydrated. your kidney function has improved after we gave you fluids - continue you blood pressure medications as per your pre-admission routine - it is important to follow with Dr. Mariscal, your stock roller in 1 week - check Your Blood pressure daily in am and take th elog to dr. Mariscal. - if your blood pressure is < 100 or > 180 please call MD for instructions - follow with your primary care doctor in 1 week . - drink plenty of fluids - do not take naproxen any more as it can injur your kidney - no need for antibiotics ( MAcrobid/nitrofurantoin ) Good luck Referrals: Adarsh Mariscal MD [Staff Physician] - 1 Week Disposition: VNS/HOME HEALTH CARE - Home Medications Comprehensive Discharge Medication List: Ambulatory Orders Simethicone [Gas Relief] 125 mg PO QID 07/01/18 Insulin NPH Human Isophane [Humulin N] 21 units SQ AM 08/15/18 Acetaminophen [Tylenol .Regular Strength -] 325 mg PO Q6H PRN tablet 08/16/18 Ammonium Lactate Cream [Lac-Hydrin 12% Cream -] 1 applic TP BID 02/27/19 Carvedilol [Coreg -] 6.25 mg PO BID 02/27/19 Doxazosin Mesylate 2 mg PO HS 02/27/19 Famotidine [Pepcid] 40 mg PO HS 02/27/19 Gabapentin 100 mg PO BID 02/27/19 Hydralazine HCl 25 mg PO TID 02/27/19 Insulin NPH Human Isophane [Humulin N Kwikpen] 12 unit SQ HS 02/27/19 Latanoprost 0.005% Eye Drops [Xalatan 0.005% Eye Drops -] 1 drop DAILY 02/27/19 Losartan Potassium 50 mg PO BID 02/27/19 Timolol 0.5% [Timoptic 0.5%] 1 drop OD DAILY 02/27/19 Tolterodine Tartrate LA [Detrol LA -] 4 mg PO DAILY 02/27/19 This patient is new to me today: No Emergency Visit: Yes ED Registration Date: 02/28/19 Care time: The patient presented to the Emergency Department on the above date and was hospitalized for further evaluation of their emergent condition. Critical Care patient: No - Discharge Referral Referred to [facility] Med P.C.: No
[2019-03-01] MEDS ORDERED: DOXAZOSIN MESYLATE 2 MG TABLET (FP) PO SCH (22:00)
== END 2019-03-01 12:50 | disposition home health service (06) | DRG 683 ==
LOC: JER 20:12 → JERBED 23:45 → J4W 02-27 17:45 → OBSVTOIN 02-28 10:34
PROVIDERS: ADMIT Internal Medicine; ATTEND Internal Medicine
DX: N17.9 Acute kidney failure, unspecified (principal); N39.0 Urinary tract infection, site not specified; I25.10 Atherosclerotic heart disease of native coronary artery without angina pectoris; Z98.61 Coronary angioplasty status; E11.9 Type 2 diabetes mellitus without complications; I10 Essential (primary) hypertension; K21.9 Gastro-esophageal reflux disease without esophagitis; I95.1 Orthostatic hypotension; E86.0 Dehydration; I16.0 Hypertensive urgency; R39.15 Urgency of urination
CPT/HCPCS: 36415; 70450-TC; 71045-TC-FY; 80048; 80053; 81003; 82550; 82553; 82607; 82962; 83690; 83735; 84443; 84484; 85025; 85027; 85651; 86140; 86593; 86850; 86900; 86901; 87086; 93005; 93010; 97116-GP; 97161-GP; 99284-25; G0378; J0131; J1644; J7030

== ENCOUNTER 2019-05-14 10:37 | Observation (INO) | payer OTHER ==
--- NOTE | 2019-05-14 11:03 | PDOC ---
History of Present Illness - General Chief Complaint: Blood Sugar Problem Stated Complaint: LOW SUGAR Time Seen by Provider: 05/14/19 11:03 - History of Present Illness Initial Comments: 05/14/19 11:48 Pt presents to the ED after foubd by home health aide with decreased responsiveness today. History of DM, recently changed from novalog to lantus by PMD. Takes lantus in AM. Patient reports that she took her lantus this AM and ate only a banana. Denies nausea and vomiting, fever or any other complaints. Eudora in her usual state of health prior to taking lantus this am. Patient had fs of 46 for EMS, improved to 299 after d 10. Past History - Past Medical History Allergies/Adverse Reactions: Allergies Allergy/AdvReac Type Severity Reaction Status Date / Time No Known Allergies Allergy Verified 02/26/19 20:23 Home Medications: Ambulatory Orders Simethicone [Gas Relief] 125 mg PO QID 07/01/18 Insulin NPH Human Isophane [Humulin N] 21 units SQ AM 08/15/18 Acetaminophen [Tylenol .Regular Strength -] 325 mg PO Q6H PRN tablet 08/16/18 Ammonium Lactate Cream [Lac-Hydrin 12% Cream -] 1 applic TP BID 02/27/19 Carvedilol [Coreg -] 6.25 mg PO BID 02/27/19 Doxazosin Mesylate 1 mg PO HS 02/27/19 Famotidine [Pepcid] 40 mg PO HS 02/27/19 Gabapentin 100 mg PO BID 02/27/19 Hydralazine HCl 25 mg PO TID 02/27/19 Insulin NPH Human Isophane [Humulin N Kwikpen] 12 unit SQ HS 02/27/19 Latanoprost 0.005% Eye Drops [Xalatan 0.005% Eye Drops -] 1 drop DAILY 02/27/19 Losartan Potassium 100 mg PO DAILY 02/27/19 Timolol 0.5% [Timoptic 0.5%] 1 drop OD DAILY 02/27/19 Tolterodine Tartrate LA [Detrol LA -] 2 mg PO DAILY 02/27/19 Anemia: No Cardiac Disorders: Yes (CAD) COPD: No CHF: No Diabetes: Yes GI Disorders: Yes (reflux) HTN: Yes Hypercholesterolemia: Yes - Surgical History Cholecystectomy: Yes - Immunization History Td Vaccination: No TDAP Vaccination: No Immunization Up to Date: No - Psycho Social/Smoking Cessation Hx Smoking History: Never smoked Have you smoked in the past 12 months: No Information on smoking cessation initiated: No Hx Alcohol Use: No Drug/Substance Use Hx: No Substance Use Type: None Hx Substance Use Treatment: No Review of Systems - Review of Systems Able to Perform ROS?: Yes Is the patient limited Polish proficient: No Constitutional: No: Symptoms Reported, See HPI, Chills, Diaphoresis, Fever, Loss of Appetite, Malaise, Night Sweats, Weakness, Weight Stable, Unintentional Wgt. Loss, Unexplained wgt Loss, Other HEENTM: No: Symptoms Reported, See HPI, Eye Pain, Blurred Vision, Tearing, Recent change in vision, Double Vision, Cataracts, Ear Pain, Ocular Prothesis, Ear Discharge, Nose Pain, Nose Congestion, Tinnitus, Nose Bleeding, Hearing Loss , Throat Pain, Throat Swelling, Mouth Pain, Dental Problems, Difficulty Swallowing, Mouth Swelling, Other Respiratory: No: Symptoms reported, See HPI, Cough, Orthopnea, Shortness of Breath, SOB with Exertion, SOB at Rest, Stridor, Wheezing, Productive cough, Hemoptysis, Other Cardiac (ROS): No: Symptoms Reported, See HPI, Chest Pain, Edema, Irregular Heart Rate, Lightheadedness, Palpitations, Syncope, Chest Tightness, Other ABD/GI: No: Symptoms Reported, See HPI, Abdominal Distended, Abd. Pain w/ defecation, Blood Streaked Bowels, Constipated, Diarrhea, Difficulty Swallowing , Nausea, Poor Appetite, Poor Fluid Intake, Rectal Bleeding, Vomiting, Indigestion, Abdominal cramping, Tarry Stools, Other : No: Symptoms Reported, See HPI, Burning, Dysuria, Discharge, Frequency, Flank Pain, Hematuria, Incontinence, Pain, Urgency, Testicular Mass, Testicular Swelling, Lesions, Testicular Pain, Other Musculoskeletal: No: Symptoms Reported, See HPI, Back Pain, Gout, Joint Pain, Joint Swelling, Muscle Pain, Muscle Weakness, Neck Pain, Joint Stiffness, Other Integumentary: No: Symptoms Reported, See HPI, Bruising, Change in Color, Change in Hair/Nails, Dryness, Erythema, Flushing, Lesions, Lumps, Pallor, Pruritus, Rash, Sweating, Other Neurological: No: Symptoms reported, See HPI, Headache, Numbness, Paresthesia, Pre-Existing Deficit, Seizure, Tingling, Tremors, Weakness, Unsteady Gait, Ataxia, Dizziness, Other Psychiatric: No: Anxiety, Depression, Frequent Crying, Stressors, Sleep Pattern Change, Emotional Problems, Mood Swings, Change in Appetite, Other Endocrine: No: Symptoms Reported, See HPI, Excessive Sweating, Flushing, Intolerance to Cold, Intolerance to Heat, Increased Hunger, Increased Thirst, Increased Urine, Unexplained Weight Gain, Unexplained Weight Loss, Change in Weight, Other Hematologic/Lymphatic: No: Symptoms Reported, See HPI, Anemia, Blood Clots, Easy Bleeding, Easy Bruising, Bleeding Diathesis, Lymph Node Abnormalities, Swollen Glands, Other *Physical Exam - Vital Signs Last Vital Signs Temp Pulse Resp BP Pulse Ox 97.1 F L 88 18 156/77 98 05/14/19 10:50 05/14/19 10:50 05/14/19 10:50 05/14/19 10:50 05/14/19 10:50 - Physical Exam Comments: 05/14/19 12:08 05/14/19 12:13 05/14/19 12:13 gen: alert, NAD' HEENT: normocephalic, atraumatic CV: rrr no m/r/g Pulm: CTA b/l Abdomen: soft, non tender, non distended Ext: no edema Neuro: alert and oriented x 3, no acute distress ED Treatment Course - LABORATORY CBC & Chemistry Diagram: 05/14/19 11:00 05/14/19 11:00 Medical Decision Making - Medical Decision Making 05/14/19 12:13 Pt presents to the ED after hypoglycemic episode after taking lantus. Recently changed from novalog to lantus by PMD. Given that she took lantus this AM, will admit for repeat fingersticks. Discharge - Discharge Information Problems reviewed: Yes Clinical Impression/Diagnosis: Hypoglycemia Condition: Good - Admission Yes - Follow up/Referral - Patient Discharge Instructions - Post Discharge Activity
[2019-05-14 11:18] LABS: BASO % 0.5 % (0-2.0); HEMATOCRIT 41.4 % (32.4-45.2); HEMOGLOBIN 13.7 GM/dL (10.7-15.3); MCH 28.5 pg (25.7-33.7); MEAN CELL VOLUME 86.2 fl (80-96); MEAN PLT VOLUME 9.8 fl (7.5-11.1); MONO % 9.3 % (3.8-10.2); NEUT % 56.2 % (42.8-82.8); PLATELET COUNT 211 K/MM3 (134-434); RDW 15.3 % (11.6-15.6); WHITE BLOOD COUNT 6.6 K/mm3 (4.0-10.0)
[2019-05-14 11:46] LABS: BLOOD UREA NITROGEN 25.9 mg/dL (7-18); CREATININE 1.5 mg/dL (0.55-1.3)
[2019-05-14] MEDS ORDERED: POTASSIUM CHLORIDE TABS 20 MEQ TABLET.ER (FP) PO ONE ×3 (11:48→13:48)
--- NOTE | 2019-05-14 13:51 | PN ---
Teaching Attending Note Name of Resident: Eloy Olivarez ATTENDING PHYSICIAN STATEMENT I saw and evaluated the patient. I reviewed the resident's note and discussed the case with the resident. I agree with the resident's findings and plan as documented with exceptions below. SUBJECTIVE: 69 yof with PMHx of HTN, HLD, IDDM , CAD, s/p stents, GERD, and h/o syncope due to orthostatic hypotension, recently changed from novolog (21 units AM, 12 units HS) to lantus 30 units QAm 2 weeks ago, took her lantus and jardiance, did not take any breakfast, just had banana, was about to go for shower when the aide noted patient with decreased responsiveness, finger stick was 40s. EMS was called, patient received D10, blood sugars improved to 299 after administration. Her mental status improved enroute to ED and was at baseline here. Denies any nausea, vomiting, poor oral intake, diarrhea or new concerns. OBJECTIVE: Vital Signs Period Temp Pulse Resp BP Sys/Gómez Pulse Ox Last 24 Hr 97.1 F 88 18 156/77 98 Intake & Output 05/11/19 05/12/19 05/13/19 05/14/19 23:59 23:59 23:59 23:59 Weight 150 lb GENERAL: Awake, alert, and fully oriented, in no acute distress. HEAD: Normal with no signs of trauma. EYES: Pupils equal, round and reactive to light, extraocular movements intact, sclera anicteric, conjunctiva clear. No lid lag. EARS, NOSE, THROAT: Ears normal, nares patent, oropharynx clear without exudates. Moist mucous membranes. NECK: Normal range of motion, supple, no JVD LUNGS: Breath sounds equal, clear to auscultation bilaterally. No wheezes, and no crackles. No accessory muscle use. HEART: Regular rate and rhythm, normal S1 and S2 ABDOMEN: Soft, nontender, not distended, normoactive bowel sounds, no guarding, no rebound, no masses. MUSCULOSKELETAL: Normal range of motion at all joints. No bony deformities or tenderness. No CVA tenderness. UPPER EXTREMITIES: 2+ pulses, warm, well-perfused. No cyanosis. No clubbing. No peripheral edema. LOWER EXTREMITIES: 2+ pulses, warm, well-perfused. No calf tenderness. No peripheral edema. NEUROLOGICAL: AAOx3, facial symmetry, tongue midline, Cranial nerves II-XII intact. Normal speech. gait not observed. PSYCHIATRIC: Cooperative. Good eye contact. Appropriate mood and affect. SKIN: Warm, dry, normal turgor, no rashes or lesions noted, normal capillary refill. Home Medications Medication Instructions Recorded Doxazosin Mesylate 1 mg PO HS 02/27/19 Famotidine [Pepcid] 40 mg PO HS 02/27/19 Latanoprost 0.005% Eye Drops 1 drop DAILY 02/27/19 [Xalatan 0.005% Eye Drops -] Losartan Potassium 100 mg PO DAILY 02/27/19 Timolol 0.5% [Timoptic 0.5%] 1 drop OD DAILY 02/27/19 Tolterodine Tartrate LA [Detrol LA 2 mg PO DAILY 02/27/19 -] Amlodipine Besylate 10 mg PO DAILY 05/14/19 Atenolol [Tenormin -] 25 mg PO DAILY 05/14/19 Atorvastatin Ca [Lipitor] 20 mg PO HS 05/14/19 Docusate Sodium [Colace] 100 mg PO DAILY 05/14/19 Empagliflozin [Jardiance] 10 mg PO DAILY 05/14/19 Hydrochlorothiazide [Hctz -] 25 mg PO AM 05/14/19 Insulin Glargine,Hum.rec.anlog 30 unit SQ AM 05/14/19 [Lantus] Active Medications Enoxaparin Sodium (Lovenox -) 40 mg SQ DAILY [facility] Sodium Chloride (Normal Saline -) 1,000 mls @ 50 mls/hr IV ASDIR [facility] Insulin Aspart (Novolog Vial Sliding Scale -) 1 vial SQ ACHS [facility]; Protocol Laboratory Results - last 24 hr 05/14/19 05/14/19 05/14/19 11:00 11:00 13:57 WBC 6.6 RBC 4.80 Hgb 13.7 Hct 41.4 D MCV 86.2 MCH 28.5 MCHC 33.0 RDW 15.3 Plt Count 211 MPV 9.8 D Absolute Neuts (auto) 3.7 Neutrophils % 56.2 Lymphocytes % 32.0 Monocytes % 9.3 Eosinophils % 2.0 Basophils % 0.5 Nucleated RBC % 0 Sodium 142 Potassium 3.0 L Chloride 106 Carbon Dioxide 31 Anion Gap 5 L BUN 25.9 H Creatinine 1.5 H Est GFR (CKD-EPI)AfAm 40.20 Est GFR (CKD-EPI)NonAf 34.69 POC Glucometer 262 Random Glucose 132 H Calcium 10.0 ASSESSMENT AND PLAN: 69 yof with PMhx of IDDM, HTN, HLD, CAD s/p PCI, GERD, prior syncope due to orthostatic hypotension, admitted with hypoglycemia -Hypoglycemia, from minimal oral intake after insulin/oral hypoglycemic +/- Mild MATTHEW -Mild MATTHEW on CKD stageII-III -Acute on chronic hypokalemia -IDDM -HTN -HLD -CAD s/p PCI -GERD -Prior syncope due to orthostatic hypotension Plan: Blood sugars improved, mental status at baseline. s/p jardiance and lantus this AM. BGM AC +HS. ISS, to start > 200. Patient and daughter counseled on appropriate oral intake with insulin and hypoglycemia. Monitor BGM 24 hours, will address with outpatient vault worker in AM accordingly. may need to dc on lower dose. Gentle hydration, monitor renal function. Continue other home meds including ARB. Replete K DVTPPX heparin Dispo admit to obs, d/c in 24 hours if no new concerns. Discussed with patient and daughters at bedside in detail, all questions answered total admission time 55 min.
[2019-05-14] MEDS ORDERED: SODIUM CHLORIDE 1,000 ML IV SCH (14:15)
--- NOTE | 2019-05-14 14:31 | HP ---
CHIEF COMPLAINT: lethargy, hypoglycemia PCP: Dr George Chavira HISTORY OF PRESENT ILLNESS: 69F w/ pmh of HTN, IDDM, CAD(stent 10ys prior), GERD brought in by EMS after episode of hypoglycemia(home BS ~ 44) w/a lethargy, somnolence, sweating. Patient is compliant with home medications. 2 weeks prior, was started on Lantus 30U(Dr Henderson), taken qAM. Pt takes daily AM FS, logged, usually >130s, one-time BS ~80. Today, BS ~134 at 0500. Took Lantus and Empagliflozin[JARDIANCE ] at ~0900 then took shower. Rincon weak during shower and decided to get out to rest. [employer] found pt diaphoretic, lethargic-appearing w/ cool extremities. Patient remembers feeling tired, then recalls the EMS ride. Currently, denies fatigue, chest pain, palpitations, SOB, dyspnea, abd pain. Has chronic constipation. Ate a meal of noodles last night. Had banana x1 in the AM. Usually ambulates throughout house w/ walker. ER course was notable for: (1) EMS: BS ~46, Dextrose given (2) ED: BS ~132, 262; eating sandwich (3) given K-dur Recent Travel: PAST MEDICAL HISTORY: HTN, IDDM, CAD(stent 10ys prior), GERD, fibroids PAST SURGICAL HISTORY: open cholecystectomy [facility] Social History: Smoking: denies Alcohol: denies Drugs: denies Allergies No Known Allergies Allergy (Verified 02/26/19 20:23) HOME MEDICATIONS: Home Medications Medication Instructions Recorded Simethicone [Gas Relief] 125 mg PO QID 07/01/18 Insulin NPH Human Isophane 21 units SQ AM 08/15/18 [Humulin N] Acetaminophen [Tylenol .Regular 325 mg PO Q6H PRN tablet 08/16/18 Strength -] Ammonium Lactate Cream [Lac-Hydrin 1 applic TP BID 02/27/19 12% Cream -] Carvedilol [Coreg -] 6.25 mg PO BID 02/27/19 Doxazosin Mesylate 1 mg PO HS 02/27/19 Famotidine [Pepcid] 40 mg PO HS 02/27/19 Gabapentin 100 mg PO BID 02/27/19 Hydralazine HCl 25 mg PO TID 02/27/19 Insulin NPH Human Isophane 12 unit SQ HS 02/27/19 [Humulin N Kwikpen] Latanoprost 0.005% Eye Drops 1 drop DAILY 02/27/19 [Xalatan 0.005% Eye Drops -] Losartan Potassium 100 mg PO DAILY 02/27/19 Timolol 0.5% [Timoptic 0.5%] 1 drop OD DAILY 02/27/19 Tolterodine Tartrate LA [Detrol LA 2 mg PO DAILY 02/27/19 -] REVIEW OF SYSTEMS CONSTITUTIONAL: Absent: fever, chills, diaphoresis, generalized weakness, malaise, loss of appetite HEENT: Absent: rhinorrhea, nasal congestion, difficulty swallowing, mouth swelling, visual changes CARDIOVASCULAR: Absent: chest pain, syncope, palpitations, irregular heart rate, lightheadedness , peripheral edema RESPIRATORY: Absent: cough, shortness of breath, dyspnea with exertion, orthopnea, wheezing, stridor, hemoptysis GASTROINTESTINAL: Absent: abdominal pain, abdominal distension, nausea, vomiting, diarrhea, constipation, melena, hematochezia GENITOURINARY: Absent: dysuria, frequency, urgency, hesitancy, hematuria MUSCULOSKELETAL: Absent: myalgia, arthralgia, joint swelling, back pain, neck pain SKIN: Absent: rash, itching, pallor NEUROLOGIC: Absent: headache, focal weakness or paresthesias, dizziness, unsteady gait, seizure, mental status changes, bladder or bowel incontinence PHYSICAL EXAMINATION Vital Signs - 24 hr 05/14/19 10:50 Temperature 97.1 F L Pulse Rate 88 Respiratory 18 Rate Blood Pressure 156/77 O2 Sat by Pulse 98 Oximetry (%) GENERAL: Awake, alert, and fully oriented. NAD HEAD: Normal with no signs of trauma. EYES: sclera anicteric, conjunctiva clear. EARS, NOSE, THROAT: Ears normal, nares patent. Moist mucous membranes. NECK: Normal range of motion, supple without lymphadenopathy, JVD, or masses. LUNGS: Breath sounds equal, clear to auscultation bilaterally. No wheezes, and no crackles. No accessory muscle use. HEART: Regular rate and rhythm, normal S1 and S2 without murmur, rub or gallop. ABDOMEN: lower midline vertical abd incision, Right subcostal surgical incision. Soft, nontender, not distended. ~1-2cm reducible hernia above the umbilicus MUSCULOSKELETAL: Normal range of motion at all joints. No bony deformities or tenderness. No CVA tenderness. UPPER EXTREMITIES: 2+ pulses, warm, well-perfused. No cyanosis. No peripheral edema. LOWER EXTREMITIES: 2+ pulses, warm, well-perfused. No calf tenderness. No peripheral edema. NEUROLOGICAL: Normal speech. Gait not observed. PSYCHIATRIC: Cooperative. Good eye contact. Appropriate mood and affect. SKIN: Warm, dry, normal turgor, no rashes or lesions noted, normal capillary refill. Laboratory Results - last 24 hr 05/14/19 05/14/19 11:00 11:00 WBC 6.6 RBC 4.80 Hgb 13.7 Hct 41.4 D MCV 86.2 MCH 28.5 MCHC 33.0 RDW 15.3 Plt Count 211 MPV 9.8 D Absolute Neuts (auto) 3.7 Neutrophils % 56.2 Lymphocytes % 32.0 Monocytes % 9.3 Eosinophils % 2.0 Basophils % 0.5 Nucleated RBC % 0 Sodium 142 Potassium 3.0 L Chloride 106 Carbon Dioxide 31 Anion Gap 5 L BUN 25.9 H Creatinine 1.5 H Est GFR (CKD-EPI)AfAm 40.20 Est GFR (CKD-EPI)NonAf 34.69 Random Glucose 132 H Calcium 10.0 ASSESSMENT/PLAN: 69F w/ pmh of HTN, IDDM, CAD(stent 10ys prior), GERD presenting with hypoglycemia at home. Took Lantus in the AM. BS >132 in the ED. ED decided to admit for concern of Lantus effect "peak" that could cause recurrent hypoglycemia # IDDM # hypoglycemia --2/2 Lantus 30U w/ small diet > BS: 132, 262 > HbA1c --routine, pending - ISS, BGM(AC[facility]) - diet - hypoglycemia # hypokalemia --monitor - replete PRN # MATTHEW > Cr 1.5, Baseline 1.2 - mIVF # HTN - cw home atenolol, amolidipine, losartan, HCTZ # HLD - cw atorvastatin # GERD - cw pepcid PRN FEN - NS @50 - diabetic diet DVT ppx - lovenox Family Medical History Family Hx Diabetes: Mother Family Hx Nuerologic Problems: Mother (stroke) Visit type - Emergency Visit Emergency Visit: Yes ED Registration Date: 05/14/19 Care time: The patient presented to the Emergency Department on the above date and was hospitalized for further evaluation of their emergent condition. - New Patient This patient is new to me today: Yes Date on this admission: 05/14/19 - Critical Care Critical Care patient: No ATTENDING PHYSICIAN STATEMENT I saw and evaluated the patient. I reviewed the resident's note and discussed the case with the resident. I agree with the resident's findings and plan as documented. SUBJECTIVE: OBJECTIVE: ASSESSMENT AND PLAN:
[2019-05-14 15:04] VITALS: BMI 28.3
[2019-05-14] MEDS ORDERED: DEXTROSE 50%-WATER - 25 GM/50 ML VIAL IVPUSH PRN (16:17)
[2019-05-14] MEDS: INSULIN SLIDING SCALE (NOVOLOG) 1 VIAL SQ SCH ×2 (17:59→21:34)
[2019-05-14] MEDS ORDERED: PT OWN MED DRAWER 7, Y5N ONE ×2 (20:57→21:27)
[2019-05-14] MEDS ORDERED: DOXAZOSIN MESYLATE 1 MG TABLET PO SCH (22:00)
[2019-05-14] MEDS ORDERED: ATORVASTATIN CA 20 MG TABLET (FP) PO SCH (22:00)
[2019-05-14] MEDS ORDERED: FAMOTIDINE 20 MG TABLET PO PRN (22:00)
[2019-05-15] MEDS: INSULIN SLIDING SCALE (NOVOLOG) 1 VIAL SQ SCH ×2 (06:03→11:26)
[2019-05-15] MEDS ORDERED: HYDROCHLOROTHIAZIDE 25 MG TABLET (FP) PO SCH (07:00)
[2019-05-15 08:36] LABS: HEMATOCRIT 38.3 % (32.4-45.2); MCHC 33.9 g/dl (32.0-36.0); MEAN CELL VOLUME 85.4 fl (80-96); MEAN PLT VOLUME 9.5 fl (7.5-11.1); PLATELET COUNT 209 K/MM3 (134-434); RBC 4.48 M/mm3 (3.60-5.2); RDW 15.5 % (11.6-15.6); WHITE BLOOD COUNT 4.7 K/mm3 (4.0-10.0)
[2019-05-15 09:19] LABS: BLOOD UREA NITROGEN 21.5 mg/dL (7-18); CALCIUM 9.7 mg/dL (8.5-10.1); CREATININE 1.3 mg/dL (0.55-1.3); PHOSPHOROUS 2.8 mg/dL (2.5-4.9); POTASSIUM 3.9 mmol/L (3.5-5.1)
[2019-05-15] MEDS: ATENOLOL 25 MG TABLET (FP) PO SCH ×2 (09:19→09:26)
[2019-05-15] MEDS: amLODIPine BESYLATE 10 MG TABLET (FP) PO SCH ×2 (09:19→09:26)
[2019-05-15 09:27] VITALS: BP 140/79; PULSE 105; TEMP 98
[2019-05-15] MEDS ORDERED: TOLTERODINE TARTRATE LA 2 MG CAP.SR.24H PO SCH (10:00)
[2019-05-15] MEDS ORDERED: TIMOLOL 0.5% OPHTHALMIC SOL 5 ML BOTTLE OD SCH (10:00)
[2019-05-15] MEDS ORDERED: ENOXAPARIN NA (PORCINE) 40 MG/0.4 ML DISP.SYRIN SQ SCH (10:00)
[2019-05-15] MEDS ORDERED: LOSARTAN POTASSIUM 50 MG TABLET (FP) PO SCH (10:00)
[2019-05-15] MEDS ORDERED: DOCUSATE SODIUM 100 MG CAPSULE (FP) PO SCH (10:00)
[2019-05-15] MEDS ORDERED: BISACODYL 10 MG SUPP.RECT PR ONE (11:39)
--- NOTE | 2019-05-15 13:04 | PN ---
Teaching Attending Note Name of Resident: Eloy Olivarez ATTENDING PHYSICIAN STATEMENT I saw and evaluated the patient. I reviewed the resident's note and discussed the case with the resident. I agree with the resident's findings and plan as documented with exceptions below. SUBJECTIVE: Patient seen and examined. no complaints, uneventful overnight. OBJECTIVE: Vital Signs Period Temp Pulse Resp BP Sys/Gómez Pulse Ox Last 24 Hr 97.8 F-98.5 F 90-105 18-18 140-159/79-94 97-98 Intake & Output 05/12/19 05/13/19 05/14/19 05/15/19 23:59 23:59 23:59 23:59 Intake Total 620 1215 Balance 620 1215 Weight 155 lb 2 oz General: sitting in bed, no acute distress neck: soft, supple Chest: CTAB, no rales or wheezing Abdomen:soft, NT Extremities: no edema Home Medications Medication Instructions Recorded Doxazosin Mesylate 1 mg PO HS 02/27/19 Famotidine [Pepcid] 40 mg PO HS 02/27/19 Latanoprost 0.005% Eye Drops 1 drop DAILY 02/27/19 [Xalatan 0.005% Eye Drops -] Losartan Potassium 100 mg PO DAILY 02/27/19 Timolol 0.5% [Timoptic 0.5%] 1 drop OD DAILY 02/27/19 Tolterodine Tartrate LA [Detrol LA 2 mg PO DAILY 02/27/19 -] Amlodipine Besylate 10 mg PO DAILY 05/14/19 Atenolol [Tenormin -] 25 mg PO DAILY 05/14/19 Atorvastatin Ca [Lipitor] 20 mg PO HS 05/14/19 Docusate Sodium [Colace] 100 mg PO DAILY 05/14/19 Empagliflozin [Jardiance] 10 mg PO DAILY 05/14/19 Hydrochlorothiazide [Hctz -] 25 mg PO AM 05/14/19 Insulin Glargine,Hum.rec.anlog 25 unit SQ AM #1 vial 05/15/19 [Lantus] Laboratory Results - last 24 hr 05/14/19 05/14/19 05/14/19 13:57 16:30 21:31 WBC RBC Hgb Hct MCV MCH MCHC RDW Plt Count MPV Sodium Potassium Chloride Carbon Dioxide Anion Gap BUN Creatinine Est GFR (CKD-EPI)AfAm Est GFR (CKD-EPI)NonAf POC Glucometer 262 181 199 Random Glucose Hemoglobin A1c % Calcium Phosphorus Magnesium 05/15/19 05/15/19 05/15/19 05:58 08:30 08:30 WBC 4.7 RBC 4.48 Hgb 13.0 Hct 38.3 MCV 85.4 MCH 29.0 MCHC 33.9 RDW 15.5 Plt Count 209 MPV 9.5 Sodium 141 Potassium 3.9 Chloride 110 H Carbon Dioxide 24 Anion Gap 7 L BUN 21.5 H Creatinine 1.3 Est GFR (CKD-EPI)AfAm 47.80 Est GFR (CKD-EPI)NonAf 41.24 POC Glucometer 148 Random Glucose 182 H Hemoglobin A1c % Calcium 9.7 Phosphorus 2.8 Magnesium 2.0 05/15/19 05/15/19 08:30 11:19 WBC RBC Hgb Hct MCV MCH MCHC RDW Plt Count MPV Sodium Potassium Chloride Carbon Dioxide Anion Gap BUN Creatinine Est GFR (CKD-EPI)AfAm Est GFR (CKD-EPI)NonAf POC Glucometer 247 Random Glucose Hemoglobin A1c % 8.6 H Calcium Phosphorus Magnesium ASSESSMENT AND PLAN: ASSESSMENT AND PLAN: 69 yof with PMhx of IDDM, HTN, HLD, CAD s/p PCI, GERD, prior syncope due to orthostatic hypotension, admitted with hypoglycemia -Hypoglycemia, from minimal oral intake after insulin/oral hypoglycemic +/- Mild MATTHEW -Mild MATTHEW on CKD stageII-III -Acute on chronic hypokalemia -IDDM -HTN -HLD -CAD s/p PCI -GERD -Prior syncope due to orthostatic hypotension Plan: Blood sugars/renal function stable. patient counseled on appropriate po intake with DM meds/insulin. She relays understanding. outpatient follow up with Dr. Henderson arranged home BGM monitoring and hypoglycemia teaching provided dc home today with outpatient f/u as above discussed with patient and CM.
--- NOTE | 2019-05-15 14:04 | EKG ---
Test Reason : Blood Pressure : / mmHG Vent. Rate : 102 BPM Atrial Rate : 102 BPM P-R Int : 134 ms QRS Dur : 088 ms QT Int : 368 ms P-R-T Axes : 047 040 033 degrees QTc Int : 479 ms SINUS TACHYCARDIA POSSIBLE LEFT ATRIAL ENLARGEMENT NONSPECIFIC T WAVE ABNORMALITY ABNORMAL ECG WHEN COMPARED WITH ECG OF 26-FEB-2019 20:39, VENT. RATE HAS INCREASED BY 37 BPM QT HAS LENGTHENED Confirmed by MEAGHAN ALLEN MD ([id number]) on 05/15/2019 2:04:18 PM Referred By: Confirmed By:MEAGHAN ALLEN MD
--- NOTE | 2019-05-15 15:08 | DS ---
Physical Exam: SUBJECTIVE: Patient seen and examined OBJECTIVE: Vital Signs Period Temp Pulse Resp BP Sys/Gómez Pulse Ox Last 24 Hr 97.8 F-98.5 F 90-105 18-18 140-159/79-79 98-98 PHYSICAL EXAM GENERAL: Awake, alert, and fully oriented. NAD HEAD: Normal with no signs of trauma. EYES: sclera anicteric, conjunctiva clear. EARS, NOSE, THROAT: Ears normal, nares patent. Moist mucous membranes. NECK: Normal range of motion, supple without lymphadenopathy, JVD, or masses. LUNGS: Breath sounds equal, clear to auscultation bilaterally. No wheezes, and no crackles. No accessory muscle use. HEART: Regular rate and rhythm, normal S1 and S2 without murmur, rub or gallop. ABDOMEN: lower midline vertical abd incision, Right subcostal surgical incision. Soft, nontender, not distended. ~1-2cm reducible hernia above the umbilicus MUSCULOSKELETAL: Normal range of motion at all joints. No bony deformities or tenderness. No CVA tenderness. UPPER EXTREMITIES: 2+ pulses, warm, well-perfused. No cyanosis. No peripheral edema. LOWER EXTREMITIES: 2+ pulses, warm, well-perfused. No calf tenderness. No peripheral edema. NEUROLOGICAL: Normal speech. Gait not observed. PSYCHIATRIC: Cooperative. Good eye contact. Appropriate mood and affect. SKIN: Warm, dry, normal turgor, no rashes or lesions noted, normal capillary refill. LABS Laboratory Results - last 24 hr 05/14/19 05/14/19 05/15/19 16:30 21:31 05:58 WBC RBC Hgb Hct MCV MCH MCHC RDW Plt Count MPV Sodium Potassium Chloride Carbon Dioxide Anion Gap BUN Creatinine Est GFR (CKD-EPI)AfAm Est GFR (CKD-EPI)NonAf POC Glucometer 181 199 148 Random Glucose Hemoglobin A1c % Calcium Phosphorus Magnesium 05/15/19 05/15/19 05/15/19 08:30 08:30 08:30 WBC 4.7 RBC 4.48 Hgb 13.0 Hct 38.3 MCV 85.4 MCH 29.0 MCHC 33.9 RDW 15.5 Plt Count 209 MPV 9.5 Sodium 141 Potassium 3.9 Chloride 110 H Carbon Dioxide 24 Anion Gap 7 L BUN 21.5 H Creatinine 1.3 Est GFR (CKD-EPI)AfAm 47.80 Est GFR (CKD-EPI)NonAf 41.24 POC Glucometer Random Glucose 182 H Hemoglobin A1c % 8.6 H Calcium 9.7 Phosphorus 2.8 Magnesium 2.0 05/15/19 11:19 WBC RBC Hgb Hct MCV MCH MCHC RDW Plt Count MPV Sodium Potassium Chloride Carbon Dioxide Anion Gap BUN Creatinine Est GFR (CKD-EPI)AfAm Est GFR (CKD-EPI)NonAf POC Glucometer 247 Random Glucose Hemoglobin A1c % Calcium Phosphorus Magnesium HOSPITAL COURSE: 69F w/ pmh of HTN, IDDM, CAD(stent 10ys prior), GERD presenting with hypoglycemia at home. Took Lantus in the AM. BS >132 in the ED. ED decided to admit for concern of Lantus effect "peak" that could cause recurrent hypoglycemia. HbA1c 8.6. BS improved. No episodes of hypoglycemia. Tolerated diet. Asymptomatic. Lantus reduced from 30U to 25U with instructions to fu w/ Endo(Santiago). Date of Admission:05/14/19 Date of Discharge: 05/15/19 Minutes to complete discharge: 20 Discharge Summary Problems reviewed: Yes Reason For Visit: HYPOGLYCEMIA Condition: Stable - Instructions Diet, Activity, Other Instructions: You were evaluated in the hospital for lethargy, sweating, found to have low blood sugar. You were given intravenous sugar and given a diabetic diet. Your symptoms improved and your blood sugar improved. Medications: - CHANGES: please reduce your Glargine[LANTUS] to 25units before breakfast - Please continue your other home medications Please follow-up with the Physicians below in the next 1-2weeks: - Still Operator Brandy(Dr Henderson [phone]): please discuss adjusting your diabetic medications - Primary care doctor within 1 week. - Kidney function check (BMP) in 1 week with your doctor - Please discuss with your doctor for outpatient nephrology follow up. Additional instructions: - please plan to eat at least half a meal after taking your morning Lantus medication - Please take your blood sugar daily, in the morning and at bedtime, and bring this log with you on your appointment with Dr. Henderson. Please seek immediate Medical Evaluation or go to the Emergency Department if you experience: - dizziness, severe confusion, shortness of breath, trouble breathing, palpitations, chest pain Referrals: Gonzalez Henderson [Other] [facility] [place] [Provider Group] - 1 Week Disposition: VNS/HOME HEALTH CARE - Home Medications Comprehensive Discharge Medication List: Ambulatory Orders Doxazosin Mesylate 1 mg PO HS 02/27/19 Famotidine [Pepcid] 40 mg PO HS 02/27/19 Latanoprost 0.005% Eye Drops [Xalatan 0.005% Eye Drops -] 1 drop DAILY 02/27/19 Losartan Potassium 100 mg PO DAILY 02/27/19 Timolol 0.5% [Timoptic 0.5%] 1 drop OD DAILY 02/27/19 Tolterodine Tartrate LA [Detrol LA -] 2 mg PO DAILY 02/27/19 Amlodipine Besylate 10 mg PO DAILY 05/14/19 Atenolol [Tenormin -] 25 mg PO DAILY 05/14/19 Atorvastatin Ca [Lipitor] 20 mg PO HS 05/14/19 Docusate Sodium [Colace] 100 mg PO DAILY 05/14/19 Empagliflozin [Jardiance] 10 mg PO DAILY 05/14/19 Hydrochlorothiazide [Hctz -] 25 mg PO AM 05/14/19 Blood Sugar Diagnostic [Glucose Test Strip] 1 each MC DAILY #30 strip 05/15/19 Insulin Glargine,Hum.rec.anlog [Lantus] 25 unit SQ AM #1 vial 05/15/19 This patient is new to me today: No Emergency Visit: No Critical Care patient: No - Discharge Referral Referred to [facility] No ATTENDING PHYSICIAN STATEMENT I saw and evaluated the patient. I reviewed the resident's note and discussed the case with the resident. I agree with the resident's findings and plan as documented. SUBJECTIVE: OBJECTIVE: ASSESSMENT AND PLAN:
== END 2019-05-15 14:37 | disposition home health service (06) ==
LOC: JER 10:37 → UNDOADMOB 13:19 → INTOOBSV 13:19 → JERBED 13:19 → J6S 14:37
PROVIDERS: ADMIT Hospitalist; ATTEND Hospitalist
PROC: 3E0337Z Introduction of Electrolytic and Water Balance Substance into Peripheral Vein, Percutaneous Approach (ICD-10-PCS; principal; 2019-05-14)
PROC: 3E013VG Introduction of Insulin into Subcutaneous Tissue, Percutaneous Approach (ICD-10-PCS; 2019-05-14)
PROC: 3E013GC Introduction of Other Therapeutic Substance into Subcutaneous Tissue, Percutaneous Approach (ICD-10-PCS; 2019-05-14)
DX: E11.649 Type 2 diabetes mellitus with hypoglycemia without coma (principal); Z79.4 Long term (current) use of insulin; I10 Essential (primary) hypertension; I25.10 Atherosclerotic heart disease of native coronary artery without angina pectoris; E78.5 Hyperlipidemia, unspecified; K21.9 Gastro-esophageal reflux disease without esophagitis; Z95.5 Presence of coronary angioplasty implant and graft; E11.22 Type 2 diabetes mellitus with diabetic chronic kidney disease; I12.9 Hypertensive chronic kidney disease with stage 1 through stage 4 chronic kidney disease, or unspecified chronic kidney disease; N18.3 Chronic kidney disease, stage 3 (moderate); N17.9 Acute kidney failure, unspecified; E87.6 Hypokalemia
CPT/HCPCS: 36415; 80048; 82962; 83036; 83735; 84100; 85025; 85027; 93005; 93010; 94010; 96372; 99284-25; G0378; J7030

== ENCOUNTER 2020-05-18 06:30 | Observation (INO) | payer OTHER ==
[2020-05-18 07:02] VITALS: BMI 27.8
[2020-05-18] MEDS ORDERED: ONDANSETRON 4 MG/2 ML VIAL IVPUSH ONE (07:40)
[2020-05-18] MEDS ORDERED: PANTOPRAZOLE SODIUM 40 MG VIAL IVPUSH ONE (07:40)
[2020-05-18] MEDS ORDERED: SODIUM CHLORIDE 500 ML IV STA (07:42)
[2020-05-18] MEDS ORDERED: PANTOPRAZOLE SODIUM 40 MG/100 ML BAG IVPB ONE (07:52)
[2020-05-18 08:05] LABS: INR 0.9 (0.83-1.09); PROTHROMBIN TIME (PATIENT) 10.9 SEC (9.7-13.0)
[2020-05-18 08:11] LABS: EOS % 1.7 % (0-4.5); HEMATOCRIT 43.3 % (32.4-45.2); HEMOGLOBIN 14.4 GM/dL (10.7-15.3); LYMPH % 25.9 % (8-40); MCH 28.4 pg (25.7-33.7); MCHC 33.2 g/dl (32.0-36.0); MEAN CELL VOLUME 85.5 fl (80-96); MEAN PLT VOLUME 9.9 fl (7.5-11.1); MONO % 6.7 % (3.8-10.2); NEUT % 64.7 % (42.8-82.8); PLATELET COUNT 198 K/MM3 (134-434); RBC 5.07 M/mm3 (3.60-5.2); RDW 16.1 % (11.6-15.6); WHITE BLOOD COUNT 5.3 K/mm3 (4.0-10.0)
[2020-05-18 08:21] LABS: CHLORIDE 107 mmol/L (98-107); SODIUM 139 mmol/L (136-145)
[2020-05-18 08:23] LABS: ALBUMIN 3.4 g/dl (3.4-5.0); ANION GAP 7 MMOL/L (8-16); BLOOD UREA NITROGEN 22.9 mg/dL (7-18); CALCIUM 9.7 mg/dL (8.5-10.1); CO2 26 mmol/L (21-32); GLUCOSE,RANDOM 181 mg/dL (74-106)
[2020-05-18 08:26] LABS: CREATININE 1.2 mg/dL (0.55-1.3); SGOT/AST 18 U/L (15-37); SGPT/ALT 29 U/L (13-61)
[2020-05-18 08:28] LABS: BILIRUBIN,TOTAL 0.4 mg/dL (0.2-1); TOT PROT 7.6 g/dl (6.4-8.2)
[2020-05-18 08:29] LABS: ALK PHOS 115 U/L (45-117)
[2020-05-18] MEDS ORDERED: MECLIZINE HCL 25 MG TABLET (FP) PO ONE (09:58)
[2020-05-18] MEDS ORDERED: MECLIZINE HCL 25 MG TABLET (FP) ONE (10:29)
[2020-05-18] MEDS ORDERED: NITROGLYCERIN 2% OINTMENT - 1GM PACKET TD ONE ×2 (10:51→12:08)
[2020-05-18] MEDS ORDERED: ACETAMINOPHEN 1000 MG/100 ML VIAL (NON FORMULARY) IVPB ONE (10:51)
[2020-05-18] MEDS ORDERED: ACETAMINOPHEN INJECTION 100 ML IVPB ONE (11:08)
[2020-05-18 11:42] LABS: BASO % 0.2 % (0-2.0); EOS % 0.3 % (0-4.5); HEMATOCRIT 42.3 % (32.4-45.2); HEMOGLOBIN 13.9 GM/dL (10.7-15.3); MCH 28.2 pg (25.7-33.7); MCHC 32.9 g/dl (32.0-36.0); MEAN PLT VOLUME 9.9 fl (7.5-11.1); MONO % 5.1 % (3.8-10.2); NEUT % 77.4 % (42.8-82.8); PLATELET COUNT 193 K/MM3 (134-434); RBC 4.92 M/mm3 (3.60-5.2); RDW 16.2 % (11.6-15.6); WHITE BLOOD COUNT 7.7 K/mm3 (4.0-10.0)
[2020-05-18] MEDS ORDERED: ONDANSETRON 4 MG/2 ML VIAL IVPUSH PRN (14:49)
[2020-05-18] MEDS ORDERED: SODIUM CHLORIDE 1,000 ML IV SCH (15:30)
[2020-05-18] MEDS: INSULIN SLIDING SCALE (NOVOLOG) 1 VIAL SQ SCH ×2 (17:56→23:57)
[2020-05-18] MEDS ORDERED: DOXAZOSIN MESYLATE 1 MG TABLET PO SCH (22:00)
[2020-05-18] MEDS: PANTOPRAZOLE SODIUM 40 MG VIAL IVPUSH SCH (23:57)
[2020-05-19] MEDS: INSULIN SLIDING SCALE (NOVOLOG) 1 VIAL SQ SCH ×4 (06:14→22:48)
[2020-05-19 06:46] LABS: BASO % 0.7 % (0-2.0); EOS % 2.8 % (0-4.5); HEMATOCRIT 38.7 % (32.4-45.2); HEMOGLOBIN 12.5 GM/dL (10.7-15.3); LYMPH % 29.3 % (8-40); MCH 27.6 pg (25.7-33.7); MCHC 32.4 g/dl (32.0-36.0); MEAN CELL VOLUME 85.3 fl (80-96); MEAN PLT VOLUME 9.9 fl (7.5-11.1); MONO % 6.9 % (3.8-10.2); NEUT % 60.3 % (42.8-82.8); PLATELET COUNT 187 K/MM3 (134-434); RBC 4.54 M/mm3 (3.60-5.2); RDW 16.8 % (11.6-15.6); WHITE BLOOD COUNT 5.5 K/mm3 (4.0-10.0)
[2020-05-19 07:03] LABS: POTASSIUM 4.5 mmol/L (3.5-5.1)
[2020-05-19 07:06] LABS: CALCIUM 9.4 mg/dL (8.5-10.1)
[2020-05-19 07:07] LABS: ALBUMIN 2.9 g/dl (3.4-5.0); BLOOD UREA NITROGEN 29.3 mg/dL (7-18); MAGNESIUM 2.4 mg/dL (1.8-2.4)
[2020-05-19 07:09] LABS: CREATININE 1.3 mg/dL (0.55-1.3)
[2020-05-19 07:10] LABS: PHOSPHOROUS 3.5 mg/dL (2.5-4.9)
[2020-05-19 07:11] LABS: BILIRUBIN,TOTAL 0.8 mg/dL (0.2-1); CHOLESTEROL 139 mg/dL (50-200); TOT PROT 6.6 g/dl (6.4-8.2)
[2020-05-19 07:12] LABS: TRIGLYCERIDES 82 mg/dL (0-150)
[2020-05-19 07:13] LABS: LDL CHOLESTEROL (ONLY SJRH) 59 mg/dL (5-100)
[2020-05-19 07:14] LABS: HDL CHOLESTEROL 74 mg/dL (40-60)
[2020-05-19] MEDS: DULoxetine HCL 20 MG CAPSULE.DR PO SCH (09:27)
[2020-05-19] MEDS: PANTOPRAZOLE SODIUM 40 MG VIAL IVPUSH SCH ×2 (09:27→22:48)
[2020-05-19] MEDS: TIMOLOL 0.5% OPHTHALMIC SOL 5 ML BOTTLE OD SCH (09:28)
[2020-05-19] MEDS ORDERED: amLODIPine BESYLATE 10 MG TABLET (FP) PO SCH (10:00)
[2020-05-19] MEDS ORDERED: ATENOLOL 25 MG TABLET (FP) PO SCH (10:00)
[2020-05-19] MEDS: LACTATED RINGERS SOLUTION 1,000 ML/1,000 ML INFUS.BAG IV SCH (10:25)
[2020-05-19] MEDS ORDERED: INSULIN (NOVOLOG) ASPART 100 UNITS/ML 10ML VIAL ONE (16:53)
[2020-05-19] MEDS ORDERED: PT OWN MED DRAWER 7, Y5N ONE (22:40)
[2020-05-19] MEDS: LATANOPROST 0.005% OPHTH SOLN 2.5ML BOTTLE OD SCH (22:59)
[2020-05-20] MEDS: INSULIN SLIDING SCALE (NOVOLOG) 1 VIAL SQ SCH ×4 (06:02→22:18)
[2020-05-20 07:12] LABS: BASO % 0.9 % (0-2.0); EOS % 3.6 % (0-4.5); HEMATOCRIT 40.6 % (32.4-45.2); HEMOGLOBIN 13.4 GM/dL (10.7-15.3); LYMPH % 36.1 % (8-40); MCH 28.1 pg (25.7-33.7); MEAN PLT VOLUME 9.6 fl (7.5-11.1); MONO % 8.1 % (3.8-10.2); NEUT % 51.3 % (42.8-82.8); PLATELET COUNT 183 K/MM3 (134-434); RBC 4.77 M/mm3 (3.60-5.2); RDW 16.1 % (11.6-15.6); WHITE BLOOD COUNT 5.2 K/mm3 (4.0-10.0)
[2020-05-20 07:36] LABS: BLOOD UREA NITROGEN 26.8 mg/dL (7-18); CALCIUM 8.8 mg/dL (8.5-10.1)
[2020-05-20 07:40] LABS: CREATININE 1.2 mg/dL (0.55-1.3)
[2020-05-20 09:12] LABS: HIV INTERPRETATION NEGATIVE (NEGATIVE)
[2020-05-20] MEDS: DULoxetine HCL 20 MG CAPSULE.DR PO SCH (09:16)
[2020-05-20] MEDS: PANTOPRAZOLE SODIUM 40 MG VIAL IVPUSH SCH ×2 (09:16→22:20)
[2020-05-20] MEDS: LACTATED RINGERS SOLUTION 1,000 ML/1,000 ML INFUS.BAG IV SCH (09:22)
[2020-05-20] MEDS ORDERED: PENICILLIN G BENZATHINE 2,400,000 UNIT/4 ML PFS IM ONE (10:01)
[2020-05-20] MEDS: TIMOLOL 0.5% OPHTHALMIC SOL 5 ML BOTTLE OD SCH (10:34)
[2020-05-20] MEDS ORDERED: amLODIPine BESYLATE 10 MG TABLET (FP) PO ONE (13:58)
[2020-05-20] MEDS ORDERED: ATENOLOL 25 MG TABLET (FP) PO ONE (14:57)
[2020-05-20] MEDS ORDERED: FUROSEMIDE 20 MG TABLET (FP) PO ONE (16:41)
[2020-05-20] MEDS: LATANOPROST 0.005% OPHTH SOLN 2.5ML BOTTLE OD SCH (22:28)
[2020-05-21 02:31] VITALS: TEMP 98.1
[2020-05-21] MEDS: INSULIN SLIDING SCALE (NOVOLOG) 1 VIAL SQ SCH (06:30)
[2020-05-21] MEDS ORDERED: amLODIPine BESYLATE 10 MG TABLET (FP) PO ONE (07:40)
[2020-05-21 08:26] VITALS: BP 155/74; PULSE 62
[2020-05-21] MEDS: DULoxetine HCL 20 MG CAPSULE.DR PO SCH (09:06)
[2020-05-21] MEDS: TIMOLOL 0.5% OPHTHALMIC SOL 5 ML BOTTLE OD SCH (09:07)
[2020-05-21] MEDS: PANTOPRAZOLE SODIUM 40 MG VIAL IVPUSH SCH (09:07)
[2020-05-21] MEDS ORDERED: ATENOLOL 25 MG TABLET (FP) PO SCH (10:00)
== END 2020-05-21 11:17 | disposition home or self-care (01) ==
LOC: SUPCPDRO 06:30 → JER 06:30 → INTOOBSV 14:17 → UNDOADMOB 14:17 → JERBED 14:17 → J4W 20:43
PROVIDERS: ATTEND Student in an Organized Health Care Education/Training Program
PROC: 3E02329 Introduction of Other Anti-infective into Muscle, Percutaneous Approach (ICD-10-PCS; principal; 2020-05-18)
PROC: 3E0337Z Introduction of Electrolytic and Water Balance Substance into Peripheral Vein, Percutaneous Approach (ICD-10-PCS; 2020-05-18)
DX: K92.0 Hematemesis (principal); H81.10 Benign paroxysmal vertigo, unspecified ear; E11.9 Type 2 diabetes mellitus without complications; I25.10 Atherosclerotic heart disease of native coronary artery without angina pectoris; I11.9 Hypertensive heart disease without heart failure; R94.31 Abnormal electrocardiogram [ECG] [EKG]; K21.9 Gastro-esophageal reflux disease without esophagitis; A53.0 Latent syphilis, unspecified as early or late; Z23 Encounter for immunization; Z95.5 Presence of coronary angioplasty implant and graft
CPT/HCPCS: 36415; 70450-TC; 71045-TC-FY; 80048; 80053; 80061; 82550; 82607; 82962; 83036; 83721; 83735; 84100; 84439; 84443; 84484; 85025; 85610; 85651; 86593; 86780; 86850; 86900; 86901; 87389; 93005; 93010; 93306-TC; 96361; 96372; 96374; 96375; 97116-GP; 97161-GP; 99285-25; C9803; G0378; J0131; U0003

== ENCOUNTER 2021-10-30 06:05 | Emergency (ER) | payer OTHER ==
[2021-10-30 06:21] VITALS: TEMP 98; BMI 27.1
[2021-10-30] MEDS ORDERED: MECLIZINE HCL 25 MG TABLET (FP) PO ONE (08:13)
[2021-10-30] MEDS ORDERED: MECLIZINE HCL 25 MG TABLET (FP) ONE (08:19)
[2021-10-30] MEDS ORDERED: MAG HYDROX/AL HYDROX/SIMETH 30 ML UNIT-DOSE CUP PO ONE (08:33)
[2021-10-30] MEDS ORDERED: FAMOTIDINE 20 MG/50 ML IVPB 20 MG/50 ML MG IVPB ONE (08:33)
[2021-10-30] MEDS ORDERED: FAMOTIDINE 10 MG/ML VIAL IVPB ONE (08:36)
[2021-10-30] MEDS ORDERED: MAG HYDROX/AL HYDROX/SIMETH 30 ML UNIT-DOSE CUP ONE (08:36)
[2021-10-30 08:54] LABS: BASO % 0.9 % (0-2.0); EOS % 0.9 % (0-4.5); HEMATOCRIT 40.7 % (32.4-45.2); HEMOGLOBIN 13.9 GM/dL (10.7-15.3); MCH 29.5 pg (25.7-33.7); MCHC 34.3 g/dl (32.0-36.0); MEAN PLT VOLUME 9.1 fl (7.5-11.1); MONO % 4.6 % (3.8-10.2); NEUT % 72.6 % (42.8-82.8); PLATELET COUNT 213 10^3/uL (134-434); RBC 4.73 M/mm3 (3.60-5.2); RDW 15.8 % (11.6-15.6); WHITE BLOOD COUNT 5.9 K/mm3 (4.0-10.0)
[2021-10-30 09:19] VITALS: BP 162/82; PULSE 65
[2021-10-30 09:23] LABS: CALCIUM 10.1 mg/dL (8.5-10.1)
[2021-10-30 09:25] LABS: ALBUMIN 3.4 g/dl (3.4-5.0); BLOOD UREA NITROGEN 32.8 mg/dL (7-18)
[2021-10-30 09:28] LABS: CREATININE 1.3 mg/dL (0.55-1.3)
[2021-10-30 09:29] LABS: BILIRUBIN,TOTAL 0.4 mg/dL (0.2-1)
[2021-10-30 09:31] LABS: TOT PROT 7.9 g/dl (6.4-8.2)
== END 2021-10-30 13:34 | disposition home or self-care (01) ==
LOC: JER 06:05
PROC: 3E033GC Introduction of Other Therapeutic Substance into Peripheral Vein, Percutaneous Approach (ICD-10-PCS; principal; 2021-10-30)
DX: R42 Dizziness and giddiness (principal); I10 Essential (primary) hypertension
CPT/HCPCS: 36415; 80053; 84484; 85025; 93005; 93010; 96374; 99284-25

== ENCOUNTER 2022-09-03 11:18 | Emergency (ER) | payer OTHER ==
[2022-09-03 12:03] VITALS: PULSE 105; RESP 18; TEMP 98.8; BMI 26.6
[2022-09-03] MEDS ORDERED: IBUPROFEN 400 MG TABLET (FP) PO ONE ×2 (12:52→12:53)
[2022-09-03 15:00] VITALS: BP 139/83
== END 2022-09-03 15:11 | disposition home or self-care (01) ==
LOC: JER 11:18 → JERFT 11:18
DX: H66.92 Otitis media, unspecified, left ear (principal)
CPT/HCPCS: 99283-25